=== PATIENT | female | born 1970 | race Two or more races ===

== ENCOUNTER → 2020-05-01 08:53 | Outpatient (BNVA) | payer OTHER, SELFPAY | PROVIDERS: PCP Internal Medicine; Visit Provider Physician Assistant Medical | DX: S43.51XA Sprain of right acromioclavicular joint, initial encounter (principal); S06.9X0A Unspecified intracranial injury without loss of consciousness, initial encounter; V43.61XA Car passenger injured in collision with sport utility vehicle in traffic accident, initial encounter | CPT/HCPCS: 72050; 73030; 99203 ==

== ENCOUNTER 2020-05-06 07:12 | Outpatient (REF) | payer OTHER, SELFPAY ==
[2020-05-06 09:01] LABS: Creatinine Urine 123.48 mg/dL; Microalbum/Creatinine Ratio Ur 6.4 ug/mg cr
== END 2020-05-06 07:13 | disposition home or self-care (01) ==
LOC: HO.LAB 07:12
PROVIDERS: Absent Provider Internal Medicine; PCP Internal Medicine; Visit Provider Internal Medicine Endocrinology, Diabetes & Metabolism
DX: E11.9 Type 2 diabetes mellitus without complications (principal)
CPT/HCPCS: 82043

== ENCOUNTER → 2020-05-08 13:05 | Outpatient (BNVA) | payer OTHER, SELFPAY | PROVIDERS: PCP Internal Medicine; Visit Provider Physician Assistant Medical | DX: S16.1XXA Strain of muscle, fascia and tendon at neck level, initial encounter (principal); S46.911A Strain of unspecified muscle, fascia and tendon at shoulder and upper arm level, right arm, initial encounter; S06.9X0A Unspecified intracranial injury without loss of consciousness, initial encounter; V89.2XXA Person injured in unspecified motor-vehicle accident, traffic, initial encounter | CPT/HCPCS: 99213 ==

== ENCOUNTER 2020-05-15 18:33 | Outpatient (REF) | payer OTHER, SELFPAY ==
--- NOTE | 2020-05-15 19:00 | MR_ITS ---
EXAMINATION: MR BRAIN WITHOUT CONTRAST CLINICAL INFORMATION: Concussion. Persistent headaches. COMPARISON: None. TECHNIQUE: Multiplanar, multisequence imaging of the brain was performed without contrast. FINDINGS: No diffusion abnormalities are identified to suggest an acute infarct. The ventricles are normal in size. No mass effect or midline shift is seen. No brain parenchymal signal abnormality is noted. No extra-axial fluid collections are seen. The brainstem and cerebellum are normal. The gradient refocused acquisition is normal. The craniovertebral junction, marrow signal, and midline structures are normal. The major intracranial flow voids at the level of the [place] are preserved. The dural venous sinus flow voids are maintained. The mastoid air cells are well aerated. There is mild to moderate ethmoid sinus mucosal thickening and milder left frontal sinus mucosal thickening. MR/MR head/brain wo con IMPRESSION: Normal MRI of the brain. No acute process. Mild to moderate ethmoid sinus mucosal thickening.
== END 2020-05-15 18:34 | disposition home or self-care (01) ==
LOC: HO.MRI 18:33
PROVIDERS: Visit Provider Internal Medicine
DX: S06.0X9A Concussion with loss of consciousness of unspecified duration, initial encounter (principal); R51.9 Headache, unspecified
CPT/HCPCS: 70551

== ENCOUNTER → 2020-05-22 08:49 | Outpatient (BNVA) | payer OTHER, SELFPAY | PROVIDERS: PCP Internal Medicine; Visit Provider Physician Assistant Medical | DX: S06.9X0D Unspecified intracranial injury without loss of consciousness, subsequent encounter (principal); S16.1XXD Strain of muscle, fascia and tendon at neck level, subsequent encounter; S43.51XD Sprain of right acromioclavicular joint, subsequent encounter; V89.2XXD Person injured in unspecified motor-vehicle accident, traffic, subsequent encounter | CPT/HCPCS: 99213 ==

== ENCOUNTER → 2020-05-30 09:43 | Outpatient (BNVA) | payer OTHER, SELFPAY | PROVIDERS: PCP Internal Medicine; Visit Provider Physician Assistant Medical | DX: S06.9X0D Unspecified intracranial injury without loss of consciousness, subsequent encounter (principal); S16.1XXD Strain of muscle, fascia and tendon at neck level, subsequent encounter; S43.51XD Sprain of right acromioclavicular joint, subsequent encounter; V89.2XXD Person injured in unspecified motor-vehicle accident, traffic, subsequent encounter | CPT/HCPCS: 99213 ==

== ENCOUNTER → 2020-06-16 10:50 | Outpatient (BNVA) | payer OTHER, SELFPAY | PROVIDERS: PCP Internal Medicine; Visit Provider Physician Assistant | DX: M54.40 Lumbago with sciatica, unspecified side (principal) | CPT/HCPCS: 99214 ==

== ENCOUNTER → 2020-06-20 08:53 | Outpatient (BNVA) | payer OTHER, SELFPAY | PROVIDERS: PCP Internal Medicine; Visit Provider Physician Assistant Medical | DX: S06.9X0D Unspecified intracranial injury without loss of consciousness, subsequent encounter (principal); S16.1XXD Strain of muscle, fascia and tendon at neck level, subsequent encounter; S43.50XD Sprain of unspecified acromioclavicular joint, subsequent encounter; V89.2XXD Person injured in unspecified motor-vehicle accident, traffic, subsequent encounter; M54.5 Low back pain | CPT/HCPCS: 99213 ==

== ENCOUNTER 2020-06-26 03:33 | Emergency (ER) | payer OTHER, SELFPAY ==
--- NOTE | ~2020-06-26 | US_ITS ---
EXAMINATION: US ABDOMEN LIMITED CLINICAL INFORMATION: Right upper quadrant pain.. COMPARISON: CT abdomen pelvis report 02/01/2011. TECHNIQUE: Targeted right upper quadrant grayscale and color Doppler ultrasonography of the gallbladder. FINDINGS: The gallbladder appears physiologically distended. No cholelithiasis is noted. The gallbladder wall thickness measures 2 mm, within normal limits of size. No pericholecystic fluid collections are identified. Incidentally visualized liver is normal in appearance without evidence of gross biliary duct dilatation. The visualized common bile duct measures 5.5 mm in width, within normal limits of size. The department coordinator report indicates real-time tenderness in the region of the gallbladder during sonographic evaluation. US/US abdomen limited IMPRESSION: 1. Normal sonographic appearance of the gallbladder. No cholelithiasis identified. The visualized common bile duct is normal in caliber. 2. Possible sonographic Cabral sign. The computer technologist reported tenderness in the region of the gallbladder during real-time sonographic evaluation.
--- NOTE | ~2020-06-26 | CT_ITS ---
EXAMINATION: CT ABDOMEN AND PELVIS WITHOUT CONTRAST CLINICAL INFORMATION: Right lower quadrant pain. COMPARISON: Abdominal ultrasound performed today, CT scan of the abdomen dated 02/01/2011. TECHNIQUE: Multidetector volumetric imaging was performed from the superior aspect of the liver through the pubic symphysis. Sagittal and coronal reformatted images were obtained on the technologist's workstation. Lack of intravenous and oral contrast limits visceral evaluation. This CT examination was performed using dose optimization techniques as appropriate, variously including the following: *Automated exposure control *Adjustment of mA and/or kV according to patient size (this includes techniques or standardized protocols for targeted exams where dose is matched to indication/reason for exam; i.e. extremities or head) *Use of iterative reconstruction technique DLP: 574 mGy-cm FINDINGS: LUNG BASES: The visualized lung bases are unremarkable. LIVER, GALLBLADDER, AND BILIARY TREE: Hepatic steatosis with areas of fatty sparing in the left lobe and in the right lobe towards the dome without definitive focal abnormality. PANCREAS: Unremarkable. SPLEEN: Unremarkable. ADRENAL GLANDS: Unremarkable. KIDNEYS AND URETERS: Moderate right hydroureteronephrosis and perinephric stranding are seen caused by a 0.4 cm calculus at the level the right ureterovesical junction (image 81, series 3). Several right intrarenal calculi are seen as well, the largest of which is seen in the lower pole measuring 0.3 cm (image 29, series 5). The left kidney and ureter are unremarkable. BLADDER: Unremarkable. GASTROINTESTINAL TRACT: The stomach, small bowel, appendix and large bowel are unremarkable. ABDOMINAL WALL: No significant hernia is appreciated. LYMPH NODES: No lymphadenopathy. VASCULAR: Unremarkable. PELVIC VISCERA: Unremarkable. OSSEOUS STRUCTURES: L5-S1 mild disc space narrowing. CT/CT abdomen pelvis wo con IMPRESSION: 1. Moderate right hydroureteronephrosis and perinephric stranding caused by a 0.4; a calculus at the level the right ureterovesical junction. Several punctate right intrarenal calculi as well. 2. Normal appendix. No evidence for acute appendicitis. 3. Hepatic steatosis with areas of fatty sparing.
[2020-06-26 03:58] VITALS: BP 130/74; PULSE 76; RESP 30; TEMP 36.6; O2SAT 100; BMI 21.6
[2020-06-26] MEDS: 0.9 % Sodium Chloride 1,000 ML 999 ML IV (04:06)
[2020-06-26 04:07] LABS: MANUAL DIFF FLAG NO
[2020-06-26 04:10] LABS: Glucose, Whole Blood 200 mg/dL (60-115)
[2020-06-26 04:10] LABS: Basophils Absolute Auto 0.1 X10*3/uL (0.0-0.2); Basophils Percent Auto 0.5 % (0-2); Eosinophils Absolute Auto 0.2 X10*3/uL (0.0-0.4); Eosinophils Percent Auto 1.6 % (0-4); Hematocrit 40.8 % (37-47); Hemoglobin 13.8 g/dl (12.0-16.0); Imm Gran Abs Auto 0.04 X10*3/uL (0.00-0.03); Imm Gran Pct Auto 0.3 % (0.0-0.4); Lymphocytes Absolute Auto 1.8 X10*3/uL (1.2-4.9); Lymphocytes Percent Auto 15.9 % (20-40); Mean Corpuscular HGB Conc 33.8 g/dl (31.0-35.0); Mean Corpuscular Hemoglobin 29.9 pg (27.0-33.0); Mean Corpuscular Volume 88.5 fL (80-98); Mean Platelet Volume 10.6 fL (9.4-12.3); Monocytes Absolute Auto 0.6 X10*3/uL (0.1-1.2); Monocytes Percent Auto 5.2 % (2-11); Neutrophils Absolute Auto 8.9 X10*3/uL (2.0-8.3); Neutrophils Percent Auto 76.5 % (45-73); Platelet Count 316 X10*3/uL (160-400); Red Blood Count 4.61 X10*6/uL (4.20-5.50); Red Cell Distribution Width 11.4 % (11.0-16.0); White Blood Count 11.6 X10*3/uL (4.8-10.8)
[2020-06-26 05:56] LABS: Appearance Urine CLEAR; Color Urine YELLOW; Glucose Urine UA 500 MG/DL (NEG); Leukocyte Esterase Urine NEG (NEG); Nitrite Urine NEG (NEG); Urine Blood 1+ (NEG); Urine Ketones >=80 MG/DL (NEG); Urine Protein NEG (NEG-TRACE)
[2020-06-26 06:02] LABS: Bacteria Urine TRACE /LPF; Squamous Epithelial Cell Urine TRACE /LPF; WBC Urine 0-2 /HPF (0-4)
[2020-06-26 06:35] LABS: Alanine Aminotransferase 29 U/L (0-31); Alkaline Phosphatase 66 U/L (39-117); Anion Gap 12 (12-20); Aspartate Amino Transferase 22 U/L (5-31); Bilirubin Total 0.8 mg/dL (0.0-1.0); Blood Urea Nitrogen 15 mg/dL (9-16); Calcium 7.8 mg/dL (8.4-10.2); Carbon Dioxide 22 mmol/L (22-29); Chloride 106 mmol/L (96-108); Creatinine Clr Calc Pharmacy 83.1; Estimated Glomerular Filt Rate > 60; Glucose Random 198 mg/dL (60-115); Potassium 3.4 mmol/L (3.3-5.1); Sodium 137 mmol/L (135-145); Total Protein 6.4 g/dL (6.5-8.0)
[2020-06-26 06:38] VITALS: BP 123/76; PULSE 74; RESP 12; TEMP 36.6; O2SAT 99
--- NOTE | 2020-06-26 06:43 | ED.ABDPAIN ---
HPI - Abdominal Pain General Chief Complaint: Abdominal Pain Stated Complaint: right side pain Time Seen by Provider: 06/26/20 06:43 Source: patient Mode of arrival: ambulatory Limitations: no limitations History of Present Illness HPI narrative: 49 yo female no prior surgeries comes in with RUQ pain post eating martiniquais food + nv but no diarrhea MD elicited complaint: abdominal pain Onset (ago): day(s) (last night) Pain Consistency: constant Location: RUQ and R flank Severity: severe Quality: stabbing and aching Radiation: none Migration to: no migration Exacerbating factors: vomiting and movement Relieving factors: nothing Context: possible food poisoning Associated symptoms: nausea Related Data Previous Rx's Medication Instructions Recorded hydrocodone-acetaminophen 1 tab PO Q6H PRN #15 tab 06/26/20 ondansetron 4 mg PO Q8H PRN #20 tab 06/26/20 prednisone 40 mg PO DAILY 4 Days #8 tab 06/26/20 tamsulosin 0.4 mg PO DAILY 5 Days #5 cap 06/26/20 Allergies Allergy/AdvReac Type Severity Reaction Status Date / Time aspirin [ASPIRIN] Allergy Severe REDNESS/SWELLING, Verified 06/26/20 03:58 facial swelling SEAFOOD Allergy Severe REDNESS/SWE Uncoded 01/24/20 16:22 LLING Review of Systems Review of Systems Constitutional : No Weight loss, No Fever, No Chills ENT/Mouth : No sore throat, No Rhinorrhea Eyes: No Swelling, No Redness Cardiovascular : No Chest Pain, No SOB, NoEdema Respiratory : No Cough, No Sputum, No Wheezing Gastrointestinal : Positive Nausea, Positive Vomiting, no Diarrhea, positive abdominal Pain, No Hematochezia, No Melena Genitourinary : No Dysuria, No Urinary Frequency, No Hematuria, No Urgency Musculoskeletal : No joint pain, No Myalgias, No Joint Swelling Skin : No Skin Lesions, No rash Neuro : No Weakness, No Numbness, No Dizziness, No Headache Psych : No Anxiety/Panic, No Depression Heme/Lymph: No Bruising, No Lymphadenopathy Endocrine : No Polyuria, No Polydipsia All other systems reviewed and are negative. Physical Exam Vital Signs: Vital Signs: Last Vital Signs Temp 97.9 F 06/26/20 06:38 Pulse 81 06/26/20 07:50 Resp 20 06/26/20 07:50 BP 128/76 06/26/20 07:50 Pulse Ox 100 06/26/20 07:50 Body Mass Index 21.6 Appearance: Alert. Oriented X3. No acute distress. Eyes: Pupils equal, round and reactive to light. ENT: Pharynx normal. Neck: Normal inspection. Neck supple. CVS: Normal heart rate and rhythm. Pulses normal. Respiratory: No respiratory distress. Breath sounds normal. Abdomen: Soft and moderate RUQ ttp no rebound or guarding but + [place] sign Skin: Skin warm and dry. Normal skin color. Normal skin turgor. Extremities: No lower extremity edema. No calf ttp Neuro: Oriented X 3. No motor deficit. No sensory deficit. Course Course Course Narrative: negative US given degree of pain CT scan for appendicitis / renal colic ordered repeat pain medications ordered, 4mm stone - IV steroids and flomax ordered, UA negative for infection patient tolerating PO - anticipate DC home with Urology follow up MDM - Abdominal Pain MDM Narrative Medical decision making narrative: 49 yo female with DM ate martiniquais food last night since then RUQ pain + Cabral's sign at this time will obtain labs, IV morphine for pain, US to evaluate GB, dispo per results and findings Lab Data Result diagrams: 06/26/20 04:01 06/26/20 05:50 Labs: Lab Results 06/26/20 06/26/20 06/26/20 Range/Units 04:01 04:01 04:02 WBC 11.6 H (4.8-10.8) X10*3/uL RBC 4.61 (4.20-5.50) X10*6/uL Hgb 13.8 (12.0-16.0) g/dl Hct 40.8 (37-47) % MCV 88.5 (80-98) fL MCH 29.9 (27.0-33.0) pg MCHC 33.8 (31.0-35.0) g/dl RDW 11.4 (11.0-16.0) % Plt Count 316 (160-400) X10*3/uL MPV 10.6 (9.4-12.3) fL Immature Gran % (Auto) 0.3 (0.0-0.4) % Neut % (Auto) 76.5 H (45-73) % Lymph % (Auto) 15.9 L (20-40) % [place] % (Auto) 5.2 (2-11) % Eos % (Auto) 1.6 (0-4) % Baso % (Auto) 0.5 (0-2) % Lymph # (Auto) 1.8 (1.2-4.9) X10*3/uL [place] # (Auto) 0.6 (0.1-1.2) X10*3/uL Eos # (Auto) 0.2 (0.0-0.4) X10*3/uL Baso # (Auto) 0.1 (0.0-0.2) X10*3/uL Abs Immat Gran (auto) 0.04 H (0.00-0.03) X10*3/uL Absolute Neuts (auto) 8.9 H (2.0-8.3) X10*3/uL Absolute Nucleated RBC 0.000 (0.0-0.012) X10*3/uL Nucleated RBC % (auto) 0.0 (0.0-0.2) /100WBC Hold Blue Top SEE NOTE Sodium (135-145) mmol/L Potassium (3.3-5.1) mmol/L Chloride (96-108) mmol/L Carbon Dioxide (22-29) mmol/L Anion Gap (12-20) BUN (9-16) mg/dL Creatinine (0.5-1.4) mg/dL Estim Creat Clear Calc Estimated GFR POC Glucose 200 H (60-115) mg/dL Random Glucose (60-115) mg/dL Calcium (8.4-10.2) mg/dL Total Bilirubin (0.0-1.0) mg/dL AST (5-31) U/L ALT (0-31) U/L Alkaline Phosphatase (39-117) U/L Total Protein (6.5-8.0) g/dL Albumin (3.5-5.0) g/dL Lipase (8-78) U/L Urine Color Urine Appearance Urine pH (5.0-8.0) Ur Specific [place] (1.005-1.025) Urine Protein (NEG-TRACE) MG/DL Urine Glucose (UA) (NEG) MG/DL Urine Ketones (NEG) MG/DL Urine Blood (NEG) Urine Nitrite (NEG) Ur Leukocyte Esterase (NEG) Urine RBC (0) /HPF Urine WBC (0-4) /HPF Ur Squamous Epith Cells /LPF Urine Bacteria /LPF COVID-19 (MARISOL) (Negative) COVID-19 Clin Com 06/26/20 06/26/20 06/26/20 Range/Units 05:50 05:50 07:49 WBC (4.8-10.8) X10*3/uL RBC (4.20-5.50) X10*6/uL Hgb (12.0-16.0) g/dl Hct (37-47) % MCV (80-98) fL MCH (27.0-33.0) pg MCHC (31.0-35.0) g/dl RDW (11.0-16.0) % Plt Count (160-400) X10*3/uL MPV (9.4-12.3) fL Immature Gran % (Auto) (0.0-0.4) % Neut % (Auto) (45-73) % Lymph % (Auto) (20-40) % [place] % (Auto) (2-11) % Eos % (Auto) (0-4) % Baso % (Auto) (0-2) % Lymph # (Auto) (1.2-4.9) X10*3/uL [place] # (Auto) (0.1-1.2) X10*3/uL Eos # (Auto) (0.0-0.4) X10*3/uL Baso # (Auto) (0.0-0.2) X10*3/uL Abs Immat Gran (auto) (0.00-0.03) X10*3/uL Absolute Neuts (auto) (2.0-8.3) X10*3/uL Absolute Nucleated RBC (0.0-0.012) X10*3/uL Nucleated RBC % (auto) (0.0-0.2) /100WBC Hold Blue Top Sodium 137 (135-145) mmol/L Potassium 3.4 (3.3-5.1) mmol/L Chloride 106 (96-108) mmol/L Carbon Dioxide 22 (22-29) mmol/L Anion Gap 12 (12-20) BUN 15 (9-16) mg/dL Creatinine 0.72 (0.5-1.4) mg/dL Estim Creat Clear Calc 83.1 Estimated GFR > 60 POC Glucose (60-115) mg/dL Random Glucose 198 H (60-115) mg/dL Calcium 7.8 L (8.4-10.2) mg/dL Total Bilirubin 0.8 (0.0-1.0) mg/dL AST 22 (5-31) U/L ALT 29 (0-31) U/L Alkaline Phosphatase 66 (39-117) U/L Total Protein 6.4 L (6.5-8.0) g/dL Albumin 4.0 (3.5-5.0) g/dL Lipase 14 (8-78) U/L Urine Color YELLOW Urine Appearance CLEAR Urine pH 7.0 (5.0-8.0) Ur Specific [place] 1.020 (1.005-1.025) Urine Protein NEG (NEG-TRACE) MG/DL Urine Glucose (UA) 500 H (NEG) MG/DL Urine Ketones >=80 (NEG) MG/DL Urine Blood 1+ H (NEG) Urine Nitrite NEG (NEG) Ur Leukocyte Esterase NEG (NEG) Urine RBC 1-4 (0) /HPF Urine WBC 0-2 (0-4) /HPF Ur Squamous Epith Cells TRACE /LPF Urine Bacteria TRACE /LPF COVID-19 (MARISOL) Negative (Negative) COVID-19 Clin Com See Note ECG Data Attestation: I personally reviewed and interpreted this ECG as follows: ECG interpretation date: 06/26/20 ECG interpretation time: 08:04 Interpretation: Rate: 76 Rhythm: NSR [place]: normal Normal P waves. Normal INEZ. Normal QRS complex. ST T wave : normal , no CHARISSA qTC: normal prior studies: no acute ischemia The study has been interpreted contemporaneously by me. . Discharge Plan Discharge Clinical Impression: Calculus of kidney Patient Disposition: Home, Self-Care Instructions: Renal Colic (ED) Additional Instructions: return to ED for any worsening symptoms or concerns IF YOU ARE STILL HAVING PAIN ON TUESDAY PLEASE CALL UROLOGIST, PREDNISONE WILL INCREASE YOUR BLOOD SUGARS MONITOR CAREFULLY Prescriptions: New hydrocodone-acetaminophen 5-325 mg tablet 1 tab PO Q6H PRN (Reason: pain) Qty: 15 RF: 0 prednisone 20 mg tablet 40 mg PO DAILY 4 Days Qty: 8 RF: 0 ondansetron 4 mg tablet,disintegrating 4 mg PO Q8H PRN (Reason: nausea and vomiting) Qty: 20 RF: 0 tamsulosin 0.4 mg capsule 0.4 mg PO DAILY 5 Days Qty: 5 RF: 0 Referrals: Remington Reeves MD [Physician] - 5 days Stand Alone Forms: Work/School Release [facility] Past Medical History Medical History Asthma Diabetes Social History Social History Alcohol intake: never Smoking Status: Never smoker Use of substances other than those prescribed or required for medical reasons: No Advance Directives: No
--- NOTE | 2020-06-26 06:49 | ECG_ITS ---
Test Reason : ABD PAIN Blood Pressure : / mmHG Vent. Rate : 076 BPM Atrial Rate : 076 BPM P-R Int : 142 ms QRS Dur : 078 ms QT Int : 406 ms P-R-T Axes : 071 051 039 degrees QTc Int : 456 ms Normal sinus rhythm Normal ECG No previous ECGs available Referred By: Tiny Aaron Electronically Signed By:Kartik Calzada
[2020-06-26] MEDS: 0.9 % Sodium Chloride 1,000 ML 999 ML IVCONT (07:00)
[2020-06-26] MEDS: Morphine Sulfate 4 MG/ML CARTRIDGE IVPUSH (07:01)
[2020-06-26] MEDS: ondansetron HCL 4 MG/2 ML VIAL IVPUSH (07:01)
[2020-06-26 07:06] LABS: Lipase 14 U/L (8-78)
[2020-06-26 07:50] VITALS: BP 128/76; PULSE 81; RESP 20; O2SAT 100
[2020-06-26 08:13] LABS: COVID-19 Test Negative (Negative)
[2020-06-26] MEDS: HYDROmorphone HCl 0.5 MG/0.5 ML SYRINGE IVPUSH (10:06)
[2020-06-26] MEDS: methylPREDNISolone Sod Succ/PF 125 MG/2 ML VIAL 60 MG IVPUSH (10:06)
[2020-06-26] MEDS: Tamsulosin HCL 0.4 MG CAPSULE PO (10:06)
--- NOTE | 2020-06-26 10:09 | PC.NURSE ---
SITTING UP IN BED. BREATHING EVEN, NON-LABORED. MEDICATED CHARTED FOR 10 PAIN. NO APPARENT DISTRESS AT THIS TIME.
== END 2020-06-26 13:11 | disposition home or self-care (01) ==
PROVIDERS: Emergency Provider Emergency Medicine; PCP Internal Medicine
DX: N13.2 Hydronephrosis with renal and ureteral calculous obstruction (principal); Z20.822 Contact with and (suspected) exposure to COVID-19; E11.9 Type 2 diabetes mellitus without complications
CPT/HCPCS: 36415; 74176; 76705; 80053; 81001; 82947; 83690; 85025; 87635; 93005; 96361; 96374; 96375; 99284; J1170; J2270; J2405; J2930

== ENCOUNTER → 2020-07-04 14:52 | Outpatient (BNVA) | payer OTHER, SELFPAY | PROVIDERS: PCP Internal Medicine; Visit Provider Physician Assistant Medical | DX: S49.91XD Unspecified injury of right shoulder and upper arm, subsequent encounter (principal); X58.XXXD Exposure to other specified factors, subsequent encounter; M54.5 Low back pain | CPT/HCPCS: 99213 ==

== ENCOUNTER 2020-07-08 07:52 | Outpatient (REF) | payer OTHER, SELFPAY ==
--- NOTE | ~2020-07-08 | MR_ITS ---
EXAMINATION: MR SHOULDER WITHOUT CONTRAST, RIGHT CLINICAL INFORMATION: Trauma. Tenderness to palpation. Patient reports injury, pain. COMPARISON: X-ray 05/01/2020. TECHNIQUE: MRI of the shoulder without contrast was performed on a high-field scanner. FINDINGS: ROTATOR CUFF: Mild supraspinatus tendinosis. Perhaps thin linear interstitial tearing in the middle fibers. No tendon defect or full-thickness tear is seen. Infraspinatus, teres minor is intact. Mild subscapularis tendinosis. No muscle atrophy or fatty infiltration. BICEPS: Intact. CORACOACROMIAL ARCH: The undersurface of the acromion is flat with no subacromial spur. Mild AC joint arthritis, with bony spurring, some edema within the joint. A component of sprain injury is difficult to exclude. The borderline malalignment on the prior x-ray is not evident on the MRI. Minimal subacromial subdeltoid bursitis. LABRUM/CAPSULE: Linear signal suspicious for tear in the superior labrum, which may be extending into the biceps labral anchor. The tear extends to involve the posterosuperior labrum. Inferior capsule is intact. GLENOHUMERAL JOINT/MARROW: No suspicious marrow signal changes. Small joint fluid. No fracture. No axillary lymphadenopathy. MR/MR shoulder RT wo con IMPRESSION: 1. Mild supraspinatus tendinosis. There may be thin linear interstitial tearing in the middle fibers. No measurable tear or retraction is otherwise seen. 2. Mild subscapularis tendinosis. 3. Tear of the superior and the posterosuperior labrum. Possible subtle extension of the tear into the biceps labral anchor. 4. Mild acromioclavicular osteoarthritis. Component of acromioclavicular sprain injury is difficult to exclude.
== END 2020-07-08 07:53 | disposition home or self-care (01) ==
LOC: HO.MRI 07:52
PROVIDERS: Visit Provider Internal Medicine
DX: M25.511 Pain in right shoulder (principal)
CPT/HCPCS: 73221

== ENCOUNTER → 2020-07-10 13:37 | Outpatient (BNVA) | payer OTHER, SELFPAY | PROVIDERS: Visit Provider Urology ==

== ENCOUNTER → 2020-07-18 08:50 | Outpatient (BNVA) | payer OTHER, SELFPAY | PROVIDERS: Visit Provider Physician Assistant Medical | DX: S43.401D Unspecified sprain of right shoulder joint, subsequent encounter (principal); V89.2XXD Person injured in unspecified motor-vehicle accident, traffic, subsequent encounter; M54.5 Low back pain; M53.3 Sacrococcygeal disorders, not elsewhere classified; F07.81 Postconcussional syndrome; R42 Dizziness and giddiness | CPT/HCPCS: 99213 ==

== ENCOUNTER 2020-07-25 10:00 | Outpatient (RCR) | payer OTHER, SELFPAY ==
--- NOTE | 2020-05-06 09:20 | MHC.PT.EP ---
[facility] [place] Office [place] Office [place] Office [address] 140 [facility] [phone] F: [phone] F: [phone] F: [phone] F: [phone] Physical Therapy Plan of Care Date of Evaluation: 05/06/20 Date of Surgery: Diagnosis: concussion, right shoulder pain Assessment: The patient had right shoulder pain, limited ROM and slightly limited strength with shoulder ER and abduction. Pt has painful functional reaching. She is a good candidate for skilled Physical therapy to help restore ROM, strength, and pain free functional reaching. Frequency and Duration: The patient will be seen 2x/week x 4 weeks Short Term Goals: 1. Pt to have restored PROM to help facilitate return to functional reaching. Client Professional Goals: 4 weeks - The patient to have greater than 160 degrees of flexion and abduction to show improved functional ROM. 4 weeks ? The patient to have 5/5 strength with flexion and abduction to demonstrate functional strength 4 weeks ? The patient to be able to return to all functional reaching, self care ADL's without any limitation from pain or loss of ROM. Treatment Plan: Modalities to reduce pain, spasms and effusion. Manual therapy to restore motion and function. Therapeutic exercise to improve strength and flexibility. Neuromuscular re-education for posture and balance. Therapeutic activities to return to functional activities of daily living. Electronically signed by: Paulina Lin PT DPT Please sign and return to therapist. Thank you for your referral.
== END 2020-11-04 08:00 | disposition home or self-care (01) ==
LOC: HO.PT 10:00
PROVIDERS: PCP Internal Medicine; Visit Provider Physician Assistant Medical
DX: M79.18 Myalgia, other site (principal)
CPT/HCPCS: 97014; 97110; 97112; 97140; 97162

== ENCOUNTER → 2020-08-12 09:56 | Outpatient (BNVA) | payer OTHER, SELFPAY | PROVIDERS: Visit Provider Physician Assistant | DX: S43.401D Unspecified sprain of right shoulder joint, subsequent encounter (principal); V89.2XXD Person injured in unspecified motor-vehicle accident, traffic, subsequent encounter; M54.5 Low back pain; F07.81 Postconcussional syndrome | CPT/HCPCS: 99213 ==

== ENCOUNTER → 2020-09-03 09:05 | Outpatient (BNVA) | payer OTHER, SELFPAY | PROVIDERS: Visit Provider Physician Assistant Medical | DX: S43.401D Unspecified sprain of right shoulder joint, subsequent encounter (principal); V89.2XXD Person injured in unspecified motor-vehicle accident, traffic, subsequent encounter; M54.5 Low back pain; F07.81 Postconcussional syndrome | CPT/HCPCS: 99213 ==

== ENCOUNTER → 2020-10-22 09:15 | Outpatient (BNVA) | payer OTHER, SELFPAY | PROVIDERS: Visit Provider Physician Assistant Medical | DX: S43.401D Unspecified sprain of right shoulder joint, subsequent encounter (principal); V89.2XXD Person injured in unspecified motor-vehicle accident, traffic, subsequent encounter; F07.81 Postconcussional syndrome | CPT/HCPCS: 99213 ==

== ENCOUNTER 2021-01-09 15:09 | Outpatient (REF) | payer OTHER, SELFPAY ==
--- NOTE | ~2021-01-09 | US_ITS ---
EXAMINATION: US RETROPERITONEAL LIMITED (RENAL ONLY) CLINICAL INFORMATION: Calculus of kidney. COMPARISON: CT abdomen and pelvis without contrast dated 06/26/2020. Ultrasound abdomen limited dated 06/26/2020. TECHNIQUE: Real-time imaging of the kidneys. FINDINGS: RIGHT KIDNEY: 13.4 x 4.6 x 5.3 cm (SAG x AP x TRV). The kidney is normal in size, contour, and echogenicity. Renal cortical thickness is normal. There is a 6 mm stone in the lower pole. No focal parenchymal lesions or hydronephrosis. LEFT KIDNEY: 12.7 x 5.8 x 5.9 cm (SAG x AP x TRV). The kidney is normal in size, contour, and echogenicity. Renal cortical thickness is normal. There is a 5 mm stone in the midpole. No focal parenchymal lesions or hydronephrosis. US/US renal BI IMPRESSION: Bilateral renal stones.
== END 2021-01-09 15:10 | disposition home or self-care (01) ==
LOC: HO.US 15:09
PROVIDERS: Visit Provider Urology
DX: N20.0 Calculus of kidney (principal)
CPT/HCPCS: 76775

== ENCOUNTER 2021-02-18 14:01 | Outpatient (REF) | payer OTHER, SELFPAY ==
--- NOTE | ~2021-02-18 | MM_ITS ---
EXAMINATION: MM SCREENING DIGITAL BREAST TOMOSYNTHESIS, BILATERAL CLINICAL INFORMATION: Screening. Asymptomatic. The lifetime risk of breast cancer based on the Tyrer-Cuzick Model is 4%. COMPARISON: Mammography: 02/04/2020, 01/19/2019, 12/20/2017 TECHNIQUE: Digital breast tomosynthesis is performed in both the craniocaudal and mediolateral oblique views along with computer-aided detection (CAD). Synthesized 2D images are generated from the tomosynthesis. FINDINGS: There are scattered areas of fibroglandular density (ACR BI-RADS breast composition Category b). There are no significant masses, abnormal calcifications, or other abnormalities. The axilla and skin contours are unremarkable. MM/MM tomosynthesis screening BI IMPRESSION: No mammographic evidence of malignancy. ASSESSMENT: BI-RADS 1: Negative RECOMMENDATION: Routine annual mammography screening. This patient's information was entered into a reminder system with a target due date for their next mammogram.
== END 2021-02-18 14:02 | disposition home or self-care (01) ==
LOC: HO.MAMMO 14:01
PROVIDERS: Visit Provider Internal Medicine
DX: Z12.31 Encounter for screening mammogram for malignant neoplasm of breast (principal)
CPT/HCPCS: 77063; 77067

== ENCOUNTER → 2021-06-11 09:54 | Outpatient (BNVA) | payer OTHER, SELFPAY | PROVIDERS: PCP Internal Medicine; Visit Provider Nurse Practitioner Family ==

== ENCOUNTER → 2021-07-02 08:14 | Outpatient (BNVA) | payer OTHER, SELFPAY | PROVIDERS: PCP Internal Medicine; Visit Provider Nurse Practitioner Family | DX: F07.81 Postconcussional syndrome (principal); G43.009 Migraine without aura, not intractable, without status migrainosus; M54.2 Cervicalgia; Z79.899 Other long term (current) drug therapy | CPT/HCPCS: 99212 ==

== ENCOUNTER 2021-08-21 06:31 | Outpatient (REF) | payer OTHER, SELFPAY ==
--- NOTE | ~2021-08-21 | US_ITS ---
EXAMINATION: US RETROPERITONEAL LIMITED (RENAL ONLY) CLINICAL INFORMATION: Calculus of kidney. COMPARISON: X-ray abdomen KUB same date. Renal ultrasound 01/09/2021. CT abdomen and pelvis 06/26/2020. TECHNIQUE: Real-time imaging of the kidneys. FINDINGS: RIGHT KIDNEY: 12.4 x 4.5 x 7.3 cm (SAG x AP x TRV). The kidney is normal in size, contour, and echogenicity. Renal cortical thickness is normal. No focal parenchymal lesions or hydronephrosis. Within the lower pole there is an echogenic structure representing a calculus measuring 7 x 6 x 8 mm in size. LEFT KIDNEY: 11.6 x 6.3 x 5.5 cm (SAG x AP x TRV). The kidney is normal in size, contour, and echogenicity. Renal cortical thickness is normal. No calculi or focal parenchymal lesions. No hydronephrosis. US/US renal BI IMPRESSION: Nonobstructing 8 mm right renal lower pole calculus.
--- NOTE | ~2021-08-21 | XR_ITS ---
EXAMINATION: XR ABDOMEN KUB CLINICAL INDICATION: Calculus of kidney COMPARISON: Renal ultrasound from the same day TECHNIQUE: AP view of the abdomen. FINDINGS: Large stool burden throughout the colon. There is a punctate calcification projecting over the lower pole of the right kidney. No clear left-sided renal calculi. No clear ureteral or bladder calculi. XR/XR KUB IMPRESSION: Large stool burden throughout the colon and rectum limiting evaluation. Suspect a punctate calcification in the lower pole of the right kidney.
[2021-08-21 07:31] LABS: Appearance Urine CLEAR; Color Urine YELLOW; Glucose Urine UA >=1000 MG/DL (NEG); Leukocyte Esterase Urine NEG (NEG); Nitrite Urine NEG (NEG); PH 5.5 (5.0-8.0); Specific Gravity - Urine >= 1.030 (1.005-1.025); Urine Blood NEG (NEG); Urine Ketones NEG (NEG); Urine Protein NEG (NEG-TRACE)
[2021-08-21 07:52] LABS: Alanine Aminotransferase 25 U/L (0-31); Albumin Level 4.1 g/dL (3.5-5.0); Alkaline Phosphatase 72 U/L (39-117); Anion Gap 11 (12-20); Aspartate Amino Transferase 14 U/L (5-31); Bilirubin Total 0.6 mg/dL (0.0-1.0); Blood Urea Nitrogen 11 mg/dL (9-16); Calcium 9.8 mg/dL (8.4-10.2); Carbon Dioxide 25 mmol/L (22-29); Chloride 104 mmol/L (96-108); Cholesterol 144 mg/dL; Estimated Glomerular Filt Rate > 60; Glucose Random 243 mg/dL (60-115); HDL Cholesterol 34 mg/dL; LDL Cholesterol Calculated 88 mg/dl; Potassium 4.5 mmol/L (3.3-5.1); Sodium 135 mmol/L (135-145); Total Protein 7.1 g/dL (6.5-8.0); Triglycerides 110 mg/dL
[2021-08-21 07:54] LABS: Estimated Average Glucose 177 mg/dL; Hemoglobin A1c % 7.8 %
[2021-08-21 08:04] LABS: Free T4 (Free Thyroxine) 0.91 ng/dL (0.71-1.85)
[2021-08-21 08:06] LABS: RBC Urine 0 /HPF (0); Squamous Epithelial Cell Urine 2+ /LPF; WBC Urine 0-2 /HPF (0-4)
== END 2021-08-21 06:32 | disposition home or self-care (01) ==
LOC: HO.US 06:31
PROVIDERS: Absent Provider Internal Medicine Endocrinology, Diabetes & Metabolism; PCP Internal Medicine
DX: N20.0 Calculus of kidney (principal); E05.90 Thyrotoxicosis, unspecified without thyrotoxic crisis or storm; E11.9 Type 2 diabetes mellitus without complications
CPT/HCPCS: 36415; 74018; 76775; 80053; 80061; 81001; 83036; 84439

== ENCOUNTER → 2021-09-14 14:50 | Outpatient (BNVA) | payer OTHER, SELFPAY | PROVIDERS: PCP Internal Medicine | DX: Z13.89 Encounter for screening for other disorder (principal) ==

== ENCOUNTER → 2021-09-28 07:44 | Outpatient (BNVA) | payer OTHER, SELFPAY | PROVIDERS: PCP Internal Medicine; Visit Provider Nurse Practitioner Family | DX: F07.81 Postconcussional syndrome (principal) ==

== ENCOUNTER → 2021-10-02 14:33 | Outpatient (BNVA) | payer OTHER, SELFPAY | PROVIDERS: PCP Internal Medicine; Visit Provider Urology | DX: N20.0 Calculus of kidney (principal) ==

== ENCOUNTER 2021-11-05 06:12 | Outpatient (REF) | payer OTHER, SELFPAY ==
[2021-11-05 09:12] LABS: Estimated Average Glucose 186 mg/dL; Hemoglobin A1c % 8.1 %
[2021-11-05 09:25] LABS: Alanine Aminotransferase 41 U/L (0-31); Albumin Level 4.1 g/dL (3.5-5.0); Alkaline Phosphatase 70 U/L (39-117); Anion Gap 12 (12-20); Aspartate Amino Transferase 21 U/L (5-31); Bilirubin Total 0.5 mg/dL (0.0-1.0); Blood Urea Nitrogen 12 mg/dL (9-16); Calcium 9.2 mg/dL (8.4-10.2); Carbon Dioxide 27 mmol/L (22-29); Chloride 103 mmol/L (96-108); Cholesterol 243 mg/dL; Estimated Glomerular Filt Rate > 60; Glucose Random 187 mg/dL (60-115); HDL Cholesterol 40 mg/dL; LDL Cholesterol Calculated 149 mg/dl; Potassium 4.7 mmol/L (3.3-5.1); Sodium 137 mmol/L (135-145); Triglycerides 272 mg/dL
[2021-11-05 09:50] LABS: Free T4 (Free Thyroxine) 0.81 ng/dL (0.71-1.85); Thyroid Stimulating Hormone 0.89 uIU/mL (0.32-4.0)
[2021-11-05 11:45] LABS: Creatinine Urine 179.89 mg/dL; Microalbum/Creatinine Ratio Ur 5.5 ug/mg cr
== END 2021-11-05 06:13 | disposition home or self-care (01) ==
LOC: HO.LAB 06:12
PROVIDERS: PCP Internal Medicine; Visit Provider Internal Medicine Endocrinology, Diabetes & Metabolism
DX: E11.9 Type 2 diabetes mellitus without complications (principal); E05.90 Thyrotoxicosis, unspecified without thyrotoxic crisis or storm
CPT/HCPCS: 36415; 80053; 80061; 82043; 83036; 84439; 84443

== ENCOUNTER 2022-02-02 06:09 | Outpatient (REF) | payer OTHER, SELFPAY ==
[2022-02-02 07:22] LABS: Estimated Average Glucose 146 mg/dL; Hemoglobin A1c % 6.7 %
[2022-02-02 07:43] LABS: Alanine Aminotransferase 39 U/L (0-31); Albumin Level 4.2 g/dL (3.5-5.0); Alkaline Phosphatase 85 U/L (39-117); Anion Gap 15 (12-20); Aspartate Amino Transferase 22 U/L (5-31); Bilirubin Total 0.4 mg/dL (0.0-1.0); Blood Urea Nitrogen 13 mg/dL (9-16); Calcium 9.6 mg/dL (8.4-10.2); Carbon Dioxide 25 mmol/L (22-29); Chloride 104 mmol/L (96-108); Cholesterol 139 mg/dL; Estimated Glomerular Filt Rate > 60; Glucose Random 191 mg/dL (60-115); HDL Cholesterol 37 mg/dL; LDL Cholesterol Calculated 72 mg/dl; Sodium 139 mmol/L (135-145); Triglycerides 154 mg/dL
[2022-02-02 07:50] LABS: Creatinine Urine 158.13 mg/dL; Microalbum/Creatinine Ratio Ur 6.3 ug/mg cr
[2022-02-02 08:06] LABS: Free T4 (Free Thyroxine) 0.89 ng/dL (0.71-1.85); Thyroid Stimulating Hormone 0.55 uIU/mL (0.32-4.0)
== END 2022-02-02 06:10 | disposition home or self-care (01) ==
LOC: HO.LABR 06:09
PROVIDERS: PCP Internal Medicine; Visit Provider Internal Medicine Endocrinology, Diabetes & Metabolism
DX: E11.9 Type 2 diabetes mellitus without complications (principal); E05.90 Thyrotoxicosis, unspecified without thyrotoxic crisis or storm
CPT/HCPCS: 36415; 80053; 80061; 82043; 83036; 84439; 84443

== ENCOUNTER 2022-02-19 14:58 | Outpatient (REF) | payer OTHER, SELFPAY ==
--- NOTE | ~2022-02-19 | MM_ITS ---
EXAMINATION: MM SCREENING DIGITAL BREAST TOMOSYNTHESIS, BILATERAL CLINICAL INFORMATION: Screening. Asymptomatic. The lifetime risk of breast cancer based on the Tyrer-Cuzick Model is 7%. COMPARISON: Mammography: 11/18/2020, 02/04/2020, 01/19/2019 TECHNIQUE: Digital breast tomosynthesis is performed in both the craniocaudal and mediolateral oblique views along with computer-aided detection (CAD). Synthesized 2D images are generated from the tomosynthesis. FINDINGS: There are scattered areas of fibroglandular density (ACR BI-RADS breast composition Category b). There are no significant masses, abnormal calcifications, or other abnormalities. No developing density or architectural abnormality. The axilla are unremarkable. MM/MM tomosynthesis screening BI IMPRESSION: No mammographic evidence of malignancy. ASSESSMENT: BI-RADS 1: Negative RECOMMENDATION: Routine annual mammography screening. This patient's information was entered into a reminder system with a target due date for their next mammogram.
== END 2022-02-19 14:59 | disposition home or self-care (01) ==
LOC: HO.MAMMO 14:58
PROVIDERS: PCP Internal Medicine; Visit Provider Internal Medicine
DX: Z12.31 Encounter for screening mammogram for malignant neoplasm of breast (principal)
CPT/HCPCS: 77063; 77067

== ENCOUNTER 2022-03-22 15:34 | Outpatient (REF) | payer OTHER, SELFPAY ==
--- NOTE | ~2022-03-22 | US_ITS ---
EXAMINATION: US RETROPERITONEAL LIMITED (RENAL ONLY) CLINICAL INFORMATION: Calculus of kidney. COMPARISON: Ultrasound retroperitoneal limited (renal only) 08/21/2021 and 01/09/2021. X-ray abdomen KUB 08/21/2021. CT abdomen and pelvis without contrast 06/26/2020. TECHNIQUE: Real-time imaging of the kidneys. FINDINGS: RIGHT KIDNEY: 12.0 x 4.4 x 4.9 cm (SAG x AP x TRV). The kidney is normal in size, contour, and echogenicity. Renal cortical thickness is normal. No focal parenchymal lesions or hydronephrosis. There is an echogenic stone lower pole measuring 0.8 cm. LEFT KIDNEY: 11.6 x 6.3 x 5.0 cm (SAG x AP x TRV). The kidney is normal in size, contour, and echogenicity. Renal cortical thickness is normal. No calculi or focal parenchymal lesions. No hydronephrosis. US/US renal BI IMPRESSION: 1. Nonobstructive echogenic stone lower pole right kidney. 2. The left kidney is unremarkable.
== END 2022-03-22 15:35 | disposition home or self-care (01) ==
LOC: HO.US 15:34
PROVIDERS: Visit Provider Urology
DX: N20.0 Calculus of kidney (principal)
CPT/HCPCS: 76775

== ENCOUNTER 2022-04-14 06:24 | Day surgery (SDC) | payer OTHER, SELFPAY ==
--- NOTE | 2022-04-13 09:01 | HO.ANESPROP2 ---
Documented by User: Faviola Altman NP 04/13/22 09:03 HPI - Anesthesia Eval Consult details Narrative: 51yo F for Right Lithotripsy ESW No previous ESWL on record PMFSH Active Problems Active Problems: All Active Problems (Updated 04/08/22 @ 13:45 by Daniela Alan RN) Nephrolithiasis (Acute) Postconcussional syndrome (Acute) Migraine without aura (Acute) Cervicalgia (Acute) Past Medical History Medical History (Updated 04/08/22 @ 13:45 by Daniela Alan RN) Acid reflux Asthma Diabetes Elevated cholesterol Kidney stones Migraine Thyroid disease Family History Family History Father Diabetes Mother Diabetes Surgical History Surgical History Hx of section Social History Social History Household Members: Spouse and Children Housing: Apartment Alcohol intake: former Patient Tobacco Use Status: Never used Tobacco Use of substances other than those prescribed or required for medical reasons: No Are you DNR?: No Advance Directives: No Advance Directives Information Provided: Yes Meds Allergies Allergy/AdvReac Type Severity Reaction Status Date / Time aspirin [ASPIRIN] Allergy Severe REDNESS/SWELLING, Verified 03/18/22 07:55 facial swelling SEAFOOD Allergy Severe REDNESS/SWE Uncoded 03/18/22 07:55 LLING Home Medications Medication Instructions Recorded Confirmed Last Taken Type dulaglutide 3 mg/0.5 mL 3 mg subcut QWEEK 06/11/21 03/18/22 Unknown History subcutaneous pen injector (Trulicity) glipizide 10 mg tablet, extended 10 mg PO DAILY 06/11/21 04/08/22 Unknown History release 24 hr metformin 1,000 mg tablet 1,000 mg PO BID 06/11/21 04/08/22 Unknown History magnesium oxide 400 mg (241.3 mg 400 mg PO BEDTIME PRN as directed 09/28/21 04/08/22 Unknown History magnesium) tablet atorvastatin 80 mg tablet 80 mg PO DAILY 03/18/22 04/08/22 Unknown History dulaglutide 4.5 mg/0.5 mL 4.5 mg subcut QWEEK 04/05/22 Unknown History subcutaneous pen injector (Trulicity) Exam Exam Date and Time: April 13, [id number] Pertinent Lab Results Pertinent Lab Results: Laboratory Tests 06/26/20 02/02/22 04:01 06:14 WBC 11.6 H Hgb 13.8 Hct 40.8 Plt Count 316 Sodium 139 Potassium 5.0 Chloride 104 Carbon Dioxide 25 BUN 13 Creatinine 0.68 Assessment and Plan Assessment Anesthesia Assessment: Chart Reviewed Documented by User: Stacia Rodríguez MD 04/14/22 08:43 [facility] Past Medical History Medical History (Updated 04/08/22 @ 13:45 by Daniela Alan RN) Acid reflux Asthma Diabetes Elevated cholesterol Kidney stones Migraine Thyroid disease Family History Family History Father Diabetes Mother Diabetes Family history of problems with anesthesia: No Surgical History Surgical History Hx of section History of Problems with Anesthesia: No Social History Social History Household Members: Spouse and Children Housing: Apartment Alcohol intake: former Patient Tobacco Use Status: Never used Tobacco Use of substances other than those prescribed or required for medical reasons: No Are you DNR?: No Advance Directives: No Advance Directives Information Provided: Yes Meds Allergies Allergy/AdvReac Type Severity Reaction Status Date / Time aspirin [ASPIRIN] Allergy Severe REDNESS/SWELLING, Verified 03/18/22 07:55 facial swelling SEAFOOD Allergy Severe REDNESS/SWE Uncoded 03/18/22 07:55 LLING Home Medications Medication Instructions Recorded Confirmed Last Taken Type dulaglutide 3 mg/0.5 mL 3 mg subcut QWEEK 06/11/21 03/18/22 Unknown History subcutaneous pen injector (Trulicity) glipizide 10 mg tablet, extended 10 mg PO DAILY 06/11/21 04/08/22 Unknown History release 24 hr metformin 1,000 mg tablet 1,000 mg PO BID 06/11/21 04/08/22 Unknown History magnesium oxide 400 mg (241.3 mg 400 mg PO BEDTIME PRN as directed 09/28/21 04/08/22 Unknown History magnesium) tablet atorvastatin 80 mg tablet 80 mg PO DAILY 03/18/22 04/08/22 Unknown History dulaglutide 4.5 mg/0.5 mL 4.5 mg subcut QWEEK 04/05/22 Unknown History subcutaneous pen injector (Trulicity) Exam Height,Weight and Vital Signs: Height 5 ft 5 in Weight 66.678 kg Vital Signs Temp Pulse Resp BP Pulse Ox O2 Del Method 04/14/22 07:27 96.6 F L 84 16 123/63 99 Room Air Airway Mallampati Class: II TM Dist: >3cm Neck ROM: Full Partial: Upper Loose/Missing/Broken Teeth: No (Denies broken or loose teeth ) Heart: RRR Lungs: CTAB Assessment and Plan Assessment Anesthesia Assessment: Anesthesia Plan Discussed Final Anesthetic Review Family History of Problems with Anesthesia: No History of Problems with Anesthesia: No NPO: Yes ASA Class: II Final Preanesthetic Review: No Changes in Pt Med Stat, Meds/Allgs Chart Reviewed, Consent Obtained/Reviewed and Anes Risks/Benef Reviewed Patient Risk: Low Procedure Risk: Low Assessment/Block/Sedation in SS: Assess/Block/Sedation-SS Anesthetic Plan Anesthetic Plan: GA and MAC: Disposition: Standard PACU
--- NOTE | ~2022-04-14 | XR_ITS ---
EXAMINATION: XR ABDOMEN KUB CLINICAL INDICATION: Preop COMPARISON: KUB 08/21/2021. Ultrasound 03/22/2022 TECHNIQUE: AP view of the abdomen. FINDINGS: Nonobstructed abdominal bowel gas pattern. Degenerative changes of the lower lumbar spine. Punctate 2 mm right lower pole renal calculus. XR/XR KUB IMPRESSION: Punctate 2 mm right lower pole renal calculus again seen.
[2022-04-14 07:13] VITALS: BMI 24.4
[2022-04-14 07:27] VITALS: BP 123/63; PULSE 84; RESP 16; TEMP 35.9; O2SAT 99
[2022-04-14] MEDS: Lactated Ringers 1,000 ML 100 ML IVCONT (07:37)
[2022-04-14] MEDS: Acetaminophen 325 MG TABLET 650 MG PO (07:40)
[2022-04-14 07:42] LABS: Glucose, Whole Blood 181 mg/dL (60-115)
--- NOTE | 2022-04-14 09:02 | MHC.SHP ---
Pre-Procedural Eval Section A Date of Service: 04/14/22 The patient is an INPATIENT: No Changes since office visit: No Cold of Flu in the past 2 weeks, No New Medical Problems, No Changes in Medication and No Patient answered all questions The History & Physical has been completed within 30 days and I have reviewed it.: Yes Section B Chief Complaint: Calculus of kidney Details of Present Illness: right renal stone Relevant Family History (Specify if Yes): No Relevant Social History: None Present Medications: see Short Stay Collaborative assessment Medical History: No relevant PMH History of Previous Operations: No relevant previous surgery Allergies: Allergies Allergy/AdvReac Type Severity Reaction Status Date / Time aspirin [ASPIRIN] Allergy Severe REDNESS/SWELLING, Verified 03/18/22 07:55 facial swelling SEAFOOD Allergy Severe REDNESS/SWE Uncoded 03/18/22 07:55 LLING Review of Systems Sugical H&P ROS: Negative: Constitution, Cardiovascular, Respiratory, Neurological, Psychiatric, Hem-Onc, Allergic/Immunologic, Gastrointestinal, Genitourinary, Musculoskeletal, Integumentary, Endocrine and Eyes/Ears/Nose/Throat Exam Surgical H&P Exam: Normal: HEENT, Normal: Heart, Normal: Lungs, Normal: Extremities, Normal: Abdomen, Normal: Skin and Normal: Neurological Plan Diagnosis/Plan: Unchanged (8mm right renal stone) I have reviewed the history and physical and performed a pertinent physical examination on my patient. No changes have occurred unless specified.
[2022-04-14 09:47] VITALS: BP 118/77; PULSE 70; RESP 14; TEMP 36.2; O2SAT 96
[2022-04-14 10:02] VITALS: BP 115/70; PULSE 61; RESP 16; O2SAT 99
[2022-04-14 10:15] VITALS: BP 118/69; PULSE 63; RESP 16; O2SAT 99
[2022-04-14 10:31] VITALS: BP 113/71; PULSE 68; RESP 16; TEMP 36.3; O2SAT 99
--- NOTE | 2022-09-15 08:54 | W.PM.OPN ---
Operative Note Operative Note Date of Service: 04/14/22 Narrative: PreOperative Diagnosis: right Renal stones Post Operative Diagnosis: right Renal stones Procedure: right ESWL Surgeon: Dr Remington Reeves Anesthesia: mac/sedation Indications for procedure: The patient understands ESWL may be a staged procedure and subsequent intervention may be required based on imaging after ESWL. Quoted stone clearance rates for a solitary procedure are in the 70-80% range based primarily on stone location. They also understand there is a risk of bleeding to the kidney, infection, damage to adjacent organs, and stone migration following the procedure. - Imaging right 8mm renal stone Procedure: After informed consent was verified the patient was brought to the operating room and placed in a supine position. Anesthesia was performed per protocol. Safety pause time-out was performed. Imaging was displayed in the room and laterality confirmed. ESWL was performed. The 1st 500 shocks were performed at 60 hertz. These were performed with increasing power. Once maximum power was reached the rate was increased to 180 hertz. A total of 2500 shocks were given. Targeted imaging with ultrasound/fluoroscopy showed stone smudging suggestive of disintegration. The patient tolerated the procedure well and was transferred to the recovery area upon completion. Post procedure imaging will be organized. There was no evidence for flank discoloration.
--- NOTE | 2022-09-16 15:01 | W.PM.OPN ---
Operative Note Operative Note Date of Service: 04/14/22 Narrative: PreOperative Diagnosis: Right Renal stones Post Operative Diagnosis: Right Renal stones Procedure: Right ESWL Surgeon: Dr Remington Reeves Anesthesia: mac/sedation Indications for procedure: The patient understands ESWL may be a staged procedure and subsequent intervention may be required based on imaging after ESWL. Quoted stone clearance rates for a solitary procedure are in the 70-80% range based primarily on stone location. They also understand there is a risk of bleeding to the kidney, infection, damage to adjacent organs, and stone migration following the procedure. - Imaging KUB right renal 8 mm stone Procedure: After informed consent was verified the patient was brought to the operating room and placed in a supine position. Anesthesia was performed per protocol. Safety pause time-out was performed. Imaging was displayed in the room and laterality confirmed. ESWL was performed. The 1st 500 shocks were performed at 60 hertz. These were performed with increasing power. Once maximum power was reached the rate was increased to 180 hertz. A total of 2500 shocks were given. Targeted imaging with ultrasound/fluoroscopy showed stone smudging suggestive of disintegration. The patient tolerated the procedure well and was transferred to the recovery area upon completion. Post procedure imaging will be organized. There was no evidence for flank discoloration.
== END 2022-04-14 11:23 | disposition home or self-care (01) ==
PROVIDERS: PCP Internal Medicine; Visit Provider Urology
PROC: (CPT 50590; principal; 2022-04-14 08:30)
DX: N20.0 Calculus of kidney (principal); E11.9 Type 2 diabetes mellitus without complications; J45.909 Unspecified asthma, uncomplicated; Z79.84 Long term (current) use of oral hypoglycemic drugs; Z79.899 Other long term (current) drug therapy; Z88.6 Allergy status to analgesic agent
CPT/HCPCS: 50590; 74018; 82947; J2250; J3010

== ENCOUNTER 2022-05-14 13:04 | Outpatient (REF) | payer OTHER, SELFPAY ==
--- NOTE | ~2022-05-14 | US_ITS ---
EXAMINATION: US RETROPERITONEAL LIMITED (RENAL ONLY) CLINICAL INFORMATION: Calculus of kidney. COMPARISON: Renal ultrasound 03/22/2022 TECHNIQUE: Real-time imaging of the kidneys. FINDINGS: RIGHT KIDNEY: 12.5 x 4.9 x 4.8 cm (SAG x AP x TRV). The kidney is normal in size, contour, and echogenicity. Renal cortical thickness is normal. No calculi or focal parenchymal lesions. No hydronephrosis. Few tiny punctate echogenic foci seen throughout the kidney without shadowing or twinkle likely vascular reflectors prominent renal sinus fat. A previously seen right renal stone is not identified. LEFT KIDNEY: 12.3 x 5.8 x 4.7 cm (SAG x AP x TRV). The kidney is normal in size, contour, and echogenicity. Renal cortical thickness is normal. No focal parenchymal lesions or hydronephrosis. 4 mm upper pole renal stone, 5 mm upper pole renal stone and a 5 mm midpole renal stone, new from prior. Few additional tiny punctate echogenic foci seen throughout the kidney without shadowing or twinkle likely vascular reflectors prominent renal sinus fat. Partially imaged liver appears echogenic. US/US renal BI IMPRESSION: Several nonobstructing left renal stones measuring up to 5 mm, new from prior. A previously seen right renal stone was not identified sonographically. Partially imaged liver appears echogenic suggestive of hepatic steatosis or underlying liver disease. This could be further characterized with a dedicated right upper quadrant ultrasound if clinically indicated..
== END 2022-05-14 13:05 | disposition home or self-care (01) ==
LOC: HO.US 13:04
PROVIDERS: PCP Internal Medicine; Visit Provider Urology
DX: N20.0 Calculus of kidney (principal)
CPT/HCPCS: 76775

== ENCOUNTER → 2022-05-27 13:04 | Outpatient (BNVA) | payer OTHER, SELFPAY | PROVIDERS: PCP Internal Medicine; Visit Provider Urology | DX: Z13.89 Encounter for screening for other disorder (principal) ==

== ENCOUNTER 2022-07-03 07:38 | Outpatient (REF) | payer OTHER, SELFPAY ==
[2022-07-03 09:26] LABS: Estimated Average Glucose 192 mg/dL; Hemoglobin A1c % 8.3 %
[2022-07-03 09:39] LABS: Alanine Aminotransferase 47 U/L (0-31); Albumin Level 4.5 g/dL (3.5-5.0); Alkaline Phosphatase 94 U/L (39-117); Anion Gap 15 (12-20); Aspartate Amino Transferase 22 U/L (5-31); Bilirubin Total 0.8 mg/dL (0.0-1.0); Blood Urea Nitrogen 13 mg/dL (9-16); Calcium 10.3 mg/dL (8.4-10.2); Carbon Dioxide 31 mmol/L (22-29); Chloride 101 mmol/L (96-108); Cholesterol 177 mg/dL; Estimated Glomerular Filt Rate > 60; Glucose Random 236 mg/dL (60-115); HDL Cholesterol 41 mg/dL; LDL Cholesterol Calculated 102 mg/dl; Potassium 5.7 mmol/L (3.3-5.1); Sodium 141 mmol/L (135-145); Total Protein 7.6 g/dL (6.5-8.0); Triglycerides 172 mg/dL
[2022-07-03 09:54] LABS: T4 Thyroxine 6.6 ug/dL (4.5-12.0); Thyroid Stimulating Hormone 0.39 uIU/mL (0.32-4.0)
[2022-07-03 10:13] LABS: Creatinine Urine 170.77 mg/dL; Microalbum/Creatinine Ratio Ur 11.1 ug/mg cr
== END 2022-07-03 07:39 | disposition home or self-care (01) ==
LOC: HO.LABR 07:38
PROVIDERS: PCP Internal Medicine; Visit Provider Internal Medicine Endocrinology, Diabetes & Metabolism
DX: E11.9 Type 2 diabetes mellitus without complications (principal); E05.90 Thyrotoxicosis, unspecified without thyrotoxic crisis or storm
CPT/HCPCS: 36415; 80053; 80061; 82043; 83036; 84436; 84443

== ENCOUNTER → 2022-07-16 07:48 | Outpatient (BNVA) | payer OTHER, SELFPAY | PROVIDERS: PCP Internal Medicine; Visit Provider Nurse Practitioner Family | DX: Z13.89 Encounter for screening for other disorder (principal) ==

== ENCOUNTER 2022-09-20 06:06 | Outpatient (REF) | payer OTHER, SELFPAY ==
[2022-09-20 07:42] LABS: Creatinine Urine 116.54 mg/dL; Microalbum/Creatinine Ratio Ur 6.8 ug/mg cr
[2022-09-20 07:48] LABS: Estimated Average Glucose 212 mg/dL
[2022-09-20 07:51] LABS: Alanine Aminotransferase 35 U/L (0-31); Albumin Level 4.1 g/dL (3.5-5.0); Alkaline Phosphatase 78 U/L (39-117); Anion Gap 11 (12-20); Aspartate Amino Transferase 17 U/L (5-31); Bilirubin Total 0.5 mg/dL (0.0-1.0); Blood Urea Nitrogen 11 mg/dL (9-16); Calcium 9.5 mg/dL (8.4-10.2); Carbon Dioxide 28 mmol/L (22-29); Chloride 104 mmol/L (96-108); Cholesterol 176 mg/dL; Estimated Glomerular Filt Rate > 60; Glucose Random 245 mg/dL (60-115); HDL Cholesterol 39 mg/dL; LDL Cholesterol Calculated 96 mg/dl; Potassium 4.6 mmol/L (3.3-5.1); Sodium 138 mmol/L (135-145); Total Protein 6.9 g/dL (6.5-8.0); Triglycerides 205 mg/dL
[2022-09-20 08:04] LABS: Thyroid Stimulating Hormone 0.45 uIU/mL (0.32-4.0)
== END 2022-09-20 06:07 | disposition home or self-care (01) ==
LOC: HO.LAB 06:06
PROVIDERS: PCP Internal Medicine; Visit Provider Internal Medicine Endocrinology, Diabetes & Metabolism
DX: E11.9 Type 2 diabetes mellitus without complications (principal); E05.90 Thyrotoxicosis, unspecified without thyrotoxic crisis or storm
CPT/HCPCS: 36415; 80053; 80061; 82043; 83036; 84439; 84443

== ENCOUNTER 2022-11-24 13:40 | Outpatient (REF) | payer OTHER, SELFPAY ==
--- NOTE | ~2022-11-24 | US_ITS ---
EXAMINATION: US RETROPERITONEAL LIMITED (RENAL ONLY) CLINICAL INFORMATION: Calculus of kidney. COMPARISON: Ultrasound retroperitoneal limited (renal only) 05/14/2022. X-ray abdomen KUB 04/14/2022. Ultrasound retroperitoneal limited (renal only) 03/22/2022. X-ray abdomen KUB 08/21/2021. CT abdomen and pelvis without contrast 06/26/2020. TECHNIQUE: Real-time imaging of the kidneys. FINDINGS: RIGHT KIDNEY: 14.8 x 7.1 x 5.8 cm (SAG x AP x TRV). The kidney is normal in size, contour, and echogenicity. Renal cortical thickness is normal. No calculi or focal parenchymal lesions. No hydronephrosis. LEFT KIDNEY: 13.2 x 6.6 x 5.2 cm (SAG x AP x TRV). The kidney is normal in size, contour, and echogenicity. Renal cortical thickness is normal. No calculi or focal parenchymal lesions. No hydronephrosis. A dromedary hump is noted, a normal variant. US/US renal BI IMPRESSION: Normal renal ultrasound.
== END 2022-11-24 13:41 | disposition home or self-care (01) ==
LOC: HO.US 13:40
PROVIDERS: PCP Internal Medicine; Visit Provider Urology
DX: N20.0 Calculus of kidney (principal)
CPT/HCPCS: 76775

== ENCOUNTER 2022-12-01 12:57 | Outpatient (AMB) | payer OTHER, SELFPAY ==
--- NOTE | 2022-12-01 13:39 | MHC.OFFVIS ---
Intake Intake Visit Reasons: 6M US(set) Intake Note: Patient is present for Follow Up Urology Med: Vitamin B6 Antibiotic Allergy: None Blood Thinner: None Allergies aspirin [ASPIRIN] Allergy (Severe, Verified 12/01/22 13:42) REDNESS/SWELLING, facial swelling SEAFOOD Allergy (Severe, Uncoded 12/01/22 13:42) REDNESS/SWELLING Medication List - Last Reconciled 12/01/22 by Remington Reeves MD amitriptyline 10 mg PO DAILY 30 days atorvastatin 80 mg PO DAILY [id number] 50-300-40 mg 1 cap PO Q4H PRN 30 days cyclobenzaprine 5 - 10 mg (1 - 2 x 5 mg) PO BEDTIME PRN 30 days dulaglutide (Trulicity) 4.5 mg subcut QWEEK glipizide ER 10 mg PO DAILY lisinopril 2.5 mg PO DAILY magnesium oxide 400 mg PO BEDTIME PRN metformin 1,000 mg PO BID potassium citrate ER 10 mEq PO BID 90 days pyridoxine (vitamin B6) 50 mg PO DAILY 90 days sumatriptan succinate 50 - 100 mg (0.5 - 1 x 100 mg) PO Q2H PRN 2 doses HPI HPI Comments History of Present Illness Details Katerina is a very pleasant female. She is a patient of Dr. Lazo. She is seen for the following urologic conditions - nephrolithiasis No stone seen on ultrasound Continue good response potassium citrate 50 mg vitamin B6 12 month follow-up Nephrolithiasis They are here for - for the evaluation for nephrolithiasis - background diabetes HbA1c 6.7 Urolithiasis was diagnosed - June 2019 The patient previously had kidney stones whose composition w - unknown Laboratory investigations include - no recent labs 24 Hour urine evaluation - none on file Prior treatment(s) include - 04/29 right ESWL Prior imaging includes - June 2019 CT stone protocol. Distal right ureteric stone 5 mm the ureterovesical junction. Mild hydronephrosis. Creatinine normal - 06/29 CT scan right distal ureteric stone - 08/28 renal ultrasound and KUB with right lower pole 6 mm stone - 03/30 renal ultrasound right renal stone 6 mm - 05/31 renal ultrasound no stone on right, left small fragments - 11/28 renal ultrasound no evidence of stones UA today shows - none Associated conditions include diabetes Current therapeutic plan will be - fluids, vitamin B6, potassium citrate PFSH Medical History Acid reflux Asthma Diabetes Elevated cholesterol Kidney stones Migraine Thyroid disease Surgical History Hx of section Family History Father Diabetes Mother Diabetes Family/Other Throat cancer Family/Other Blood clots in brain Social History Household Members: Spouse and Children Housing: Apartment Alcohol intake: former Patient Tobacco Use Status: Never used Tobacco Review of Systems Const Denies chills and Denies fever(s) Card Reports no additional complaints and Denies syncope Resp Denies cough GI Denies abdominal pain and Denies heartburn Reports as per HPI and Denies change in libido Neuro Denies syncope Psych Denies change in libido Endo Denies change in libido Physical Exam Const General: cooperative, healthy appearing, comfortable and no acute distress Orientation/consciousness: patient oriented x3 HEENT Face and sinus: Yes normal facial exam Mouth: moist mucous membranes Neck Neck: Yes normal visual inspection, Yes full ROM and Yes trachea midline Chest Chest palpation & inspection: normal inspection of the chest Resp Effort & Inspection: normal respiratory effort, able to speak in complete sentences and no respiratory distress GI Inspection: Yes normal to inspection Back/Spine/Pelvis Cervical Spine: normal cervical lordosis Thoracic/Lumbar Spine: thoracic and lumbar spine normal to inspection Skin General skin exam: no rashes or lesions noted Neuro General: patient oriented x3, gait normal, tone normal and moves all extremities Extrem General: Yes normal to inspection and Yes capillary refill normal Assessment & Plan Assessment & Plan (1) Nephrolithiasis: Code(s): N20.0 - Calculus of kidney Plan Twelve month follow-up imaging Orders: Orders US renal BI 364 Days N20.0 - Calculus of kidney Patient Instructions: Imaging studies, laboratory and physical exam results were discussed and reviewed in detail. No major barriers to patient understanding were identified. An opportunity to ask questions regarding the treatment plan was provided. All questions were answered. The patient expressed understanding and agreement with the above treatment plan. The patient is aware they should contact our office by phone for worsening of their current condition or the appearance of new urologic symptoms. Compliance is encouraged with any medications and followup testing that is ordered. It is a privilege to participate in the urologic care of your patient. If you have any questions or concerns regarding treatment for the above conditions, or other urologic issues, please do not hesitate to contact me. The office telephone contact is [phone]. This note is constructed using voice recognition software. While every effort has been made to ensure accuracy cushion worker errors may have been included. Yours sincerely, Dr Remington Reeves MD, [facility] - Urology Providers of Expert, Compassionate Care for the Genitourinary System Coding Level of Care Code Est Pt Level 3 (85368) Diagnoses Nephrolithiasis N20.0
== END 2022-12-01 14:28 | disposition home or self-care (01) ==
PROVIDERS: Visit Provider Urology
DX: N20.0 Calculus of kidney (principal)
CPT/HCPCS: 99213

== ENCOUNTER → 2022-12-01 12:57 | Outpatient (BNVA) | payer OTHER, SELFPAY | PROVIDERS: Visit Provider Urology ==

== ENCOUNTER 2023-01-17 07:43 | Outpatient (AMB) | payer OTHER, SELFPAY ==
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
[2023-01-17 07:57] VITALS: BP 112/78; PULSE 79; O2SAT 98
== END 2023-01-17 08:23 | disposition home or self-care (01) ==
PROVIDERS: Visit Provider Nurse Practitioner Family
DX: Z04.2 Encounter for examination and observation following work accident (principal); F07.81 Postconcussional syndrome; G44.309 Post-traumatic headache, unspecified, not intractable
CPT/HCPCS: 99213

== ENCOUNTER → 2023-01-17 07:43 | Outpatient (BNVA) | payer OTHER, SELFPAY | PROVIDERS: Visit Provider Nurse Practitioner Family ==

== ENCOUNTER 2023-02-19 08:06 | Outpatient (REF) | payer OTHER, SELFPAY ==
[2023-02-19 09:44] LABS: Alanine Aminotransferase 39 U/L (0-31); Albumin Level 4.4 g/dL (3.5-5.0); Alkaline Phosphatase 78 U/L (39-117); Anion Gap 15 (12-20); Aspartate Amino Transferase 20 U/L (5-31); Bilirubin Total 0.5 mg/dL (0.0-1.0); Blood Urea Nitrogen 12 mg/dL (9-16); Calcium 9.7 mg/dL (8.4-10.2); Carbon Dioxide 27 mmol/L (22-29); Chloride 105 mmol/L (96-108); Cholesterol 150 mg/dL (<200); Estimated Glomerular Filt Rate > 60; Glucose Random 185 mg/dL (60-115); HDL Cholesterol 44 mg/dL (>40); LDL Cholesterol Calculated 83 mg/dL (<100); Potassium 4.6 mmol/L (3.3-5.1); Sodium 142 mmol/L (135-145); Total Protein 7.5 g/dL (6.5-8.0); Triglycerides 117 mg/dL (<150)
[2023-02-19 09:51] LABS: Thyroid Stimulating Hormone 0.33 uIU/mL (0.32-4.0)
[2023-02-19 10:08] LABS: Estimated Average Glucose 160 mg/dL; Hemoglobin A1c % 7.2 % (<6.0)
[2023-02-19 10:20] LABS: Creatinine Urine 65.37 mg/dL; Microalbumin Urine < 5.0 mg/L
== END 2023-02-19 08:07 | disposition home or self-care (01) ==
LOC: HO.LABR 08:06
PROVIDERS: Absent Provider Internal Medicine; PCP Internal Medicine; Visit Provider Internal Medicine Endocrinology, Diabetes & Metabolism
DX: E05.90 Thyrotoxicosis, unspecified without thyrotoxic crisis or storm (principal); E11.9 Type 2 diabetes mellitus without complications
CPT/HCPCS: 36415; 80053; 80061; 82043; 82570; 83036; 84439; 84443

== ENCOUNTER 2023-02-25 14:43 | Outpatient (REF) | payer OTHER, SELFPAY | END 2023-02-25 14:44 | disposition home or self-care (01) | LOC: HO.MAMMO 14:43 | PROVIDERS: PCP Internal Medicine; Visit Provider Internal Medicine | DX: Z12.31 Encounter for screening mammogram for malignant neoplasm of breast (principal) | CPT/HCPCS: 77063; 77067 ==

== ENCOUNTER → 2023-02-25 15:00 | Outpatient (BNV) | payer OTHER, SELFPAY | PROVIDERS: PCP Internal Medicine; Visit Provider Radiology Diagnostic Radiology | DX: Z12.31 Encounter for screening mammogram for malignant neoplasm of breast (principal) | CPT/HCPCS: 77063; 77067 ==

== ENCOUNTER 2023-03-26 06:54 | Outpatient (REF) | payer OTHER, SELFPAY ==
--- NOTE | ~2023-03-26 | XR_ITS ---
EXAMINATION: XR LUMBOSACRAL SPINE WITH OBLIQUES CLINICAL INFORMATION: Low back pain radiating to right leg. COMPARISON: Radiograph abdomen 04/14/2022. Prior lumbar radiographs cannot be retrieved at this time for comparison. TECHNIQUE: 5 views of the lumbar spine. FINDINGS: Endplate concavities at L1-L3, characteristic of Schmorl's nodes. Similar findings were described in the written report for lumbar spine radiographs of 02/25/2014, however, prior images cannot be retrieved at this time for direct comparison. There are 5 nonrib-bearing lumbar-type vertebral bodies. Moderate degenerative changes in the bilateral sacroiliac joints. Straightening of the normal lumbar lordosis. Facet arthritis in the lower lumbar spine. Multilevel lumbar spondylosis with advanced degenerative changes and loss of disc space height at L5-S1. Moderate anterior loss of height of the L1 vertebral body of indeterminate age. XR/XR lumbar spine 4V min IMPRESSION: Multilevel lumbar spondylosis with advanced degenerative changes at L5-S1.
--- NOTE | ~2023-03-26 | XR_ITS ---
EXAMINATION: XR ELBOW, RIGHT CLINICAL INFORMATION: Right lateral epicondylitis. COMPARISON: None available. TECHNIQUE: AP, lateral, and oblique views of the right elbow. FINDINGS: Mild hypertrophic change along the coronoid process. Alignment preserved. No displaced fracture. Bone mineralization is normal. XR/XR elbow RT 2V IMPRESSION: Mild degenerative changes. No displaced fracture. Recommend follow-up imaging in 10-14 days if fracture is suspected.
== END 2023-03-26 06:55 | disposition home or self-care (01) ==
LOC: HO.XRAY 06:54
PROVIDERS: PCP Internal Medicine; Visit Provider Internal Medicine
DX: M77.11 Lateral epicondylitis, right elbow (principal); M54.50 Low back pain, unspecified; M79.604 Pain in right leg
CPT/HCPCS: 72110; 73070

== ENCOUNTER 2023-04-05 08:59 | Outpatient (AMB) | payer OTHER, SELFPAY ==
[2023-04-05 09:34] VITALS: BMI 24.6
--- NOTE | 2023-04-05 09:34 | A.OFFVIS_ITS ---
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 Intake Note: Katerina 52 yr old female who is right hand dominant presents today as a new patient for her left middle finger. States her finger locks and is painful. States this started about 3-4 months ago and has worsen. Hx of right middle trigger release [address] Spears. States she would like to try an injection first. Also she is having right elbow pain, no injury she can recall. Patient is diabetic and states her last A1C was a 7.1. 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 HPI Details Katerina is a 52 year old right hand dominant woman who presents with complaints of left middle finger locking. She works at a [employer]. She complains of ~4 months painful locking & catching of her left middle finger. She has a hx of right middle finger trigger release in ~2016 with an outside provider. She also complains of several months right lateral elbow pain, which is worse with gripping & lifting activities. No fall or injury that she can recall. She is a Diabetic, her most recent HgA1c was 7.1%. 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 Review of Systems Const All systems reviewed & are unremarkable except as noted in HPI and below Physical Exam Vital Signs: BMI result Body Mass Index 24.6 Const General: cooperative, healthy appearing and no acute distress Orientation/consciousness: patient oriented x3 HEENT Head: Yes normocephalic and Yes atraumatic Eyes EOM: EOMs intact bilaterally Resp Effort & Inspection: normal respiratory effort and able to speak in complete sentences Cardio Jugular venous distension: no JVD Skin General skin exam: turgor normal Rashes: no rashes Neuro General: patient oriented x3 Extrem Other: Evaluation of Left Upper Extremity: The patient is alert, oriented, and in no acute distress Neuro: Median, Ulnar, Radial nerves motor and sensory intact and sensation is normal to the tips of all digits Vascular: Cap refill brisk ROM: She can make a fist and extend all her digits Visible and palpable locking and catching of the middle finger Tender over the a1 obdulia of the middle finger Skin: No lacerations or abrasions. General: No Ecchymosis. No Erythema or evidence of infection. She is tender over the right extensor origin just distal to lateral epicondyle This is worse with resisted wrist extension Full and smooth elbow flexion extension and prono-supination. No tenderness over the olecranon or elbow joint. Radiographs three views of the right elbow had been ordered by an outside provider and were reviewed reviewed by me today in clinic. They show no fractures or dislocations. No appreciable arthritic changes other than perhaps some mild peaking at coronoid process. Psych Appearance: grossly normal Affect: normal affect Attitude: cooperative Office Procedures Fracture Care Details: No fracture, injection Fracture Billing Code: Fracture Billing Code Assessment & Plan Assessment & Plan (1) Trigger finger, left middle finger: Code(s): M65.332 - Trigger finger, left middle finger (2) Right lateral epicondylitis: Code(s): M77.11 - Lateral epicondylitis, right elbow Plan Assessment & Plan: 1. Left middle finger trigger finger I educated her about this condition I discussed operative and non-operative treatment options The patient would like to proceed with an injection Injection #1: The risks and benefits of a steroid injection including but not limited to risk of damage to blood vessels, nerves, tendons, infection, skin bleaching, failure to improve symptoms, increased pain, and possible need for further injections or other intervention were discussed with the patient and the patient wishes to proceed with the steroid injection. Once consent was obtained, I sterilely prepped the area over the A1 obdulia of the flexor tendon sheath of the left middle finger. I then injected the flexor tendon sheath with a combination of 1 mL of dexamethasone (4mg/ml), and 1% lidocaine. The patient tolerated the procedure well with no complications. If the patient continues to have locking and catching 4-6 weeks following this injection, they may call to schedule appointment to discuss alternative treatment options Follow-up prn 2. Right lateral epicondylitis I educated her about this condition I discussed activity modification, she should be mindful to not overuse her arm with activities that are bothersome. I ordered OT hand therapy to work on ROM exercises & stretching She can follow up prn Scribed for Karina Sanchez MD by Paresh Alanis, esthetician and manager medical spa, on 04/05/23 at 9:50 AM, EST. Orders: Orders OT Evaluation and Treatment Today M65.332 - Trigger finger, left middle finger, M77.11 - Lateral epicondylitis, right elbow Coding Level of Care Code New Pt Level 3 (75610) Diagnoses Trigger finger, left middle finger M65.332 Right lateral epicondylitis M77.11 CPT Codes Fracture Care - Fracture Billing Code: Fracture Billing Code ([id number])
== END 2023-04-05 10:16 | disposition home or self-care (01) ==
PROVIDERS: PCP Internal Medicine; Visit Provider Orthopaedic Surgery
DX: M65.332 Trigger finger, left middle finger (principal); M77.11 Lateral epicondylitis, right elbow
CPT/HCPCS: 20550; 99204

== ENCOUNTER → 2023-04-05 08:59 | Outpatient (BNVA) | payer OTHER, SELFPAY | PROVIDERS: PCP Internal Medicine; Visit Provider Orthopaedic Surgery | DX: M65.332 Trigger finger, left middle finger (principal); M77.11 Lateral epicondylitis, right elbow | CPT/HCPCS: 20550; J1100 ==

== ENCOUNTER 2023-04-27 | Outpatient (REF) | payer OTHER, SELFPAY ==
[2023-04-30 08:58] LABS: HPV mRNA E6/E7 rflx Not Detected (Not Detected)
== END 2023-04-27 00:01 ==
LOC: HO.HHCLNP
PROVIDERS: Visit Provider Advanced Practice Midwife
DX: Z12.4 Encounter for screening for malignant neoplasm of cervix (principal); Z11.51 Encounter for screening for human papillomavirus (HPV)
CPT/HCPCS: 87624; 88142

== ENCOUNTER 2023-07-18 14:23 | Outpatient (AMB) | payer OTHER, SELFPAY ==
[2023-07-18 14:27] VITALS: BP 104/78; PULSE 88; O2SAT 97; BMI 25.1
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
== END 2023-07-18 15:12 | disposition left against medical advice (07) ==
PROVIDERS: PCP Internal Medicine; Visit Provider Nurse Practitioner Family
DX: M54.2 Cervicalgia (principal); F07.81 Postconcussional syndrome; G44.309 Post-traumatic headache, unspecified, not intractable; Z04.2 Encounter for examination and observation following work accident
CPT/HCPCS: 99213

== ENCOUNTER → 2023-07-18 14:23 | Outpatient (BNVA) | payer OTHER, SELFPAY | PROVIDERS: PCP Internal Medicine; Visit Provider Nurse Practitioner Family | DX: F07.81 Postconcussional syndrome (principal); G43.009 Migraine without aura, not intractable, without status migrainosus; M54.2 Cervicalgia | CPT/HCPCS: 99212 ==

== ENCOUNTER 2023-08-06 07:11 | Outpatient (REF) | payer OTHER, SELFPAY ==
--- NOTE | ~2023-08-06 | XR_ITS ---
EXAMINATION: XR KNEE, RIGHT CLINICAL INFORMATION: Pain. COMPARISON: Radiographs dated 12/27/2017. TECHNIQUE: AP, lateral, tunnel, and sunrise views of the right knee. FINDINGS: Bony alignment and mineralization are normal. The lateral, medial and patellofemoral joint space compartments are well-maintained. There is mild peripheral osteophyte formation of the lateral and patellofemoral compartments. No fracture or dislocation is seen. There is a small to moderate joint effusion. No foreign body is seen. XR/XR knee RT 3V IMPRESSION: 1. There is mild osteoarthritic change of the lateral and patellofemoral joint space compartments. 2. There is a small right joint effusion. 3. No fracture or dislocation is seen.
--- NOTE | ~2023-08-06 | XR_ITS ---
EXAMINATION: XR SHOULDER, RIGHT CLINICAL INFORMATION: Pain. COMPARISON: Radiographs dated 05/01/2020 TECHNIQUE: AP external rotation, Grashey, scapular Y, and axillary views of the right shoulder. FINDINGS: Bony alignment and mineralization are normal. The glenohumeral joint is intact. The acromioclavicular and coracoclavicular intervals are normal. There is mild osteoarthritic change of the acromioclavicular joint. No fracture or dislocation is seen. There is mild calcific tendinitis of the rotator cuff insertion. No foreign body is seen. There is no right pneumothorax. XR/XR shoulder RT min 2V IMPRESSION: 1. There is mild osteoarthritic change of the right acromioclavicular joint. 2. There is mild calcific tendinitis of the right rotator cuff.
== END 2023-08-06 07:12 | disposition home or self-care (01) ==
LOC: HO.XRAY 07:11
PROVIDERS: PCP Internal Medicine; Visit Provider Internal Medicine
DX: M25.561 Pain in right knee (principal); M25.511 Pain in right shoulder
CPT/HCPCS: 73030; 73562

== ENCOUNTER 2024-03-20 14:32 | Outpatient (REF) | payer OTHER, SELFPAY ==
--- NOTE | ~2024-03-20 | MM_ITS ---
EXAMINATION: MM SCREENING DIGITAL BREAST TOMOSYNTHESIS, BILATERAL CLINICAL INFORMATION: Screening. Asymptomatic. COMPARISON: Mammography: Comparison is made with available priors TECHNIQUE: Digital breast mammography with tomosynthesis is performed in both the craniocaudal and mediolateral oblique views along with computer-aided detection (CAD). FINDINGS: The breasts are heterogeneously dense, which may obscure small masses (ACR BI-RADS breast composition Category c). There are no significant masses, abnormal calcifications, or other abnormalities. MM/MM tomosynthesis screening BI IMPRESSION: No mammographic evidence of malignancy. ASSESSMENT: BI-RADS BI-RADS 1 - Negative RECOMMENDATION: Routine annual mammography screening. 1 year F/U This examination should not preclude the clinical evaluation of a suspicious palpable abnormality. This patient's information was entered into a reminder system with a target due date for their next mammogram. Electronically signed by: Lynette Lopez DO 03/28/2024 03:58 PM [place]
== END 2024-03-20 14:33 | disposition home or self-care (01) ==
LOC: HO.MAMMO 14:32
PROVIDERS: Visit Provider Internal Medicine
DX: Z12.31 Encounter for screening mammogram for malignant neoplasm of breast (principal)
CPT/HCPCS: 77063; 77067

== ENCOUNTER → 2024-03-20 15:00 | Outpatient (BNV) | payer OTHER, SELFPAY | PROVIDERS: Visit Provider Internal Medicine | DX: Z12.31 Encounter for screening mammogram for malignant neoplasm of breast (principal) | CPT/HCPCS: 77063; 77067 ==

== ENCOUNTER 2024-11-15 14:07 | Outpatient (REF) | payer OTHER, SELFPAY ==
--- NOTE | ~2024-11-15 | US_ITS ---
EXAMINATION: US EXTREMITY, NONVASCULAR CLINICAL INFORMATION: Palpable mass popliteal fossa,? Baptiste's cyst. COMPARISON: None available. TECHNIQUE: Grayscale and color Doppler ultrasound imaging of the right popliteal fossa was performed in the region of palpable lump. FINDINGS: There is a Baptiste's cyst the medial right popliteal fossa, measuring 5.4 x 1.8 x 4.2 cm. Incidental note made of a joint effusion within the right knee joint. US/US Extremity Nonvas Limited RT IMPRESSION: 1. Baptiste's cyst medial right popliteal fossa. 2. Right knee joint effusion. Electronically signed by: El Olmstead MD 11/15/2024 03:29 PM EDT
--- OUTSIDE RECORDS SUMMARY | 2024-11-15 10:30 | XMS_ITS | Encounter Summary ---
Author Organization [employer] Address [address] [place] [address] [address] [address] Care Team Providers Care Utility Tech Name Role Phone Olman Holguin MD Primary Care Provide r Reason for Referral * Consultation (Urgent) - Pending Review Specialty Diagnoses / Procedures Referred By Contac t Referred To Contact Orthopaedic Surgery Diagnoses Chronic pain of right knee Posterior right knee pain Olman Holguin MD [address] [place] [address] Phone: tel: fax: Referral ID Status Reason Start Date Expiration Date Visits Requested Visits Authorized [id number] Pending Review Specialty Services Required 11/15/2024 11/15/2025 1 1 * Imaging (Routine) - Authorized Specialty Diagnoses / Procedures Referred By Contac t Referred To Contact Radiology Diagnoses Posterior right knee pain Procedures US EXTREMITY LIMITED SOFT TISSUE Olman Holguin MD [address] [place] [address] Phone: tel: fax: [address] Phone: tel: fax: Referral ID Status Reason Start Date Expiration Date V isits Requested Visits Authorized [id number] Authorized 11/15/2024 11/15/2025 1 1 * Consultation (Routine) - Pending Review Specialty Diagnoses / Procedures Referred By Tila biswas Referred To Contact General Surgery Diagnoses Preventative health care Olman Holguin MD [address] [place] [address] Phone: tel: fax: Chapo Garcia MD [address] [place] [address] [place] [address] Phone: tel: fax: Referral ID Status Reason Start Date Expiration Date Visits Requested Visits Authorized Pending Review Specialty Services Required 11/15/2024 11/15/2025 1 1 Reason for Visit * Reason Comments Diabetes Knee Pain Pt is interested in cortisol injections for pain Encounter Details Date Type Department Care Team (Latest Contact Info) Description 11/15/2024 10:30 AM EDT Office Visit [facility] [address] [place], [place] [phone] Olman Holguin MD [address] [place], [place] [phone] Mixed hyperlipidemia (Primary Dx); Type 2 diabetes mellitus without complication, without long-term current use of insulin ([facility]); Rash; Preventative health care; Mild intermittent asthma without complication; Chronic pain of right knee; Posterior right knee pain Social History Tobacco Use Types Packs/Day Years Used Date Smoking Tobacco: Never Passive Smoke Exposure: Never Smokeless Tobacco: Never Alcohol Use Standard Drinks/Week Comments Not Currently 0 (1 standard drink = 0.6 oz pur e alcohol) Depression Answer Date Recorded Patient Health Questionnaire-9 Score 0 11/15/2024 Patient Health Questionnaire-9 Score 0 11/15/2024 Last PHQ-9: Questionnaire Data Not on file 0 11/15/2024 Housing Stability Answer Date Recorded What is your housing situation today? I have yong sing 08/02/[address] you li ve. Do you have problems with any of the following? None of the above 08/02/2023 Food Insecurity Answer Date Recorded Within the past 12 months, y ou worried that your food would run out before you got money to buy more: Never True 08/02/2023 Within the past 12 months,th e food you bought just didn't last and you didn't have enough money to get more: Never True Transportation Answer Date Recorded In the past 12 months, has l ack of transportation kept you from medical appts, meetings, work or from getting things needed for daily living? No 08/02/2023 Utilities Answer Date Recorded In the past 12 months, has t he electric, gas, oil or water company threatened to shut off services in your home? No 08/02/2023 Depression Answer Date Recorded Patient Health Questionnaire-2 Score 0 11/15/2024 Comments No Sex and Gender Information Value Date Recorded Sex Assigned at Female 03/08/2022 10:15 AM EDT Legal Sex Female 10:15 AM EDT Gender Identity Female 03/08/2022 10:15 AM EDT Sexual Orientation Straight 03/08/2022 10 :15 AM EDT documented as of this encounter Last Filed Vital Signs Vital Sign Reading Time Taken Comments Blood Pressure 104/72 11/15/2024 10:43 AM EDT Pulse 72 11/15/2024 10:43 AM EDT Temperature 36.3 C (97.3 F) 11/15/2024 10:43 AM EDT Respiratory Rate 20 11/15/2024 10:43 AM EDT Oxygen Saturation 98% 11/15/2024 10:43 AM EDT Inhaled Oxygen Concentration - - Weight 65 kg (143 lb 6.4 oz) 11/15/2024 10:43 AM EDT Height 165.1 cm (5' 5 ) 11/15/2024 10:43 AM EDT Body Mass Index 23.86 11/15/2024 10:43 AM EDT documented in this encounter Functional Status * Over the past 2 weeks, how often have you been bothered by any of the following problems? Question Answer Date of Assessment Author Patient Health Questionnaire-2 Score 0 11/06 10:40 AM EDT Zoila Hanna MA * Little interest or pleasure in doing things Answer Date of Assessment Author Not at all 11/15/2024 10:40 AM EDT Zoila Hanna MA * Feeling down, depressed, or hopeless Answer Date of Assessment Author Not at all 11/15/2024 10:40 AM EDT Zoila Hanna MA * Trouble falling or staying asleep, or sleeping too much Answer Date of Assessment Author Not at all 11/15/2024 10:40 AM EDT Zoila Hanna MA * Feeling tired or having little energy Answer Date of Assessment Author Not at all 11/15/2024 10:40 AM EDT Zoila Hanna MA * Poor appetite or overeating Answer Date of Assessment Author Not at all 11/15/2024 10:40 AM EDT Zoila Hanna MA * Feeling bad about yourself - or that you are a failure or have let yourself or your family down Answer Date of Assessment Author Not at all 11/15/2024 10:40 AM EDT Zoila Hanna MA * Trouble concentrating on things, such as reading the newspaper or watching television Answer Date of Assessment Author Not at all 11/15/2024 10:40 AM EDT Zoila Hanna MA * Moving or speaking so slowly that other people could have noticed? Or the opposite - being so fidgety or restless that you have been moving around a lot more than usual. Answer Date of Assessment Author Not at all 11/15/2024 10:40 AM Zoila Dubon MA * Thoughts that you would be better off or hurting yourself in some way Answer Date of Assessment Author Not at all 11/15/2024 10:40 AM Zoila Dubon MA * Patient Health Questionnaire-9 Score Answer Date of Assessment Author 0 11/15/2024 10:40 AM Zoila Dubon MA * Over the last 2 weeks, how often have you been bothered by any of the following problems? Question Answer Date of Assessment Author Feeling nervous, anxious, or on edge 0 11/06 10:40 AM Zoila Dubon MA Not being able to stop or co ntrol worrying 0 11/15/2024 10:40 AM CHONGT Zoila Hanna MA Worrying too much about diff erent things 0 11/15/2024 10:40 AM EDT Zoila Hanna MA Trouble relaxing 0 11/15/2024 10:40 AM EDT CyndiZoila ERI Being so restless that it is hard to sit still 0 11/15/2024 10:40 AM EDT Zoila Hanna ERI Becoming easily annoyed or irritable 0 11/06 10:40 AM EDT Zoila Hanna ERI Feeling afraid as if somethi ng awful might happen 0 11/15/2024 10:40 AM EDT Zoila Hanna ERI ARTEM-7 Total Score 0 11/15/2024 10:40 AM EDT CyndiZoila ERI documented as of this encounter Progress Notes * Olman Lock MD - 11/15/2024 10:30 AM EDT SUBJECTIVE Katerina Clifton is a 54 y.o. female who presents for Diabetes and Knee Pain (Pt is interested in cortisol injections for pain ). Diabetes She presents for her follow-up diabetic visit. She has type 2 diabetes mellitus. Pertinent negatives for hypoglycemia include no headaches. Pertinent negatives for diabetes include no chest pain. Knee Pain Hyperlipidemia This is a chronic problem. Pertinent negatives include no chest pain or shortness of breath. Review of Systems Constitutional: Negative for fever. HENT: Negative for sore throat. Respiratory: Negative for cough and shortness of breath. Cardiovascular: Negative for chest pain. Gastrointestinal: Negative for abdominal pain. Neurological: Negative for headaches. Allergies[1] OBJECTIVE Vitals: 11/15/24 1043 BP: 104/72 BP Location: Left arm Patient Position: Sitting BP Cuff Size: Adult Pulse: 72 Resp: 20 Temp: 97.3 ??F (36.3 ??C) TempSrc: Temporal SpO2: 98% Weight: 143 lb 6.4 oz (65 kg) Height: 5' 5 (1.651 m) Physical Exam Vitals reviewed. Constitutional: Appearance: Normal appearance. HENT: Head: Normocephalic and atraumatic. Right Ear: External ear normal. Left Ear: External ear normal. Nose: Nose normal. Mouth/Throat: Mouth: Mucous membranes are moist. Eyes: Conjunctiva/sclera: Conjunctivae normal. Cardiovascular: Rate and Rhythm: Normal rate and regular rhythm. Pulmonary: Effort: Pulmonary effort is normal. Breath sounds: Normal breath sounds. Musculoskeletal: Comments: Right posterior knee palpable mass 3 x 4 cm approx no redness, no tenderness, no warmth Skin: General: Skin is warm. Neurological: Mental Status: She is alert. Mental status is at baseline. Assessment/Plan Problem List Items Addressed This Visit Type 2 diabetes mellitus (CMS/HCC) Patient is here for a follow up in terms of her DM DM : She is on a regimen of: Metformin 1000 mg po BID, Glipizide XR 5 mg po daily, and Trulicity 4.5 q week, (off Lantus (per Dr Bravo) Hgb A1c on 11/15/2024: 8.7 from 10.3 from 10.9 Pt continues under the care of Endocrinology Dr. Bravo, last seen 02/2024, has a f/u in 02/2025 also encouraged her to adhere to a diabetic diet and exercise Eye exam was last done on: 09/[address] 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 Foot check risk of zero Pt reports compliance with Asa 81 mg po daily Pt advised to: adhere to diabetic diet check your blood sugars regularly check your feet on a daily basis Plan: Continue current regimen f/u 4 months Relevant Medications Dulaglutide (Trulicity) 4.5 MG/0.5ML solution auto-injector lisinopril 2.5 MG tablet metFORMIN (Glucophage) 1000 MG tablet Other Relevant Orders POCT Glucose (Completed) POCT HGB A1C (Completed) Mixed hyperlipidemia - Primary Patient here for a follow up Pt with elevated lipids. Most recent lipid profile from: Lab Results Component Value Date TRIG 205 09/20/2022 TRIG 172 07/03/2022 CHOL 176 09/20/2022 CHOL 177 07/03/2022 LDLCHOLCAL 96 09/20/2022 LDLCHOLCAL 102 07/03/2022 HDL 39 09/20/2022 HDL 41 07/03/2022 Currently on a regimen of: Atorvastatin 80mg po qhs. Continue current regimen for now. Repeat Lipid profile Relevant Medications Dulaglutide (Trulicity) 4.5 MG/0.5ML solution auto-injector metFORMIN (Glucophage) 1000 MG tablet Other Relevant Orders Lipid Panel, Standard Rash Patient with c/o new onset of pruritic rash left lower abdominal region x 1 month Exam suggestive of atopic dermatitis Seen by Dr Combs [facility] care Mammogram: 03/20/2024 NL Pap Smear: 04/27/2023 Negative Colonoscopy: 05/01/2019 showed hemorrhoids, 5 yr f/u recommended due to poor prep Dr Nunez Will refer back Relevant Orders Referral to General Surgery Asthma Here for a follow up No recent exacerbation Relevant Medications loratadine (Claritin) 10 MG tablet Chronic pain of right knee Patient here with c/o right knee pain On today's exam,there is a new palpable mass posterior right knee fluctuant , no redness, no warmth Previous plain films showed: There is mild osteoarthritic change of the lateral and patellofemoral joint space compartments. There is a small right joint effusion. No fracture or dislocation is seen.Previous visit pt was sent for PT eval, pt tells me she completed it Etiology. Exam seems suggestive of large brown's cyst Plan: Right Lower extremity US/ Doppler Ortho evaluation, might need drainage given the size Relevant Orders Referral to Orthopaedic Surgery Other Visit Diagnoses Posterior right knee pain Relevant Orders US EXTREMITY LIMITED SOFT TISSUE Referral to Orthopaedic Surgery No future appointments. [1] Allergies Allergen Reactions Nsaids Swelling Other reaction(s): unspecified Seafood [Shellfish Allergy] Aspirin Rash documented in this encounter Miscellaneous Notes * Assessment & Plan Note - Olman Lock MD - 11/15/2024 10:56 AM EDT Associated Problem(s): Chronic pain of right knee Patient here with c/o right knee pain On today's exam,there is a new palpable mass posterior right knee fluctuant , no redness, no warmth Previous plain films showed: There is mild osteoarthritic change of the lateral and patellofemoral joint space compartments. There is a small right joint effusion. No fracture or dislocation is seen.Previous visit pt was sent for PT eval, pt tells me she completed it Etiology. Exam seems suggestive of large brown's cyst Plan: Right Lower extremity US/ Doppler Ortho evaluation, might need drainage given the size * Assessment & Plan Note - Olman Lock MD - 11/15/2024 10:50 AM EDT Associated Problem(s): Asthma Here for a follow up No recent exacerbation * Assessment & Plan Note - Olman Lock MD - 11/15/2024 10:48 AM EDT Associated Problem(s): Preventative health care Mammogram: 03/20/2024 NL Pap Smear: 04/27/2023 Negative Colonoscopy: 05/01/2019 showed hemorrhoids, 5 yr f/u recommended due to poor prep Dr Nunez Will refer back * Assessment & Plan Note - Olman Lock MD - 11/15/2024 10:47 AM EDT Associated Problem(s): Rash Patient with c/o new onset of pruritic rash left lower abdominal region x 1 month Exam suggestive of atopic dermatitis Seen by Dr Combs * Assessment & Plan Note - Olman Lock MD - 11/15/2024 10:47 AM EDT Associated Problem(s): Mixed hyperlipidemia Patient here for a follow up Pt with elevated lipids. Most recent lipid profile from: Lab Results Component Value Date TRIG 205 09/20/2022 TRIG 172 07/03/2022 CHOL 176 09/20/2022 CHOL 177 07/03/2022 LDLCHOLCAL 96 09/20/2022 LDLCHOLCAL 102 07/03/2022 HDL 39 09/20/2022 HDL 41 07/03/2022 Currently on a regimen of: Atorvastatin 80mg po qhs. Continue current regimen for now. Repeat Lipid profile * Assessment & Plan Note - Olman Lock MD - 11/15/2024 10:46 AM EDT Associated Problem(s): Type 2 diabetes mellitus (CMS/HCC) Patient is here for a follow up in terms of her DM DM : She is on a regimen of: Metformin 1000 mg po BID, Glipizide XR 5 mg po daily, and Trulicity 4.5 q week, (off Lantus (per Dr Bravo) Hgb A1c on 11/15/2024: 8.7 from 10.3 from 10.9 Pt continues under the care of Endocrinology Dr. Bravo, last seen 02/2024, has a f/u in 02/2025 also encouraged her to adhere to a diabetic diet and exercise Eye exam was last done on: 09/[address] 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 Foot check risk of zero Pt reports compliance with Asa 81 mg po daily Pt advised to: adhere to diabetic diet check your blood sugars regularly check your feet on a daily basis Plan: Continue current regimen f/u 4 months documented in this encounter Plan of Treatment Scheduled Orders Name Type Priority Associated Diagnoses Orde r Schedule Lipid Panel, Standard Lab Routine Mixed hyperlipidemia Ordered: 11/15/2024 US EXTREMITY LIMITED SOFT TISSUE Imaging Routine Posterior right knee pain Ordered: 11/15/2024 Scheduled Referrals Name Type Priority Associated Diagnoses Order Schedule Referral to General Surgery Outpatient Referral Routine Preventative health care Expected: 11/15/2024 (Approximate), Expires: 11/15/2025 Referral to Orthopaedic Surgery Outpatient Referral Urgent Chronic pain of right knee Posterior right knee pain Expected: 11/15/2024 (Approximate), Expires: 11/15/2025 documented as of this encounter Procedures Procedure Name Priority Date/Time Associated Diagnosis Comments POCT GLYCATED HEMOGLOBIN, TOTAL Routine 11/15/2024 11:00 AM EDT Type 2 diabetes mellitus without complication, without long-term current use of insulin ([facility]) POCT GLUCOSE Routine 11/15/2024 10:50 AM EDT Type 2 diabetes mellitus without complication, without long-term current use of insulin ([facility]) documented in this encounter Results * (ABNORMAL) POCT HGB A1C (11/15/2024 11:00 AM EDT) Hemoglobin A1C 8.7(A) 4.0 - 5.7 % QC Media Lot # [id number] Lot# Expiration Date 3,027 Blood 11/15/2024 11:0 0 AM EDT us Olman Lock MD POINT OF CARE TEST EN TER/EDIT ORDERABLES Final Result * POCT Glucose (11/15/2024 10:50 AM EDT) Glucose Blood, POC 155 60 - 200 mg/dL QC Media Lot # [id number] Lot# Expiration Date ,613 Blood Capillary blood specimen / Unknown 11/15/2024 10:50 AM EDT us Olman Lock MD POINT OF CARE TEST EN TER/EDIT ORDERABLES Final Result documented in this encounter Visit Diagnoses Diagnosis Mixed hyperlipidemia- Primary Type 2 diabetes mellitus without complication, without long-term current use of insulin ([facility]) Rash Rash and other nonspecific skin eruption Preventative health care Routine general medical examination at a health care facility Mild intermittent asthma without complication Chronic pain of right knee Posterior right knee pain documented in this encounter Additional Health Concerns Assessment Noted Time PHQ-9 Depression Total Score: 0 11/16/19 25 10:40 AM EDT documented as of this encounter Care Teams Utility Tech Relationship Specialty Start Date End Date Olman Holguin MD [address] [place] [id number] PCP - General Internal Medicine 8/5/14 documented as of this encounter
--- OUTSIDE RECORDS SUMMARY | 2024-11-15 14:18 | XMS_ITS | Data Portability ---
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 In past, TSH = 0.36 in 09/21 and was 0.55 (11/20)_ was down to 0.3 (07/2013) but has generally been 0.5-0.7. Recent labs, TSH is in low normal range now (07/25 and 04/25) Last few labs showing fT4 towards low end with low TSH. T2DM on metformin/glipiz miguel (decreased in 05/27 by PCP) and Lantus (10) at HS with addition of Trulicity 0.75. A1c better with addition of Trulicity- PCP decreased glip from 20 to 10. Off Lantus with better a1c. check on lab orders- lipids in 3 months. also alpha subunit) [email or web address] Not available 03/22/2019 09:24:19 09/27/2019 09/27/2019 Borderline subclinical hyperthyroidism- In past, had low TSH in setting of normal T4 meets criteria as subclinical hyperthyroidism. In past, TSH = 0.36 in 09/21 and was 0.55 (11/20)_ was down to 0.3 (07/2013) but has generally been 0.5-0.7. Recent labs, TSH is in low normal range now (07/25 and 04/25) Last few labs showing fT4 towards low end with low TSH. *Low TSH with low fT4 raises question of possible secondary problem* T2DM on metformin/glipiz miguel and (originally Lantus 10). With addition of Trulicity 0.75, glipizide decreased and Lantus 10 stopped. Phone visit over 20 minutes [email or web address] Not available 09/27/2019 10:05:48 04/21/2020 04/21/2020 Borderline subclinical hyperthyroidism- better in 2019. In past, had low TSH in setting of normal T4 meets criteria as subclinical hyperthyroidism. In past, TSH = 0.36 in 09/21 and was 0.55 (11/20)_ was down to 0.3 (07/2013) but has generally been 0.5-0.7. Recent labs, TSH is in low normal range now (07/25 and 04/25) Last few labs showing fT4 towards low end with low TSH. *Low TSH with low fT4 raises question of possible secondary problem* T2DM on metformin/glipiz miguel and (originally Lantus 10). 04/27: Now on Trulicity 1.5 (able to decrease glipizide and stop Lantus ). Phone visit over 20 minutes (partial video) [email or web address] Not available 04/27/2020 18:55:20 08/03/2021 08/03/2021 Borderline subclinical hyperthyroidism- better in 2019. In past, had low TSH in setting of normal T4 meets criteria as subclinical hyperthyroidism. In past, TSH = 0.36 in 09/21 and was 0.55 (11/20)_ was down to 0.3 (07/2013) but has generally been 0.5-0.7. Recent labs, TSH is in low normal range now (07/25 and 04/25) Last few labs showing fT4 towards low end with low TSH. *Low TSH with low fT4 raises question of possible secondary problem* T2DM on metformin/glipiz miguel and (originally Lantus 10). 04/27: Now on Trulicity 1.5 (able to decrease glipizide and stop Lantus ). 07/28: DM last a1c was 8% in 02/26. update labs- may need to increase trulicity to 4.5 THyroid: ongoing pattern low TSH and low FT4 but FSH c/w menopause- no obvious pituitary abnormality. LIPIDS: Update- may need increase atorva 40 -> 80 mg if LDL over 100. Enhanced Provider time spent performing enhanced activities which may include, but are not limited to: reviewing tests, obtaining and/or reviewing patient history; ordering medications, test or procedures; EMR documentation; communication with patient, family, caregiver(s), VNA; pre-visit prep time communication with specialists, ER staff. Time spent: 39 (minutes) [email or web address] Not available 08/03/2021 14:56:16 02/22/2023 02/22/2023 Borderline subclinical hyperthyroidism- better in 2020. In past, had low TSH in setting of normal T4 meets criteria as subclinical hyperthyroidism. In past, TSH = 0.36 in 09/21 and was 0.55 (11/20)_ was down to 0.3 (07/2013) but has generally been 0.5-0.7. Recent labs, TSH is in low normal range now (07/25 and 04/25) Last few labs showing fT4 towards low end with low TSH. *Low TSH with low fT4 raises question of possible secondary problem* 02/28: Find out results of CT (done 02/28 at [facility]) T2DM on metformin/glipiz miguel and (originally Lantus 10). 04/27: Now on Trulicity 1.5 (able to decrease glipizide and stop Lantus ). 02/28: Trulicity 4.5 but having trouble getting it. a1c better. 07/28: DM last a1c was 8% in 02/26. update labs- may need to increase trulicity to 4.5 THyroid: ongoing pattern low TSH and low FT4 but FSH c/w menopause- no obvious pituitary abnormality. LIPIDS: Update- may need increase atorva 40 -> 80 mg if LDL over 100. 02/28: ?CT yesterday for allergies ([facility]). Original MRI at [facility]. check to get cc results - did it include pituitary? Enhanced Provider time spent performing enhanced activities which may include, but are not limited to: reviewing tests, obtaining and/or reviewing patient history; ordering medications, test or procedures; EMR documentation; communication with patient, family, caregiver(s), VNA; pre-visit prep time communication with specialists, ER staff. Time spent: 38 (minutes) [email or web address] Not available 02/22/2023 14:14:18 Plan of Treatment Reminders Order Date Submit Date Provider Last Modified By Organization Details Last Modified Time Details Appointments None recorded. Lab TSH, serum or plasma 2021 022 [facility], [address] [place] [address], [id number], 2 11:46:42 T4, free, serum 2021 022 [facility], [address] [place] [address], [id number], 2 19:13:06 T4, free, serum 2021 022 [facility], [address] [place] [address], [id number], 2 15:00:35 TSH, serum or plasma 2021 022 [facility], [address] [place] [address], [id number], 2 15:43:09 TSH, serum or plasma 2021 022 [facility], [address] [place] [address], [id number], 3 11:17:19 TSH, serum or plasma 2019 020 [facility], [address] [place] [address], [id number], 15:58:29 T4, free, serum 2019 020 [facility], [address] [place] [address], [id number], 15:36:27 FSH (follicle -stimulat ing hormone), serum 2019 [facility], [address] [place] [address], [id number], 14:11:38 acth, plasma 2019 [facility], [address] [place] [address], [id number], 17:02:28 cortisol, am, serum 2019 [facility], [address] [place] [address], [id number], 17:02:30 HbA1c (hemoglob in A1c), blood 2019 [facility], [address] [place] [address], [id number], 12:49:31 lipid panel, serum 2019 [facility], [address] [place] [address], [id number], 16:50:17 microalbu min, urine 2019 [facility] (Lab), [address] [place] [address], [id number], 0 11:22:49 CMP, serum or plasma 2019 [facility], [address] [place] [address], [id number], 16:50:15 microalbu min, urine 2019 [facility], [address] [place] [address], 53834, 2 13:54:18 TSH, serum or plasma 2019 [facility], [address] [place] [address], [id number], 19:46:08 T4, free, serum 2019 020 [facility], [address] [place] [address], [id number], 1 19:45:49 acth, plasma 2019 020 [facility], [address] [place] [address], 12414, 0 23:16:35 cortisol, am, serum 2019 020 [facility], [address] [place] [address], 50109, 0 23:16:37 HbA1c (hemoglob in A1c), blood 2019 020 [facility], [address] [place] [address], [id number], 1 10:08:34 lipid panel, serum 2019 020 [facility], [address] [place] [address], 51284, 1 10:09:13 microalbu min, urine 2019 020 [facility], [address] [place] [address], [id number], 0 13:03:57 CMP, serum or plasma 2019 020 [facility], [address] [place] [address], 03097, 1 10:08:53 Referral None recorded. Procedures None recorded. Surgeries None recorded. Imaging None recorded. Medication Orders glipizide ER 5 mg tablet, extended release 24 hr 2022 023 [facility]/Pharmacy #[id number], [phone] [place], [address], 3 14:25:00 Trulicity 4.5 mg/0.5 mL subcutane ous pen injector 2022 023 [facility]/Pharmacy #[id number], [phone] [place], [address], 3 14:24:59 FreeStyle Lite Strips 2019 020 [facility]/Pharmacy #[id number], [address] [place], [address], 0 19:03:22 FreeStyle Lite Strips 2019 020 [facility]/Pharmacy #[id number], [address] [place], [address], 0 10:06:41 atorvasta tin 40 mg tablet 2018 019 [email or web address] [facility]/Pharmacy #[id number], [address] [place], [address], 3 13:25:31 FreeStyle Lite Strips 2018 019 [facility]/Pharmacy #[id number], [address] [place], [address], 9 11:59:02 glipizide ER 5 mg tablet, extended release 24 hr 2018 019 [email or web address]/Pharmacy #[id number], [address] [place], [address], 2 14:00:22 Patient TargetsNo targets recorded. Patient Instructions Encounter Date Encounter Id Patient Instructions Last Modified By Organization Details Last Modified Time 03/22/2019 [id number] - Stay on Trulicity once a week. - Decrease the glipizide to 5 mg a day. - Go back on atorvastatin 40 mg. - Call office if you start having a lot of low blood sugars. - Get labs done as ordered- every 3 months - Continue to monitor your blood sugars as directed- at least twice daily - Follow a healthy diet - Try and be as physically active as you can - Contact office if any symptoms of low thyroid (excess fatigue, unexplained weight gain, feeling much more cold than usual, constipation, very dry skin) or excess thyroid (heart racing, unexplained weight loss, feeling jittery/nervous/ anxious, change in frequency of moving bowels, tremors, or insomnia). - contact office if you have any headaches above eyes or if you notice any problems with your vision (dark areas that you can't see past). [email or web address] Not available 03/24/2019 11:58:24 6 months [facility] [email or web address] Not availabl e 03/22/2019 09:23:09 09/27/2019 [id number] - Stay on Trulicity once a week. - Stay on glipizide 5 mg a day. - Stay on atorvastatin 40 mg. - Call office if you start having a lot of low blood sugars. - Get labs done as ordered- every 3 months - Continue to monitor your blood sugars as directed- at least twice daily - Follow a healthy diet - Try and be as physically active as you can - Contact office if any symptoms of low thyroid (excess fatigue, unexplained weight gain, feeling much more cold than usual, constipation, very dry skin) or excess thyroid (heart racing, unexplained weight loss, feeling jittery/nervous/ anxious, change in frequency of moving bowels, tremors, or insomnia). - Contact office if you have any headaches above eyes or if you notice any problems with your vision (dark areas that you can't see past). [email or web address] Not available 09/27/2019 10:05:00 6 months [facility] [email or web address] Not availabl e 09/27/2019 09:19:42 04/21/2020 [id number] - Stay on Trulicity once a week. If A1c > 7%, will increase trulicity (1.5 to 3mg) - Stay on glipizide 5 mg a day. - Stay on metformin as before. - Stay on atorvastatin 40 mg. - Call office if you start having a lot of low blood sugars. - Get labs done as ordered- every 3 months - Continue to monitor your blood sugars as directed- at least twice daily - Follow a healthy diet - Try and be as physically active as you can - Contact office if any symptoms of low thyroid (excess fatigue, unexplained weight gain, feeling much more cold than usual, constipation, very dry skin) or excess thyroid (heart racing, unexplained weight loss, feeling jittery/nervous/ anxious, change in frequency of moving bowels, tremors, or insomnia). - Contact office if you have any headaches above eyes or if you notice any problems with your vision (dark areas that you can't see past). [email or web address] Not available 04/27/2020 19:02:18 6+ months [facility]. 40 minutes [email or web address] Not available 04/21/2020 13:49:22 08/03/2021 [id number] - Stay on Trulicity once a week at 3.0 mg. If A1c over 7%, will increase trulicity (4.5mg) - Stay on glipizide - Stay on metformin as before. - Stay on atorvastatin 40 mg. If bad cholesterol is high, may increase to 80 mg or change you to another medicine called rosuvastatin. - Call office if you start having a lot of low blood sugars. - Get labs done as ordered- every 3 months at [facility] - Continue to monitor your blood sugars as directed- at least twice daily - Follow a healthy diet - Try and be as physically active as you can - Contact office if any symptoms of low thyroid (excess fatigue, unexplained weight gain, feeling much more cold than usual, constipation, very dry skin) or excess thyroid (heart racing, unexplained weight loss, feeling jittery/nervous/ anxious, change in frequency of moving bowels, tremors, or insomnia). - Contact office if you have any headaches above eyes or if you notice any problems with your vision (dark areas that you can't see past). [email or web address] Not available 08/03/2021 14:55:44 6+ months [facility]. 40 minutes Not available 08/03/2021 11:36:39 02/22/2023 [id number] - Stay on Trulicity once a week at 4.5mg. - Stay on glipizide - Stay on metformin as before. - Stay on atorvastatin 40 mg. - Call office if you start having a lot of low blood sugars. - Get labs done as ordered- every 3 months at [facility] - Continue to monitor your blood sugars as directed- at least twice daily - Follow a healthy diet - Try and be as physically active as you can - Contact office if any symptoms of low thyroid (excess fatigue, unexplained weight gain, feeling much more cold than usual, constipation, very dry skin) or excess thyroid (heart racing, unexplained weight loss, feeling jittery/nervous/ anxious, change in frequency of moving bowels, tremors, or insomnia). - Contact office if you have any headaches above eyes or if you notice any problems with your vision (dark areas that you can't see past). [email or web address] Not available 02/22/2023 14:19:25 6+ months [facility]. 40 minutes Not available 02/21/2023 09:51:38 Reason for Referral None Reported. Results Created Date Observation Date Name Description Value Unit Range Abnormal Flag Note LastModifiedBy Organization Detail LastModifiedTime 03/01/2003/02/2019 micro album in, urine microalbumin 5.1 mg/L 1.3-20 .0 Not Available [address], [address], 03/02/2019 09:51:14 03/01/2003/02/2019 micro album in, urine creatinine urine 92.5 mg/dL 30.0-1 25.0 Not Available [address], [address], 03/02/2019 09:51:14 03/01/2003/02/2019 micro album in, urine microalb/cre at ratio 5.5 mg/g_ creat 0.0-29 .0 Not Available [address], [address], 03/02/2019 09:51:14 03/01/2003/02/2019 T4, free, serum free T4 0.80 NG/dL 0.75-1 .54 Not Available [address], [address], 03/02/2019 09:51:29 03/01/2003/02/2019 BMP, serum or plasm a glucose 233 mg/dL 70-100 high Not Available [address], [address], 03/02/2019 10:19:09 03/01/20 19 03/02/2019 BMP, serum or plasm a BUN 13 mg/dL 7-18 Not Available [address], [address], 03/02/2019 10:19:09 03/01/20 19 03/02/2019 BMP, serum or plasm a creatinine 0.7 mg/dL 0.8-1. 3 low Not Available [address], [address], 03/02/2019 10:19:09 03/01/2003/02/2019 BMP, serum or plasm a B/C 18.6 ratio Not Available [address], [address], 03/02/2019 10:19:09 03/01/2003/02/2019 BMP, serum or plasm a GFR -non 99.2 mL/mi n Recom fito d GFR by the Natio nal Kidne y Found ation >60 mL/mi n/1.7 3m2 - Rosalina l <60 mL/mi n/1.7 3m2 - Chron ic Kidne y Disea se <15 mL/mi n/1.7 3m2 - Kidne y Failu re Not Available [address], [address], 03/02/2019 10:19:09 03/01/2003/02/2019 BMP, serum or plasm a GFR - if 114.1 mL/mi n For Afric an Ameri can patie nts: Resul ts Multi plied by 1.21 Not Available [address], [address], 03/02/2019 10:19:09 03/01/2003/02/2019 BMP, serum or plasm a sodium 139 mmol/ L 136-14 5 Not Available [address], [address], 03/02/2019 10:19:09 03/01/20 19 03/02/2019 BMP, serum or plasm a potassium 4.5 mmol/ L 3.5-5. 1 HEMS= Speci men Sligh tly Hemol yzed. Chem Resul ts may be effec grace. Not Available [address], [address], 03/02/2019 10:19:09 03/01/20 19 03/02/2019 BMP, serum or plasm a chloride 103 mmol/ L 96-107 Not Available [address], [address]758, 03/02/2019 10:19:09 03/01/2003/02/2019 BMP, serum or plasm a anion gap 8.1 5.0-15 .0 Not Available [address], [address]10[address], 03/02/2019 10:19:09 03/01/20 19 03/02/2019 BMP, serum or plasm a CO2 28 mmol/ L 21-32 Not Available [address], 14051, 03/02/2019 10:19:09 03/01/2003/02/2019 BMP, serum or plasm a calcium 9.5 mg/dL 8.5-10 .3 Not Available [address], [address], 03/02/2019 10:19:09 03/01/2003/02/2019 lipid panel , serum cholesterol 201 mg/dL <200 mg/dl Messi able 200-2 39 mg/dl Borde rline High >240 mg/dl High Not Available [address], [address], 03/02/2019 10:19:10 03/01/2003/02/2019 lipid panel , serum triglyceride s 449 mg/dL high LIPM= Speci men Moder ately Lipem ic. Chem Resul ts may be effec grace. <150 mg/dL Rosalina l 150-1 99 mg/dL Borde rline High 200-4 99 mg/dL High >500 mg/dL Very High Not Available [address], [address], 03/02/2019 10:19:10 03/01/2003/02/2019 lipid panel , serum direct HDL 28 mg/dL <40 mg/dl - Major Risk for CHD >60 mg/dl - Negat elsie Risk for CHD Not Available [address], [address], 03/02/2019 10:19:10 03/01/2003/02/2019 LDL, direc t, serum direct LDL 108 mg/dL RISK CATEG ORY LDL GOAL _ CHD or CHD Risk Equiv alent s <100 mg/dl (10-y ear risk >20%) 2+ Risk Facto rs <130 mg/dl (10-y ear risk <= 20%) 0-1 Risk Facto r <160 mg/dl Almo st all peopl e with 0-1 risk facto r have a 10 year risk <10%, thus 10 year risk asses ment in peopl e with 0-1 risk facto r is not neces darion. Not Available [address], [address], 03/02/2019 10:19:10 03/01/2003/02/2019 HbA1c (hemo globi n A1c), blood hemoglobin A1C 6.1 % 4.8-6. 0 high Goal: <7% in Patie nts with Diabe kane Not Available [address], [address], 03/02/2019 10:28:24 03/01/2003/02/2019 HbA1c (hemo globi n A1c), blood estimated average glucose 128.4 mg/dL Not Available [address], [address], 03/02/2019 10:28:24 03/01/2003/02/2019 TSH, serum or plasm a TSH 0.40 uIU/m L 0.50-6 .00 low The Ameri can Colle ge of Endoc rinol ogy and Ameri can Thyro id Assoc iatio n recom mend goal TSH value s lexi en 0.4-4 .0 mIU/m L. Not Available [address], [address], 03/02/2019 11:06:01 09/20/19 20 09/20/2019 BMP, serum or plasm a glucose 138 mg/dL 70-100 high Not Available [address], [address], 09/20/2019 11:35:46 09/20/19 20 09/20/2019 BMP, serum or plasm a BUN 9 mg/dL 7-18 Not Available [address], [address], 09/20/2019 11:35:46 09/20/19 20 09/20/2019 BMP, serum or plasm a creatinine 0.6 mg/dL 0.8-1. 3 low Not Available [address], [address], 09/20/2019 11:35:46 09/20/19 20 09/20/2019 BMP, serum or plasm a B/C 15.0 ratio Not Available [address], [address], 09/20/2019 11:35:46 09/20/19 20 09/20/2019 BMP, serum or plasm a GFR -non 118.5 mL/mi n Recom fito d GFR by the Natio nal Kidne y Found ation >60 mL/mi n/1.7 3m2 - Rosalina l <60 mL/mi n/1.7 3m2 - Chron ic Kidne y Disea se <15 mL/mi n/1.7 3m2 - Kidne y Failu re Not Available [address], [address], 09/20/2019 11:35:46 09/20/19 20 09/20/2019 BMP, serum or plasm a GFR - if 136.3 mL/mi n For Afric an Ameri can patie nts: Resul ts Multi plied by 1.21 Not Available [address], [address], 09/20/2019 11:35:46 09/20/19 20 09/20/2019 BMP, serum or plasm a sodium 143 mmol/ L 136-14 5 Not Available [address], [address], 09/20/2019 11:35:46 09/20/19 20 09/20/2019 BMP, serum or plasm a potassium 5.1 mmol/ L 3.5-5. 1 Not Available [address], [address], 09/20/2019 11:35:46 09/20/19 20 09/20/2019 BMP, serum or plasm a chloride 105 mmol/ L 96-107 Not Available [address], 15[address], 09/20/2019 11:35:46 09/20/19 20 09/20/2019 BMP, serum or plasm a anion gap 8.8 5.0-15 .0 Not Available [address], [address], 09/20/2019 11:35:46 09/20/19 20 09/20/2019 BMP, serum or plasm a CO2 29 mmol/ L 21-32 Not Available [address], [address], 09/20/2019 11:35:46 09/20/19 20 09/20/2019 BMP, serum or plasm a calcium 9.3 mg/dL 8.5-10 .3 Not Available [address], [address], 09/20/2019 11:35:46 09/20/19 20 09/20/2019 lipid panel , serum cholesterol 128 mg/dL <200 mg/dl Messi able 200-2 39 mg/dl Borde rline High >240 mg/dl High Not Available [address], [address], 09/20/2019 11:35:47 09/20/1909/20/2019 lipid panel , serum triglyceride s 101 mg/dL <150 mg/dL Rosalina l 150-1 99 mg/dL Borde rline High 200-4 99 mg/dL High >500 mg/dL Very High Not Available [address], [address], 09/20/2019 11:35:47 09/20/19 20 09/20/2019 lipid panel , serum direct HDL 39 mg/dL <40 mg/dl - Major Risk for CHD >60 mg/dl - Negat elsie Risk for CHD Not Available [address], [address], 09/20/2019 11:35:47 09/20/1909/20/2019 LDL, direc t, serum direct LDL 69 mg/dL RISK CATEG ORY LDL GOAL _ CHD or CHD Risk Equiv alent s <100 mg/dl (10-y ear risk >20%) 2+ Risk Facto rs <130 mg/dl (10-y ear risk <= 20%) 0-1 Risk Facto r <160 mg/dl Almo st all peopl e with 0-1 risk facto r have a 10 year risk <10%, thus 10 year risk asses ment in peopl e with 0-1 risk facto r is not neces darion. Not Available [address], [address], 09/20/2019 11:35:48 09/20/1909/20/2019 HbA1c (hemo globi n A1c), blood hemoglobin A1C 7.3 % 4.8-6. 0 high Goal: <7% in Patie nts with Diabe kane Not Available [address], [address], 09/20/2019 12:02:15 09/20/19 20 09/20/2019 HbA1c (hemo globi n A1c), blood estimated average glucose 162.8 mg/dL Not Available [address], [address], 09/20/2019 12:02:15 09/20/19 20 09/20/2019 T4, free, serum free T4 0.91 NG/dL 0.75-1 .54 Not Available [address], [address], 09/20/2019 12:46:15 09/20/1909/20/2019 micro album in, urine microalbumin 10.5 mg/L 1.3-20 .0 Not Available [address], [address], 09/20/2019 12:54:35 09/20/1909/20/2019 micro album in, urine creatinine urine 114.5 mg/dL 30.0-1 25.0 Not Available [address], [address], 09/20/2019 12:54:35 09/20/1909/20/2019 micro album in, urine microalb/cre at ratio 9.2 mg/g_ creat 0.0-29 .0 Not Available [address], [address], 09/20/2019 12:54:35 09/20/1909/20/2019 TSH, serum or plasm a TSH 0.53 uIU/m L 0.50-6 .00 The Ameri can Colle ge of Endoc rinol ogy and Ameri can Thyro id Assoc iatio n recom mend goal TSH value s betwe en 0.4-4 .0 mIU/m L. Not Available [address], [address], 09/20/2019 13:29:39 11/01/19 20 11/01/2019 T4, free, serum free T4 0.76 NG/dL 0.75-1 .54 Not Available [address], [address], 11/01/2019 12:20:14 11/01/19 20 11/01/2019 TSH, serum or plasm a TSH 0.65 uIU/m L 0.50-6 .00 The Ameri can Colle ge of Endoc rinol ogy and Ameri can Thyro id Assoc iatio n recom mend goal TSH value s betwe en 0.4-4 .0 mIU/m L. Not Available [address], [address], 11/01/2019 12:20:15 11/01/19 20 11/01/2019 HbA1c (hemo globi n A1c), blood hemoglobin A1C 7.0 % 4.8-6. 0 high Goal: <7% in Patie nts with Diabe kane Not Available [address], [address], 11/01/2019 12:28:47 11/01/19 20 11/01/2019 HbA1c (hemo globi n A1c), blood estimated average glucose 154.2 mg/dL Not Available [address], [address], 11/01/2019 12:28:47 11/01/19 20 11/01/2019 CMP, serum or plasm a glucose 167 mg/dL 70-100 high Not Available [address], [address], 11/01/2019 12:46:47 11/01/19 20 11/01/2019 CMP, serum or plasm a BUN 10 mg/dL 7-18 Not Available [address], [address], 11/01/2019 12:46:47 11/01/19 20 11/01/2019 CMP, serum or plasm a creatinine 0.6 mg/dL 0.8-1. 3 low Not Available [address], [address], 11/01/2019 12:46:47 11/01/19 20 11/01/2019 CMP, serum or plasm a B/C 16.7 ratio Not Available [address], [address], 11/01/2019 12:46:47 11/01/19 20 11/01/2019 CMP, serum or plasm a GFR -non 118.1 mL/mi n Recom fito d GFR by the Natio nal Kidne y Found ation >60 mL/mi n/1.7 3m2 - Rosalina l <60 mL/mi n/1.7 3m2 - Chron ic Kidne y Disea se <15 mL/mi n/1.7 3m2 - Kidne y Failu re Not Available [address], [address], 11/01/2019 12:46:47 11/01/19 20 11/01/2019 CMP, serum or plasm a GFR - if 135.7 mL/mi n For Afric an Ameri can patie nts: Resul ts Multi plied by 1.21 Not Available [address], [address], 11/01/2019 12:46:47 11/01/19 20 11/01/2019 CMP, serum or plasm a sodium 141 mmol/ L 136-14 5 Not Available [address], [address], 11/01/2019 12:46:47 11/01/19 20 11/01/2019 CMP, serum or plasm a potassium 4.7 mmol/ L 3.5-5. 1 Not Available [address], [address], 11/01/2019 12:46:47 11/01/19 20 11/01/2019 CMP, serum or plasm a chloride 104 mmol/ L 96-107 Not Available [address], [address], 11/01/2019 12:46:47 11/01/19 20 11/01/2019 CMP, serum or plasm a anion gap 9.4 5.0-15 .0 Not Available [address], [address], 11/01/2019 12:46:47 11/01/19 20 11/01/2019 CMP, serum or plasm a CO2 28 mmol/ L 21-32 Not Available [address], [address], 11/01/2019 12:46:47 11/01/19 20 11/01/2019 CMP, serum or plasm a calcium 9.3 mg/dL 8.5-10 .3 Not Available [address], [address], 11/01/2019 12:46:47 11/01/19 20 11/01/2019 CMP, serum or plasm a total protein 6.8 g/dL 6.4-8. 2 Not Available [address], [address], 11/01/2019 12:46:47 11/01/19 20 11/01/2019 CMP, serum or plasm a albumin 3.7 g/dL 3.4-5. 0 Not Available [address], [address], 11/01/2019 12:46:47 11/01/19 20 11/01/2019 CMP, serum or plasm a globulin 3.1 g/dL Not Available [address], [address], 11/01/2019 12:46:47 11/01/19 20 11/01/2019 CMP, serum or plasm a A/G 1.2 ratio 0.8-2. 0 Not Available [address], [address], 11/01/2019 12:46:47 11/01/19 20 11/01/2019 CMP, serum or plasm a total bilirubin 0.60 mg/dL 0.00-1 .00 Not Available [address], [address], 11/01/2019 12:46:47 11/01/19 20 11/01/2019 CMP, serum or plasm a AST 7 U/L 0-37 Not Available [address], [address], 11/01/2019 12:46:47 11/01/19 20 11/01/2019 CMP, serum or plasm a ALT 24 U/L 6-63 Not Available [address], [address], 11/01/2019 12:46:47 11/01/19 20 11/01/2019 CMP, serum or plasm a alk. phos. 71 U/L 50-136 Not Available [address], [address], 11/01/2019 12:46:47 11/01/19 20 11/01/2019 lipid panel , serum cholesterol 134 mg/dL <200 mg/dl Messi able 200-2 39 mg/dl Borde rline High >240 mg/dl High Not Available [address], [address], 11/01/2019 12:46:48 11/01/19 20 11/01/2019 lipid panel , serum triglyceride s 150 mg/dL <150 mg/dL Rosalina l 150-1 99 mg/dL Borde rline High 200-4 99 mg/dL High >500 mg/dL Very High Not Available [address], [address], 11/01/2019 12:46:48 11/01/19 20 11/01/2019 lipid panel , serum direct HDL 42 mg/dL <40 mg/dl - Major Risk for CHD >60 mg/dl - Negat elsie Risk for CHD Not Available [address], [address], 11/01/2019 12:46:48 11/01/19 20 11/01/2019 LDL, calcu berniced , serum (OBS) LDL - calculated 62.0 RISK CATEG ORY LDL GOAL _ CHD or CHD Risk Equiv alent s <100 mg/dl (10-y ear risk >20%) 2+ Risk Facto rs <130 mg/dl (10-y ear risk <= 20%) 0-1 Risk Facto r <160 mg/dl Almo st all peopl e with 0-1 risk facto r have a 10 year risk <10%, thus 10 year risk asses ment in peopl e with 0-1 risk facto r is not [place]ana [place]. Not Available [address], [address], 11/01/2019 12:46:49 11/01/19 20 11/01/2019 micro album in, urine microalbumin 5.2 mg/L 1.3-20 .0 Not Available [address], [address], 11/01/2019 13:03:57 11/01/19 20 11/01/2019 micro album in, urine creatinine urine 115.1 mg/dL 30.0-1 25.0 Not Available [address], [address], 11/01/2019 13:03:57 11/01/19 20 11/01/2019 micro album in, urine microalb/cre at ratio 4.5 mg/g_ creat 0.0-29 .0 Not Available [address], [address], 11/01/2019 13:03:57 11/01/19 20 11/02/2019 acth, plasm a acth, plasma 14 pg/mL 6-50 normal Refer ence range appli es only to speci mens colle cted betwe en 7am-1 0am Not Available [facility] [place] [facility] [address] [place] [address] [address], [place], [address], 11/02/2019 23:16:35 11/01/19 20 11/02/2019 corti dandre, am, serum cortisol, A.M. 9.6 mcg/d L normal Refer ence Range 8 a.m. (7-9 a.m.) Speci men: 4.0-2 2.0 Not Available [facility] [address], [place], [address], 11/02/2019 23:16:37 02/28/20 21 02/27/2021 HGB A1C hemoglobin A1C 8.0 % 4.8-6. 0 high Goal: <7% in Patie nts with Diabe kane An A1c betwe en 5.7-6 .4% is ident ified as pre-d iabet es and sugge sts risk for progr essio n to diabe kane Two a1c value s of 6.5% or highe r is consi stent with a diagn osis of diabe kane but may need furth er confi rmati on Not Available [address], [address], 02/27/2021 12:49:30 02/28/20 21 02/27/2021 HGB A1C estimated average glucose 182.9 mg/dL Not Available [address], [address], 02/27/2021 12:49:30 02/28/20 21 02/27/2021 FREE T4 free T4 0.80 NG/dL 0.75-1 .54 Not Available [address], [address], 02/27/2021 15:36:27 02/28/20 21 02/27/2021 TSH TSH 0.32 uIU/m L 0.50-6 .00 low The Ameri can Colle ge of Endoc rinol ogy and Ameri can Thyro id Assoc iatio n recom mend goal TSH value s betwe en 0.4-4 .0 mIU/m L. Not Available [address], [address], 02/27/2021 15:58:29 02/28/20 21 02/27/2021 COMP. METAB OLIC PANEL glucose 192 mg/dL 70-100 high Not Available [address], [address], 02/27/2021 16:50:15 02/28/20 21 02/27/2021 COMP. METAB OLIC PANEL BUN 14 mg/dL 7-18 Not Available [address], [address], 02/27/2021 16:50:15 02/28/20 21 02/27/2021 COMP. METAB OLIC PANEL creatinine 0.6 mg/dL 0.8-1. 3 low Not Available [address], [address], 02/27/2021 16:50:15 02/28/20 21 02/27/2021 COMP. METAB OLIC PANEL B/C 23.3 ratio Not Available [address], [address], 02/27/2021 16:50:15 02/28/20 21 02/27/2021 COMP. METAB OLIC PANEL GFR 111.6 mL/mi n Recom fito d GFR by the Natio nal Kidne y Found ation >60 mL/mi n/1.7 3m2 - Rosalina l <60 mL/mi n/1.7 3m2 - Chron ic Kidne y Disea se <15 mL/mi n/1.7 3m2 - Kidne y Failu re Not Available [address], [address], 02/27/2021 16:50:15 02/28/20 21 02/27/2021 COMP. METAB OLIC PANEL sodium 141 mmol/ L 136-14 5 Not Available [address], [address], 02/27/2021 16:50:15 02/28/20 21 02/27/2021 COMP. METAB OLIC PANEL potassium 4.7 mmol/ L 3.5-5. 1 Not Available [address], [address], 02/27/2021 16:50:15 02/28/20 21 02/27/2021 COMP. METAB OLIC PANEL chloride 102 mmol/ L 96-107 Not Available [address], [address], 02/27/2021 16:50:15 02/28/20 21 02/27/2021 COMP. METAB OLIC PANEL anion gap 10.4 5.0-15 .0 Not Available [address], [address], 02/27/2021 16:50:15 02/28/20 21 02/27/2021 COMP. METAB OLIC PANEL CO2 29 mmol/ L 21-32 Not Available [address], [address], 02/27/2021 16:50:15 02/28/20 21 02/27/2021 COMP. METAB OLIC PANEL calcium 9.6 mg/dL 8.5-10 .3 Not Available [address], [address], 02/27/2021 16:50:15 02/28/20 21 02/27/2021 COMP. METAB OLIC PANEL total protein 7.5 g/dL 6.4-8. 2 Not Available [address], [address], 02/27/2021 16:50:15 02/28/20 21 02/27/2021 COMP. METAB OLIC PANEL albumin 4.0 g/dL 3.4-5. 0 Not Available [address], [address], 02/27/2021 16:50:15 02/28/20 21 02/27/2021 COMP. METAB OLIC PANEL globulin 3.5 g/dL Not Available [address], [address], 02/27/2021 16:50:15 02/28/20 21 02/27/2021 COMP. METAB OLIC PANEL A/G 1.1 ratio 0.8-2. 0 Not Available [address], [address], 02/27/2021 16:50:15 02/28/20 21 02/27/2021 COMP. METAB OLIC PANEL total bilirubin 0.50 mg/dL 0.00-1 .00 Not Available [address], [address], 02/27/2021 16:50:15 02/28/20 21 02/27/2021 COMP. METAB OLIC PANEL AST 18 U/L 0-37 Not Available [address], [address], 02/27/2021 16:50:15 02/28/20 21 02/27/2021 COMP. METAB OLIC PANEL ALT 53 U/L 6-63 Not Available [address], [address], 02/27/2021 16:50:15 02/28/20 21 02/27/2021 COMP. METAB OLIC PANEL alk. phos. 78 U/L 50-136 Not Available [address], [address], 02/27/2021 16:50:15 02/28/20 21 02/27/2021 LIPID PANEL cholesterol 180 mg/dL <200 mg/dl Messi able 200-2 39 mg/dl Borde rline High >240 mg/dl High Not Available [address], [address], 02/27/2021 16:50:17 02/28/20 21 02/27/2021 LIPID PANEL triglyceride s 119 mg/dL <150 mg/dL Rosalina l 150-1 99 mg/dL Borde rline High 200-4 99 mg/dL High >500 mg/dL Very High Not Available [address], [address], 02/27/2021 16:50:17 02/28/20 21 02/27/2021 LIPID PANEL direct HDL 45 mg/dL <40 mg/dl - Major Risk for CHD >60 mg/dl - Negat elsie Risk for CHD Not Available [address], [address], 02/27/2021 16:50:17 02/28/20 21 02/27/2021 LDL - CALCU LATED LDL - calculated 111.2 RISK CATEG ORY LDL GOAL _ CHD or CHD Risk Equiv alent s <100 mg/dl (10-y ear risk >20%) 2+ Risk Facto rs <130 mg/dl (10-y ear risk <= 20%) 0-1 Risk Facto r <160 mg/dl Almo st all peopl e with 0-1 risk facto r have a 10 year risk <10%, thus 10 year risk asses ment in peopl e with 0-1 risk facto r is not neces darion. Not Available [address], [address], 02/27/2021 16:50:18 02/28/20 21 02/27/2021 MICRO ALBUM IN/CR EATIN INE RATIO PANEL , URINE microalbumin 6.9 mg/L 1.3-20 .0 Not Available [address], [address], 02/27/2021 17:54:27 02/28/20 21 02/27/2021 MICRO ALBUM IN/CR EATIN INE RATIO PANEL , URINE creatinine urine 107.0 mg/dL 30.0-1 25.0 Not Available [address], [address], 02/27/2021 17:54:27 02/28/20 21 02/27/2021 MICRO ALBUM IN/CR EATIN INE RATIO PANEL , URINE microalb/cre at ratio 6.4 mg/g_ creat 0.0-29 .0 Not Available [address], [address], 02/27/2021 17:54:27 02/28/20 21 03/02/2021 FSH FSH 56.7 mIU/m L Male: 1.0 - 42.5 mIU/m L Femal e Ovula ting: Folli cular Phase : 2.7 - 15.4 mIU/m L Peak: 3.9 - 22.0 mIU/m L Lutea l Phase : 1.0 - 14.4 mIU/m L Postm enopa usal: 25.0 - 160.0 mIU/m L Not Available [address], [address], 03/02/2021 14:11:38 02/28/20 21 03/04/2021 ACTH, PLASM A acth, plasma 19 pg/mL 6-50 normal Refer ence range appli es only to speci mens colle cted betwe en 7am-1 0am Not Available [facility] [address], [address], 03/04/2021 17:02:28 02/28/20 21 03/04/2021 CORTI DANDRE, TOTAL cortisol, total 5.7 mcg/d L normal Refer ence Range : For 8 a.m.( 7-9 a.m.) Speci men: 4.0-2 2.0 Refer ence Range : For 4 p.m.( 3-5 p.m.) Speci men: 3.0-1 7.0 * Pleas e inter pret above resul ts accor dingl y * Not Available [facility] [address], [address], 03/04/2021 17:02:29 02/28/20 21 03/04/2021 CORTI DANDRE, A.M. cortisol, A.M. TNP mcg/d L TEST NOT PERFO RMED Dupli nelson test. Not Available [facility] [place] [facility] [address], [place], [address], 03/04/2021 17:02:30 03/01/20 23 03/01/2023 MRI, cervi chris spine No observ ation record ed. [facility] [address], [place], [address], 03/01/2023 19:01:12 Result Notes None recorded. Problems Name Problem SNOMED Code Status Onset Date Resolution Date Notes Provider Name and Address Organization Details Recorded Time Subclinical hyperthyroidis m 405408181 Active MD Michael [place], [address], [facility] 5 09:20:28 Diabetes mellitus 35726276 Active MD [place], [address], [facility] 4 16:13:41 Type 2 diabetes mellitus without complication 719857410 Active MD Michael [place], [address], [facility] 5 09:20:28 Mixed hyperlipidemia 569181236 Active Milton Bravo MD [address] [place] [address] [place], [address], [facility] 5 09:20:28 Problem Notes None recorded. Medical Equipment None Reported. Allergies Allergen ID Allergen Name Allergen Category Reaction Reaction Severity Criticality Documentation Date Start Date Code Code System Note Provider Name and Address Organization Details Recorded Time 049100 aspirin medicatio n rash Not available Not available 08/01/2013 1191 RxNorm di Hernandez [facility] 4 12:57:41 Medications Name Sig Start Date Stop Date Status Note LastModified by Organization Details LastModified Time acetaminop hen/codein e #3 300-30 mgtabs active Not Available Not Available Not Available atorvastat in calcium 40 mg tabs active Not Available Not Available N ot Available freestyle mis lite 09/26 completed Not Available Not Available Not Available freestyle kane litefreest yle lite test strips active Not Available Not Available Not Available cyclobenza prema hcl 10 mg tabs active Not Available Not Available N ot Available loratadine tab 10mg active Not Available Not Available Not Available glipizide er 10 mg tb24 active Not Available Not Available Not Available fluticason e spr 50mcg active Not Available Not Available Not Available freestyle mis lancets 09/26 completed Not Available Not Available Not Available metformin hcl 1000 mg tabs active Not Available Not Available Not Available glipizide er tab 10mg active Not Available Not Available Not Available nortriptyl ine hcl 10 mg caps active Not Available Not Available Not Available omeprazole cap 20mg active Not Available Not Available Not Available proair hfa aer active Not Available Not Available Not Available lisinopril 2.5 mg tabs active Not Available Not Available Not Available simvastati n tab 40mg active Not Available Not Available N ot Available freestyle lite test strips strp active Not Available Not Available Not Available freestyle lancets misc active Not Available Not Available Not Available freestyle kane lite 09/26 completed Not Available Not Available Not Available lisinopril tab 2.5mg active Not Available Not Available No t Available metformin tab 1000mg active Not Available Not Available N ot Available cyclobenza prema 10 mg tablet TAKE 1 TABLET IN THE EVENING NEEDED 05/10 completed Not Available Not Available Not Available amoxicilli n 500 mg capsule 05/10 completed Not Available Not Available Not Available atorvastat in 40 mg tablet TAKE 1 TABLET BY MOUTH EVERY DAY 02/22 completed Not Available Not Available Not Available Vitamin B-2 100 mg tablet 02/22 completed Not Available Not Available Not Available terconazol e 0.4 % vaginal cream 05/10 completed Not Available Not Available Not Available atorvastat in 80 mg tablet TAKE 1 TABLET BY MOUTH IN THE MORNING active Not Available Not Available No t Available fluconazol e 150 mg tablet 05/10 completed Not Available Not Available Not Available sumatripta n 100 mg tablet PLEASE SEE ATTACHED FOR DETAILED DIRECTIO NS 02/22 completed Not Available Not Available Not Available hydrocodon e 5 mg-acetami nophen 325 mg tablet active as needed Not Available Not Available Not Available glipizide ER 10 mg tablet, extended release 24 hr TAKE 1 TABLET BY MOUTH EVERY DAY 02/22 completed Not Available Not Available Not Available FreeStyle Lancets 28 gauge USE DIRECTED TWICE A DAY active Not Available Not Available No t Available prednisone 20 mg tablet 02/22 completed Not Available Not Available Not Available glipizide ER 5 mg tablet, extended release 24 hr Take 1 tablet twice a day by oral route for 30 days. active Not Available Not Available No t Available Lantus U-100 Insulin 100 unit/mL subcutaneo us solution 0-0-0-10 03/22 completed Not Available Not Available Not Available acetaminop hen 300 mg-codeine 30 mg tablet TAKE 1 TABLET BY MOUTH EVERY 6 TO 8 HOURS 08/03 completed Not Available Not Available Not Available terazosin 1 mg capsule 02/22 completed Not Available Not Available Not Available tramadol 50 mg tablet 02/22 completed Not Available Not Available Not Available butalbital -acetamino phen-caffe ine 50 mg-325 mg-40 mg tablet 02/22 completed Not Available Not Available Not Available simvastati n 40 mg tablet TAKE 1 TABLET AT BEDTIME active Not Available Not Available No t Available amitriptyl ine 25 mg tablet TAKE 1 TABLET AT BEDTIME 02/22 completed Not Available Not Available Not Available magnesium oxide 400 mg (241.3 mg magnesium) tablet 02/22 completed Not Available Not Available Not Available tamsulosin 0.4 mg capsule 08/03 completed Not Available Not Available Not Available amitriptyl ine 10 mg tablet TAKE 1 TABLET BY MOUTH EVERY DAY AT 7:30PM 02/22 completed Not Available Not Available Not Available meclizine 25 mg tablet 08/03 completed Not Available Not Available Not Available phenazopyr idine 100 mg tablet 02/22 completed Not Available Not Available Not Available potassium citrate ER 10 mEq (1,080 mg) tablet,ext ended release TAKE 1 TABLET BY MOUTH TWICE A DAY active Not Available Not Available No t Available nortriptyl ine 10 mg capsule TAKE ONE CAPSULE BY MOUTH DAILY AT BEDTIME FOR 5 DAYS THEN TAKE 1 TO 2 CAPSULES active Not Available Not Available No t Available metformin 1,000 mg tablet TAKE 1 TABLET BY MOUTH TWICE A DAY WITH BREAKFAS T AND DINNER active Not Available Not Available No t Available naproxen sodium 220 mg tablet Take 1 tablet every 12 hours by oral route as needed. 05/05 completed Not Available Not Available Not Available pyridoxine (vitamin B6) 50 mg tablet TAKE 1 TABLET BY MOUTH EVERY DAY active Not Available Not Available No t Available omeprazole 20 mg capsule,de layed release TAKE ONE CAPSULE EVERY DAY 05/05 completed Not Available Not Available Not Available amoxicilli n 250 mg capsule 09/26 completed Not Available Not Available Not Available bisacodyl 5 mg tablet,del ayed release 08/03 completed Not Available Not Available Not Available pyridoxine (vitamin B6) 100 mg tablet TAKE 1 TABLET ORALLY DAILY FOR 90 DAYS 02/22 completed Not Available Not Available Not Available gabapentin 100 mg capsule 08/03 completed Not Available Not Available Not Available azelastine 137 mcg (0.1 %) nasal spray ADMINIST ER 1 SPRAY INTO EACH NOSTRIL 2 TIMES DAILY. USE IN EACH NOSTRIL DIRECTED active Not Available Not Available No t Available epinephrin e 0.3 mg/0.3 mL injection, auto-injec tor INJECT 1 PEN FOR A SINGLE DOSE NEEDED active Not Available Not Available No t Available ondansetro n 4 mg disintegra ting tablet 02/22 completed Not Available Not Available Not Available fluticason e propionate 50 mcg/actuat ion nasal spray,susp ension USE 1 SPRAY IN EACH NOSTRIL EVERY DAY active prn Not Available Not Available No t Available lisinopril 2.5 mg tablet TAKE 1 TABLET BY MOUTH EVERY DAY IN THE MORNING active Not Available Not Available No t Available loratadine 10 mg tablet TAKE 1 TABLET (10 MG) BY MOUTH DAILY NEEDED FOR ALLERGIE S active Not Available Not Available No t Available naproxen 500 mg tablet 02/22 completed Not Available Not Available Not Available insulin syringe U-100 with needle 0.5 mL 29 gauge x 1/2 INJECT BY SUBCUTAN EOUS ROUTE EVERY DAY active Not Available Not Available No t Available diazepam 5 mg tablet Take 1 tablet twice a day by oral route as needed. active Not Available Not Available No t Available oxycodone 5 mg tablet 05/05 completed Not Available Not Available Not Available neomycin 3.5 mg/g-polym yxin B 10,000 unit/g-dex ameth 0.1 % eye oint 08/03 completed Not Available Not Available Not Available Saline Nasal 0.65 % spray aerosol ADMINIST ER 1 SPRAY INTO EACH NOSTRIL IF NEEDED FOR CONGESTI ON. active Not Available Not Available No t Available cyclobenza prema 5 mg tablet TAKE 1-2 TABS BY MOUTH AT BEDTIME NEEDED FOR MUSCLE SPASM 02/22 completed Not Available Not Available Not Available nitrofuran toin monohydrat e/macrocry stals 100 mg capsule 08/03 completed Not Available Not Available Not Available Pain Relief Extra Strength (acetamino phen) 500 mg tablet TAKE 1 TABLET BY MOUTH EVERY 8 HOURS NEEDED active Not Available Not Available No t Available BD Insulin Syringe Ultra-Fine 0.5 mL 30 gauge x 1/2 USE DIRECTED EVERY DAY active Not Available Not Available No t Available ProAir HFA 90 mcg/actuat ion aerosol inhaler INHALE 2 PUFFS EVERY 4 TO 6 HOURS NEEDED 05/10 completed Not Available Not Available Not Available FreeStyle Lite Meter kit TEST 1 TIMES BY INTRADER MAL ROUTE EVERY DAY active Not Available Not Available No t Available FreeStyle Lite Strips USE TO TEST BLOOD SUGARS TWICE DAILY 2022 active Not Available Not Available Not Avai lable omeprazole 20 mg tablet,del ayed release Take 1 tablet every day by oral route. 2013 active Not Available Not Available Not Avai lable GaviLyte-G 236 gram-22.74 gram-6.74 gram-5.86 gram oral solution 09/26 completed Not Available Not Available Not Available butalbital -acetamino phen-caffe ine 50 mg-300 mg-40 mg capsule TAKE 1 CAPSULE BY MOUTH EVERY 4 HOURS NEEDED FOR HEADACHE MAX 2 CAPS DAILY AND 6 CAPSULES WEEKLY 02/22 completed Not Available Not Available Not Available Trulicity 1.5 mg/0.5 mL subcutaneo us pen injector INJECT 1 PEN ONCE A WEEK 07/08 completed Not Available Not Available Not Available Trulicity 0.75 mg/0.5 mL subcutaneo us pen injector INJECT 0.5 ML EVERY WEEK BY SUBCUTAN EOUS ROUTE FOR 30 DAYS. 03/22 completed Not Available Not Available Not Available Trulicity 3 mg/0.5 mL subcutaneo us pen injector INJECT 1 PEN SUBCUTAN EOUSLY ONCE A WEEK 11/30 completed Not Available Not Available Not Available Trulicity 4.5 mg/0.5 mL subcutaneo us pen injector INJECT 4.5MG WEEKLY active Not Available Not Available No t Available Vitals Date Recorded Body weight Heart rate Systolic And Diastolic Provider Name and Address Organization Details Last Updated DateTime 08/03/2021 50617.35 g 80 /min 126/81 mm[Hg] New Emmanuel RN [facility] 08/03/2021 14:06:05 Date Recorded Body weight Body mass index (BMI) Body height Heart rate Systolic And Diastolic Provider Name and Address Organization Details Last Updated DateTime 02/22/2023 75752.98 g 25.2 kg/m2 163.83 cm 85 /min 110/71 mm[Hg] Cheri Archer LPN [facility] 02/22/2023 13:34:29 Date Recorded Body height Body mass index (BMI) Body weight Heart rate Systolic And Diastolic Provider Name and Address Organization Details Last Updated DateTime 03/22/2019 163.2 cm 24.9 kg/m2 50607.49 g 84 /min 98/64 mm[Hg] Reba Snow EMPLOYMENT COORDINATOR [facility] 03/22/2019 08:40:15 Social History Question Answer Notes LastModified by Organizat ion Details LastModified Time Tobacco Smoking Status [facility] 15:17:45 Do You Have An Advance Directive? Yes Information not available 08/01/2013 How Much Tobacco Do You Chew? None Information not available 08/01/2013 What Type Of Diet Are You Following? REGULAR Information not available 08/01/2013 Which Illicit Or Recreational Drugs Have You Used? None Information not available 08/01/2013 How Many Days In The Past Year Have You Had A Heavy Drinking Consumption (4+ Female, 5+ Male)? 0 Information no t available 08/01/2013 Live Alone Or With Others? With Others Information not available 08/01/2013 Patient Has Health Care Proxy Signed And In Chart No Charlie Tomlinson [email or web address] Information not available 05/08/2018 Marital Status Informatio n not available 08/01/2013 What Was The Date Of Your Most Recent Tobacco Screening? 08/10/2018 Information not available 11/29/2018 How Many Children Do You Have? 3 Information not available 08/01/2013 Seat Belts Used Routinely Yes Information not available 08/01/2013 Smoke Alarm In Home Yes Information not available 08/01/2013 General Stress Level Low Information not available 08/01/2013 Sex: Unknown Functional Status Question Answer Note LastModified by Organizat ion Details LastModified Time Do you use any illicit or recreational drugs? No Information not available 08/03/2021 What is your level of alcohol consumption? 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 Family History Relationship Description Onset Age of this Age Resolved Age Notes LastModified by Organization Details LastModified Time Mother Diabetes mellitus [email or web address] n Not available 03/05/2015 11:48:57 Father Diabetes mellitus also amputa tion [email or web address] n Not available 03/05/2015 11:48:57 Brother Malignant tumor of pharynx [email or web address] Not available 2018 14:31:49 Notes:Brother on hospice 2 sisters; blood clots both passed 4 years ago03/22/19 Mom at 63- UT and told of fluid excess and also asthma. DM Dad at 67- had DM. 2 brothers. older in MVA. 5 sisters- 2 with thyroid. one had surgery to remove. One on pills. all 5 had DM; 2 had UT. Pt is the baby 01/20- no changes to family. Pt has 3 kids- 1 girl (27) and 2 boys (23 and 22). 3 grandchildren (1 girl and 2 boys- all healthy) 02/20- Sister 01/21 from clot (last year sister 01/20 from clot also)- 50 and 63. Two other sisters being treated for clot- Brother had clot too. 05/27- Brother- throat CA (smoker). 3 kids- doing OK. 6 grands (including one expected 09/24) 08/25- Brother about the same. Kids good. Grands OK. 03/27- Brother on hospice (throat CA- no tx). Feeding tube. 09/25: Brother- throat CA. almost at end. 6 grandkids all healthy 04/27: All healthy. Brother still sick (throast CA). 07/28: Brother still sick. Kids and grands (6) all ok Medical History Condition Response Diabetes Type II Y Hyperlipidemia Y Hyperthyroid Y Gynecological HistoryNo gynecological history recorded. Obstetrics History GPAL:G 0 P 0 0 0 0 Immunizations Vaccine Type Date Status Note Provider Nam e and Address Organization Details Recorded Time Influenza, split virus, quadrivalent, PF 9 completed Not Available [facility] 05/26/2019 02:32:22 Influenza, split virus, quadrivalent, preservative 0 completed Siena Meyer LPN [facility], [facility] 04/21/2020 13:00:42 COVID-19, mRNA, LNP-S, PF, 100 mcg/0.5mL dose or 50 mcg/0.25mL dose 2 completed New Emmanuel RN [facility] 08/03/2021 14:03:27 Past Encounters Encounter ID Performer Location Encounter Start Date Encounter Closed Date Diagnosis/Indication Diagnosis SNOMED-CT Code Diagnosis ICD10 Code Diagnosis Note [id number] Ashwin law MD , [facility] [place], OFFICE [address] [place] [address] 08/01/2013 14:18:40 08/01/2013 15:43:50 Adult health examination [id number] PHA today wnl see Risk Assessment and Lifestyle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
--- OUTSIDE RECORDS SUMMARY | 2024-11-15 14:19 | XMS_ITS | Clinical Summary ---
Author Organization [address] [place] [address] [place] [phone] Phone Care Team Providers Care Seismic Observer Name Role Phone Olman Sanchez MD Primary Care Provi roxanne Allergies Active Allergy Reactions Criticality Noted Date Comments Aspirin Anaphylaxis High 10/15/2024 Shellfish Derived Anaphylaxis High 10/15/2024 Medications glipiZIDE (GLUCOTROL XL) 10 mg 24 hr tablet Take 1 tablet (10 mg total) by mouth 1 (one) time each day. Do not crush, chew, or split. Active metFORMIN (GLUCOPHAGE) 1,000 mg tablet Take 1 tablet (1,000 mg total) by mouth 2 (two) times a day with meals. Active pyridoxine (B-6) 50 mg tablet Take 1 tablet (50 mg total) by mouth 1 (one) time each day. Active dulaglutide (Trulicity) 4.5 mg/0.5 mL pen injector injection Inject 0.5 mL (4.5 mg total) under the skin every 7 (seven) days. TAKES ON THURSDAYS Active atorvastatin (LIPITOR) 80 mg tablet Take 1 tablet (80 mg total) by mouth at bedtime. Active tiZANidine (ZANAFLEX) 2 mg capsule Take 1 capsule (2 mg total) by mouth 3 (three) times a day. Active Encounters Date Type Department Care Team Description 10/15/2024 3:00 PM EDT Office Visit Orthopedic Surgery [address] [phone] Radha Barton PA Trigger middle finger of left hand (Primary Dx) 09/11/2024 2:30 PM EDT Consult Orthopedic Surgery [address] [place] [phone] Radha Barton PA Trigger ring finger of right hand (Primary Dx); Trigger middle finger of left hand from Last 3 Months Surgical History Surgery Date Site/Laterality Comments HAND SURGERY Right SECTION Medical History Medical History Date Comments DM (diabetes mellitus) (CMS/[facility] V24, [facility] V28 ) Asthma Social History Tobacco Use Types Packs/Day Years Used Date Smoking Tobacco: Never Assessed Comments Unknown Sex and Gender Information Value Date Recorded Sex Assigned at Not on file Legal Sex Female 11:06 AM EDT Gender Identity Not on file Sexual Orientation Not on file Obstetrics History Last Filed Vital Signs Vital Sign Reading Time Taken Comments Blood Pressure - - Pulse - - Temperature - - Respiratory Rate - - Oxygen Saturation - - Inhaled Oxygen Concentration - - Weight 65.8 kg (145 lb) 09/11/2024 2:25 PM EDT Height 165.1 cm (5' 5 ) 09/11/2024 2:25 PM EDT Body Mass Index 24.13 09/11/2024 2:25 PM EDT Plan of Treatment Health Maintenance Due Date Last Done Comments Breast Cancer Screening 1968 Diabetes: Annual GFR (Glomerular Filtration Rate) 1968 Diabetes: Annual Foot Exam 1978 Diabetes: Annual Retina Eye Exam 1978 Hepatitis B Vaccines (1 of 3 - 19+ 3-dose series) 10/06/1987 Pneumococcal Vaccine: 50+ Years (2 of 2 - PCV) 08/30/2002 08/30/2001 Colorectal Cancer Screening: Colonoscopy 01/04/2024 HIV Screening 01/04/2024 Hepatitis C Screening 01/04/2024 Social Influencers of Health Screening 01/04/2024 COVID-19 Vaccine ( season) 2024 04/28/2022, 05/28/2021, 05/14/2021, Additional history exists DTaP,Tdap,and Td Vaccines (4 - Td or Tdap) 05/16/2024 05/16/2014, 12/29/2001, 02/27/1996 Depression Screening 08/01/2024 08/02/2023 Diabetes: Annual Urine Albumin-Creatinine Ratio (uACR) 09/12/2024 Diabetes: Blood Sugar Control Test (HGBA1C) 09/12/2024 02/02/2024 Influenza Vaccine (#1) 2025 4, 02/22/2023, 05/06/2022, Additional history exists Cervical Cancer Screening: Pap Smear 04/27/2026 04/27/2023 Cholesterol Screening (Lipid Panel) 09/21/2027 09/20/2022 Zoster Vaccines Completed 02/22/2023, 12/21/2022 HIB Vaccines Aged Out No longer eligi ble based on patient's age to complete this topic HPV Vaccines Aged Out No longer eligi ble based on patient's age to complete this topic Hepatitis A Vaccines Aged Out No long er eligible based on patient's age to complete this topic IPV Vaccines Aged Out No longer eligi ble based on patient's age to complete this topic MMR Vaccines Aged Out No longer eligi ble based on patient's age to complete this topic Meningococcal ACWY Vaccine Aged Out N o longer eligible based on patient's age to complete this topic Meningococcal B Vaccine Aged Out No l onger eligible based on patient's age to complete this topic RSV Immunization Patients Under 20 months Aged Out No longer eligible based on patient's age to complete this topic Varicella Vaccines Aged Out No longer eligible based on patient's age to complete this topic Procedures Procedure Name Priority Date/Time Associated Diagnosis Comments HI INJECTION SINGLE TENDON SHEATH OR LIGAMENT APONEUROSIS Routine 10/15/2024 3:00 PM EDT Trigger middle finger of left hand HI INJECTION SINGLE TENDON SHEATH OR LIGAMENT APONEUROSIS Routine 09/11/2024 2:30 PM EDT Trigger ring finger of right hand from Last 3 Months Results * HI INJECTION SINGLE TENDON SHEATH OR LIGAMENT APONEUROSIS (10/15/2024 3:00 PM EDT) Narrative Radha Barton PA - 10/15/2024 3:00 PM EDT SHERLYN Garcia 10/15/2024 3:07 PM Hand / UE Inj/Asp: L gabriela A1 for trigger finger Indications: pain Details: 25 G needle, volar approach Medications: 40 mg triamcinolone acetonide 40 mg/mL; 0.5 mL lidocaine 1 % Informed Consent: Laterality: Left Relevant images/test results available and reviewed: yes Health status cleared: Yes Procedure/treatment, purpose, treatment alternatives, risks/potential complications and benefits explained: yes Risk/complications/benefits details: Risks of infection, thinning of the skin and temporary skin discoloration discussed. Discussed risks of temporary increased pain after injection and swelling and mild redness at injection site for couple days. Explained occasionally cortisone injection can cause facial flushing temporarily. Benefits pain management. For postop injection pain ice, Tylenol and/or NSAIDs if patient can take Patient questions answered: yes Patient agrees, verbalizes understanding, and wants to proceed: yes Consent given by: Patient Informed consent discussion completed by Physician/EMANI with patient: Verbal Pre-procedure timeout performed: yes Radha PLATA IN CLINIC/BEDSIDE ORDERABLES Final Result * HI INJECTION SINGLE TENDON SHEATH OR LIGAMENT APONEUROSIS (09/11/2024 2:30 PM EDT) Jojo Branch MD - 09/11/2024 2:30 PM EDT SHERLYN Garcia 09/11/2024 3:38 PM Hand / UE Inj/Asp: R ring A1 for trigger finger Indications: pain Details: 25 G needle, volar approach Medications: 40 mg triamcinolone acetonide 40 mg/mL; 0.5 mL lidocaine 1 % Informed Consent: Laterality: Right Relevant images/test results available and reviewed: yes Health status cleared: Yes Procedure/treatment, purpose, treatment alternatives, risks/potential complications and benefits explained: yes Risk/complications/benefits details: Risks of infection, thinning of the skin and temporary skin discoloration discussed. Discussed risks of temporary increased pain after injection and swelling and mild redness at injection site for couple days. Explained occasionally cortisone injection can cause facial flushing temporarily. Benefits pain management. For postop injection pain ice, Tylenol and/or NSAIDs if patient can take Patient questions answered: yes Patient agrees, verbalizes understanding, and wants to proceed: yes Consent given by: Patient Informed consent discussion completed by Physician/EMANI with patient: Verbal Pre-procedure timeout performed: yes us Radha PLATA IN CLINIC/BEDSIDE ORDERABLES Final Result from Last 3 Months Insurance [facility] [address] [place] [id number] Care Teams Seismic Observer Relationship Specialty Start Date End Date Olman Sanchez MD [address] [place] [phone] PCP - General 10/07/13
== END 2024-11-15 14:08 | disposition home or self-care (01) ==
LOC: HO.US 14:07
PROVIDERS: PCP Internal Medicine; Visit Provider Internal Medicine
DX: M25.561 Pain in right knee (principal); E78.2 Mixed hyperlipidemia
CPT/HCPCS: 76882

== ENCOUNTER → 2024-11-15 14:54 | Outpatient (BNV) | payer OTHER, SELFPAY | PROVIDERS: PCP Internal Medicine; Visit Provider Radiology Diagnostic Radiology | DX: M71.21 Synovial cyst of popliteal space [Baker], right knee (principal); M25.561 Pain in right knee | CPT/HCPCS: 76882 ==

== ENCOUNTER 2024-12-13 11:45 | Outpatient (REF) | payer OTHER, SELFPAY ==
--- NOTE | ~2024-12-13 | XR_ITS ---
CLINICAL HISTORY: M25.569 - Pain in unspecified knee 3 view left knee Comparison: 12/13/2024 11:50 AM EDT: DX: XR KNEE RT 3V Findings: No fractures or dislocations. No significant arthritic change or erosions. No joint effusion. No radiopaque foreign body. IMPRESSION: 1. No acute findings. This document has been electronically signed by: Thelma Phillip MD on 12/13/2024 17:06:16
--- NOTE | ~2024-12-13 | XR_ITS ---
CLINICAL HISTORY: M25.569 - Pain in unspecified knee 3 view right knee Comparison: DX - XR KNEE LT 3V - 12/13/24 11:50 EDT Findings: No fractures or dislocations. No significant arthritic change or erosions. No joint effusion. No radiopaque foreign body. IMPRESSION: 1. No acute findings. This document has been electronically signed by: Thelma Phillip MD on 12/13/2024 17:04:04
== END 2024-12-13 11:46 | disposition home or self-care (01) ==
LOC: HO.HOSX 11:45
PROVIDERS: PCP Internal Medicine; Visit Provider Physician Assistant
DX: M17.0 Bilateral primary osteoarthritis of knee (principal); M25.561 Pain in right knee; M25.562 Pain in left knee
CPT/HCPCS: 73562

== ENCOUNTER 2024-12-13 11:45 | Outpatient (AMB) | payer OTHER, SELFPAY ==
--- NOTE | 2024-12-13 11:47 | MHC.OFFVIS ---
Vital Signs 12/13/24 11:53 Height 5 ft 5 in Weight 145 lb BMI 24.1 Handedness Right Intake Visit Reasons: New prob-B/L knee pain Intake Note: Katerina is a 54 year old female who presents today for a evaluation of her bilateral knee pain. No hx of surgery or injury. Patient reports ongoing pain for about a year but these past 3 months her pain has gotten a little worse. She notices her pain is worse on the right knee than the left knee. Patient reports standing for more that 15 min, walking and using the stairs makes her pain worse and some times numb. Patient has tried physical therapy at [facility] in [place] for her right knee. She states that she has a knee brace at home that gives her mild relief. Patient has tried taking muscle relaxer that she uses for her back that was prescribed by her PCP with mild relief. Allergies aspirin (ASPIRIN) Allergy (Severe, Verified 12/13/24 11:52) REDNESS/SWELLING, facial swelling SEAFOOD Allergy (Severe, Uncoded 07/18/23 14:30) REDNESS/SWELLING HPI HPI New prob-B/L knee pain: Details: Ms. Clifton is a 54-year-old female who presents to the office today for bilateral knee pain. She reports ongoing pain that waxes and wanes for the past year. The last 3 months her pain has significantly gotten worse. Right knee pain is greater than left knee. She reports that ambulating, stair climbing or standing further longer than 15 minutes worsens her pain. She has attended physical therapy at [facility] and [place] for the right knee with little relief. She has also tried knee bracing at home which has only given her mild relief. 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 No ecchymosis, erythema, or joint effusion. No tenderness to palpation along the medial or lateral joint lines. Full knee extension and flexion. NVI. Psych Appearance: grossly normal Mental Status: mental status grossly normal Attitude: cooperative Assessment & Plan Assessment & Plan (1) Osteoarthritis of knees, bilateral: Code(s): M17.0 - Bilateral primary osteoarthritis of knee Category: Medical Plan Ms. Clifton is a 54-year-old female who presents to the office today for bilateral knee pain. She reports ongoing pain that waxes and wanes for the past year. The last 3 months her pain has significantly gotten worse. Right knee pain is greater than left knee. She reports that ambulating, stair climbing or standing further longer than 15 minutes worsens her pain. She has attended physical therapy at [facility] and [place] for the right knee with little relief. She has also tried knee bracing at home which has only given her mild relief. While in the office today, the patient is experiencing less symptoms than usual as she has been on vacation. She returns back to work on 12/24/2024. I advised the patient that she should give about 1 week of work and we can see her the following weeks for possible right knee cortisone injection. Patient is amenable to this plan. Should she have resolution of pain she will cancel her appointment. Follow up in 1 week, sooner if needed. X-rays of bilateral knees which were obtained while in the office today and were reviewed by me, Priscilla Negron PA-C, revealed osteoarthritis Orders: Orders XR knee LT 3V Today M25.569 - Pain in unspecified knee XR knee RT 3V Today M25.569 - Pain in unspecified knee Coding Level of Care Code New Pt Level 3 (86956) Diagnoses Osteoarthritis of knees, bilateral M17.0
[2024-12-13 11:53] VITALS: BMI 24.1
--- OUTSIDE RECORDS SUMMARY | 2024-12-13 12:18 | XMS_ITS | Clinical Summary ---
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 USE IN EACH NOSTRIL DIRECTED 30 mL 1 023 Active pyridoxine (Vitamin B-6) 100 MG tablet Take 50 mg by mouth. 100 tablet 2 023 Active glucose blood (FREESTYLE LITE) test stripIndicati ons:Type 2 diabetes mellitus without complication, without long-term current use of insulin ([facility]) 1 each by Other route every 12 (twelve) hours. 100 each 11 023 Active triamcinolone (Kenalog) 0.1 % creamIndicati ons:Rash Apply topically if needed in the morning and at bedtime (pain and swelling). 45 g 2 024 Active glipiZIDE XL (Glucotrol XL) 5 MG 24 hr tablet TAKE 1 TABLET BY MOUTH EVERY DAY 90 tablet 1 025 Active atorvastatin (Lipitor) 80 MG tablet Take 1 tablet (80 mg) by mouth in the morning. 90 tablet 1 05/01/2 025 Active tiZANidine (Zanaflex) 2 MG tabletIndicat ions:Low back pain radiating to right leg TAKE 1 TABLET BY MOUTH EVERY 8 HOURS IF NEEDED FOR MUSCLE SPASMS 30 tablet Active Dulaglutide (Trulicity) 4.5 MG/0.5ML solution auto-injector Indications:T ype 2 diabetes mellitus without complication, without long-term current use of insulin ([facility]) Inject 4.5 mg under the skin 1 (one) time per week. INJECT ONE PEN (= 4.5MG) SUBCUTANEOUSLY ONCE A WEEK DIRECTED 2 mL 1 Active lisinopril 2.5 MG tabletIndicat ions:Type 2 diabetes mellitus without complication, without long-term current use of insulin ([facility]) Take 1 tablet (2.5 mg) by mouth in the morning. 90 tablet Active loratadine (Claritin) 10 MG tablet TAKE 1 TABLET (10 MG) BY MOUTH DAILY NEEDED FOR ALLERGIES 90 tablet Active metFORMIN (Glucophage) 1000 MG tabletIndicat ions:Type 2 diabetes mellitus without complication, without long-term current use of insulin ([facility]) TAKE 1 TABLET BY MOUTH TWICE A DAY WITH BREAKFAST AND DINNER 180 tablet Active lisinopril 2.5 MG tabletIndicat ions:Type 2 diabetes mellitus without complication, without long-term current use of insulin ([facility]) TAKE 1 TABLET BY MOUTH EVERY DAY IN THE MORNING 90 tablet 024 2024 Discontinued(R eorder (will not trigger notification to Pharmacy)) loratadine (Claritin) 10 MG tablet TAKE 1 TABLET (10 MG) BY MOUTH DAILY NEEDED FOR ALLERGIES 90 tablet 024 2024 Discontinued(R eorder (will not trigger notification to Pharmacy)) metFORMIN (Glucophage) 1000 MG tablet TAKE 1 TABLET BY MOUTH TWICE A DAY WITH BREAKFAST AND DINNER 180 tablet 025 2024 Discontinued(R eorder (will not trigger notification to Pharmacy)) hydrOXYzine HCl (Atarax) 25 MG tabletIndicat ions:Pruritus Take 1 tablet (25 mg) by mouth if needed in the morning, at noon, and at bedtime for itching. 90 tablet 025 2024 Discontinued(T herapy completed) Dulaglutide (Trulicity) 4.5 MG/0.5ML solution auto-injector Indications:T ype 2 diabetes mellitus without complication, without long-term current use of insulin ([facility]) Inject 4.5 mg under the skin 1 (one) time per week. INJECT ONE PEN (= 4.5MG) SUBCUTANEOUSLY ONCE A WEEK DIRECTED 2 mL 1 025 2024 Discontinued(R eorder (will not trigger notification to Pharmacy)) Active Problems Problem Noted Date Diagnosed Date Rash 02/02/2024 Assessment & Plan (11/15/2024 10:47 AM EDT): Patient with c/o new onset of pruritic rash left lower abdominal region x 1 month Exam suggestive of atopic dermatitis Seen by Dr Combs Assessment & Plan (02/02/2024 3:11 PM EDT): Patient with c/o new onset of pruritic rash left lower abdominal region x 1 month Exam suggestive of atopic dermatitis Plan: triamcinolone cream BID Referral to [facility] Adult derm Chronic right shoulder pain 08/02/2023 Assessment & Plan (02/02/2024 3:04 PM EDT): Pt with c/o right shoulder pain x 8 months On exam painful ROM Plain films right shoulder showed: There is mild osteoarthritic change of the right acromioclavicular joint. 2. There is mild calcific tendinitis of the right rotator cuff. PT evaluation did not help Referred to ortho last visit Assessment & Plan (11/01/2023 11:13 AM EDT): Pt with c/o right shoulder pain x 8 months On exam painful ROM Plain films right shoulder showed: There is mild osteoarthritic change of the right acromioclavicular joint. 2. There is mild calcific tendinitis of the right rotator cuff. PT evaluation did not help Will refer to ortho Assessment & Plan (08/02/2023 10:10 AM EDT): Pt with c/o right shoulder pain x 8 months On exam painful ROM Plan: Plain films right shoulder PT evaluation Chronic pain of right knee 08/02/2023 Assessment & Plan (11/15/2024 10:56 AM EDT): Patient here with c/o right knee pain On today's exam,there is a new palpable mass posterior right knee fluctuant , no redness, no warmth Previous plain films showed: There is mild osteoarthritic change of the lateral and patellofemoral joint space compartments. There is a small right joint effusion. No fracture or dislocation is seen. Previous visit pt was sent for PT eval, pt tells me she completed it Etiology. Exam seems suggestive of large baptiste's cyst Plan: Right Lower extremity US/ Doppler Ortho evaluation, might need drainage given the size Assessment & Plan (11/01/2023 11:04 AM EDT): No trauma On exam, no palpable abnormalities Plain films showed: There is mild osteoarthritic change of the lateral and patellofemoral joint space compartments. 2. There is a small right joint effusion. 3. No fracture or dislocation is seen. Previous visit pt was sent for PT eval, Assessment & Plan (08/02/2023 10:17 AM EDT): New onset, no trauma On exam, no palpable abnormalities Plan: Plain films, PT eval, Epicondylitis, lateral, right 03/24/2023 Assessment & Plan (08/02/2023 9:43 AM EDT): Pt with previous c/o right elbow pain Associated with movement pt uses her right arm for work Exam suggestive of epicondylitis Allergic to NSAIDS Plain film right elbow Mild degenerative changes. No displaced fracture. Seen by Ortho received steroid injection 03/2023 Assessment & Plan (03/24/2023 3:20 PM EST): Pt with c/o right elbow pain x 3 months Associated with movement pt uses her right arm for work Exam suggestive of epicondylitis Allergic to NSAIDS Plan: Plain film right elbow Referral to Ortho for consideration of steroid injection Trigger middle finger of left hand 03/24/2023 Assessment & Plan (08/02/2023 9:43 AM EDT): Seen by Ortho In the past benefit from a steroid injection Assessment & Plan (03/24/2023 3:34 PM EST): Exam indicative of this Will refer to Dr. feliz In the past benefit from a steroid injection Low back pain radiating to right leg 03/24/2023 Assessment & Plan (08/02/2023 9:45 AM EDT): Exam suggestive of sciatica Pt allergic to NSAIDS Plain films of LE spine 03/2023 showed; Multilevel lumbar spondylosis with advanced degenerative changes at L5-S1. Referred to PT previous visit Assessment & Plan (03/24/2023 3:34 PM EST): Exam suggestive of sciatica Pt allergic to NSAIDS I have recommended a muscle relaxant, plain films of LE spine and PT evaluation Asthma 09/09/2022 Assessment & Plan (11/15/2024 10:50 AM EDT): Here for a follow up No recent exacerbation Assessment & Plan (02/02/2024 3:08 PM EDT): No recent exacerbation Nasal polyp 09/09/2022 Assessment & Plan (09/09/2022 4:34 PM EDT): Pt has more than 1 month of ongoing nasal congestion ,facial pain, DICK Has large bl nasal polyps on exam Hx of sinus surgery per pt > 20 y ago thinks x similar problem Hx of ASA and NSAIDS allergy associated with her polyps -given failed nasal steroids tried x 1 mo will start low dose PO steroids 10 mg daily x 7 days and then 5 mg daily x another 7 days ( advised to monitor her CBGs and if in fasting > 180s to take her regular glipizide and an extra half tab while taking steroids) -normal saline spray, loratadine and nasal antihistamine -ENT referral today Nephrolithiasis 05/06/2022 Assessment & Plan (05/06/2022 9:04 AM EST): Pt here for a f/u Pt was diagnosed at [facility] with Kidney stones on both kidneys. Last seen by Dr. Remington Reeves 04/06/2022 , Recommended to undergo Right ESWL, She had it done 04/14/2022 [facility] 05/06/2022 Assessment & Plan (11/15/2024 10:48 AM EDT): Mammogram: 03/20/2024 NL Pap Smear: 04/27/2023 Negative Colonoscopy: 05/01/2019 showed hemorrhoids, 5 yr f/u recommended due to poor prep Dr Nunez Will refer back Assessment & Plan (08/02/2023 9:44 AM EDT): Mammogram: 02/25/2023 NL Pap Smear: 04/27/2023 Negative Colonoscopy: 05/01/2019 showed hemorrhoids, 5 yr f/u recommended due to poor prep Dr Nunez Assessment & Plan (03/24/2023 3:35 PM EST): Mammogram: 02/25/2023 NL Pap Smear: 03/03/2018, pt missed appointment today will reschedule Colonoscopy: 05/01/2019 showed hemorrhoids, 5 yr f/u recommended due to poor prep Dr Nunez Assessment & Plan (05/06/2022 9:21 AM EST): Mammogram: 02/19/2022 NL Pap Smear: 03/03/2018 Colonoscopy: 05/01/2019 showed hemorrhoids, 5 yr f/u recommended due to poor prep Dr Nunez Type 2 diabetes mellitus 05/13/2015 Assessment & Plan (11/15/2024 11:03 AM EDT): Patient is here for a follow up [...] last done on: 09/[address] Bloom (facilities custodian) Microalbumin checked on: 09/20/2022 was: 8 Pt on DEB inhibitor Lisinopril 2.5 mg po daily. Foot check risk of zero Pt reports compliance with Asa 81 mg po daily Pt advised to: adhere to diabetic diet check your blood sugars regularly check your feet on a daily basis Plan: Continue current regimen f/u 4 months Assessment & Plan (02/02/2024 3:14 PM EDT): Patient is here for a follow up in terms of her DM DM uncontrolled. Due to the fact that she is not injecting the trulicity due to lack of availability. I contacted our pharmacy and they are going to give it to her today She is on a regimen of: Metformin 1000 mg po BID, Glipizide XR 5 mg po daily, and Trulicity 4.5 q week, (off Lantus (per Dr Bravo) Hgb A1c on 02/02/2024 10.3 from 10.9 Pt continues under the care of Endocrinology Dr. Bravo also encouraged her to adhere to a diabetic diet and exercise Eye exam was last done on: 09/[address] Bloom (facilities custodian) Microalbumin checked on: 06/28/2019 was: 7 Pt on DEB inhibitor Lisinopril 2.5 mg po daily. Foot check risk of zero Pt reports compliance with Asa 81 mg po daily Pt advised to: adhere to diabetic diet check your blood sugars regularly check your feet on a daily basis Plan: sent a script for trulicity 4.5 mg once a week f/u 4 months Assessment & Plan (11/01/2023 11:09 AM EDT): Patient is here for a follow up in terms of her DM DM uncontrolled. Pt ran out of trulicity > 1 month ago She is on a regimen of: Metformin 1000 mg po BID, Glipizide XR 5 mg po daily, and Trulicity 3 q week, ( used to be on 4.5 mg but now on back order )off Lantus (per Dr Bravo) Hgb A1c on 11/01/2023 10.9 Pt continues under the care of Endocrinology Dr. Bravo also encouraged her to adhere to a diabetic diet and exercise Eye exam was last done on: 09/[address] Bloom (facilities custodian) Microalbumin checked on: 06/28/2019 was: 7 Pt on DEB inhibitor Lisinopril 2.5 mg po daily. Foot check risk of zero Pt reports compliance with Asa 81 mg po daily Pt advised to: adhere to diabetic diet check your blood sugars regularly check your feet on a daily basis Plan: sent a script for trulicity 4.5 mg once a week f/u 4 months Assessment & Plan (08/02/2023 10:19 AM EDT): Patient is here for a follow up in terms of her DM DM uncontrolled. She has been without trulicity due to the fact that is on back order She is on a regimen of: Metformin 1000 mg po BID, Glipizide XR 5 mg po daily, and Trulicity 4.5 q week, off Lantus (per Dr Bravo) Hgb A1c on 08/02/2023 10.8 Pt continues under the care of Endocrinology Dr. Bravo also encouraged her to adhere to a diabetic diet and exercise Eye exam was last done on: 09/[address] Bloom (facilities custodian) Microalbumin checked on: 06/28/2019 was: 7 Pt on DEB inhibitor Lisinopril 2.5 mg po daily. Foot check risk of zero Pt reports compliance with Asa 81 mg po daily Pt advised to: adhere to diabetic diet check your blood sugars regularly check your feet on a daily basis Today: I have recommended to use Trulicity 3 mg once a week since it is the only formulation avail;able, sent to [facility], pt to notify Dr Bravo f/u 4 months Assessment & Plan (03/24/2023 3:35 PM EST): Patient is here for a follow up in terms of her DM DM stable She is on a regimen of: Metformin 1000 mg po BID, Glipizide XR 5 mg po daily, and Trulicity 4.5 q week, off Lantus (per Dr Bravo) Hgb A1c on 03/24/2023: 8.7 From 9.0 Pt continues under the care of Endocrinology Dr. Bravo also encouraged her to adhere to a diabetic diet and exercise Eye exam was last done on: 09/[address] Bloom (facilities custodian) Microalbumin checked on: 06/28/2019 was: 7 Pt on DEB inhibitor Lisinopril 2.5 mg po daily. Foot check risk of zero Pt reports compliance with Asa 81 mg po daily Pt advised to: adhere to diabetic diet check your blood sugars regularly check your feet on a daily basis Today: I have recommended to continue current regimen f/u 4 months Assessment & Plan (11/02/2022 2:41 PM EDT): Patient is here for a follow up in terms of her DM Patient'S Glucometer shows average of: 182 DM stable She is on a regimen of: Metformin 1000 mg po BID, Glipizide XR 5 mg po daily, and Trulicity 4.5 q week, off Lantus (per Dr Bravo) Hgb A1c on 09/20/2022: 9.0 Pt continues under the care of Endocrinology Dr. Bravo also encouraged her to adhere to a diabetic diet and exercise Eye exam was last done on: 09/[address] Bloom (facilities custodian) Microalbumin checked on: 06/28/2019 was: 7 Pt on DEB inhibitor Lisinopril 2.5 mg po daily. Foot check risk of zero Pt reports compliance with Asa 81 mg po daily Pt advised to: adhere to diabetic diet check your blood sugars regularly check your feet on a daily basis Today: I have recommended to continue current regimen f/u 4 months Assessment & Plan (05/06/2022 9:05 AM EST): Patient is here for a follow up in terms of her DM Patient'S Glucometer shows average of: DM stable She is on a regimen of: Metformin 1000 mg po BID, Glipizide XR 5 mg po daily, and Trulicity 4.5 q week, off Lantus (per Dr Bravo) Hgb A1c on 05/06/2022 was: 8.5 Pt continues under the care of Endocrinology Dr. Bravo also encouraged her to adhere to a diabetic diet and exercise Eye exam was last done on: 09/[address] Bloom (facilities custodian) Microalbumin checked on: 06/28/2019 was: 7 Pt on DEB inhibitor Lisinopril 2.5 mg po daily. Foot check risk of zero Pt reports compliance with Asa 81 mg po daily Pt advised to: adhere to diabetic diet check your blood sugars regularly check your feet on a daily basis Today: I have recommended to continue current regimen f/u 4 months Chronic neck pain 02/27/2015 Assessment & Plan (05/06/2022 8:13 AM EST): Used to be under the care of the [facility] Initially seen her on 08/08/2014 with c/o moderate to severe lateral neck pain x 3 months. Not improving with rest and medical treatment. Radiates to her occipital region and left side of her face. I ordered a CTA of head and neck to r/o carotid dissection, her Insurance denied it. they approved a Carotid US that was negative for dissection. Pt was referred to [facility] for evaluation She was started on Pamelor Last seen 02/25/2015 Allergic rhinitis 07/16/2011 Mixed hyperlipidemia 07/16/2011 Assessment & Plan (11/15/2024 10:47 AM EDT): Patient here for a follow up Pt with elevated lipids. Most recent lipid profile from: Lab Results Component Value Date TRIG 09/20/2022 TRIG 172 07/03/2022 CHOL 176 09/20/2022 CHOL 177 07/03/2022 LDLCHOLCAL 96 09/20/2022 LDLCHOLCAL 102 07/03/2022 HDL 39 09/20/2022 HDL 41 07/03/2022 Currently on a regimen of: Atorvastatin 80mg po qhs. Continue current regimen for now. Repeat Lipid profile Assessment & Plan (02/02/2024 3:05 PM EDT): Patient here for a follow up Pt with elevated lipids. Most recent lipid profile from: Lab Results Component Value Date TRIG 09/20/2022 TRIG 172 07/03/2022 CHOL 176 09/20/2022 CHOL 177 07/03/2022 LDLCHOLCAL 96 09/20/2022 LDLCHOLCAL 102 07/03/2022 HDL 39 09/20/2022 HDL 41 07/03/2022 Currently on a regimen of: Atorvastatin 80mg po qhs. Continue current regimen for now. Repeat Lipid profile Assessment & Plan (11/02/2022 2:42 PM EDT): Patient here for a follow up Pt with elevated lipids. Most recent lipid profile from: 09/20/2022 has a total cholesterol of: 176 triglycerides of: 205 HDL of: 39 and LDL of: 96 Currently on a regimen of: Atorvastatin 80mg po qhs. Continue current regimen for now Assessment & Plan (05/06/2022 8:13 AM EST): Patient here for a follow up Pt with elevated lipids. Most recent lipid profile from: 02/02/2022 has a total cholesterol of: 139 triglycerides of: 154 HDL of: 37 and LDL of: 72 Currently on a regimen of: Atorvastatin 80mg po qhs. Continue current regimen for now Encounters Date Type Department Care Team Description 11/23/2024 Results Follow-Up [facility] [address] [place] [address] [place] [address] Olman Holguin MD US EXTREMITY NON-VASCULAR RIGHT LIMITED 11/15/2024 10:30 AM EDT Office Visit [facility] [place] [facility] [place] [address] Olman Holguin MD Mixed hyperlipidemia (Primary Dx); Type 2 diabetes mellitus without complication, without long-term current use of insulin ([facility]); Rash; Preventative health care; Mild intermittent asthma without complication; Chronic pain of right knee; Posterior right knee pain 11/15/2024 Orders Only [facility] [place] [facility] [place] [address] Olman Holguin MD 11/15/2024 Travel 11/14/2024 Telephone [facility] [place] [facility] [place] [address] Olman Holguin MD chart prep from Last 3 Months Immunizations Immunization Administration Dates Next Due Influenza Injectable Quadriv alant Preservative Free IIV4 MDCK 02/22/2023 Influenza injectable quadriv alent IIV4 with preservative 03/07/2018,01/27/2016 Influenza injectable quadriv alent preservative free 05/06/2022,02/27/2021,02/07/2020,03/22,05/13/2015 Influenza, IIV3, injectable 02/05/2014, 1 Influenza, Split (incl. megan fied surface antigen) 02/09/2012 Influenza, seasonal, injecta ble, preservative free 02/02/2024 Moderna Covid-19 Vaccine 12+ 05/28/2021,05/14/19 22 Pneumococcal Polysaccharide PPSV23 08/30/2001 TD (adult), 2 Lf tetanus tox oid, preservative free, adsorbed 12/29/2001,02/27/1996 Tdap 05/16/2014 Zoster, Recombinant 02/22/2023,12/21/2022 Family History Medical History Relation Name Comments Breast cancer Niece recurrence in contralateral breast Relation Name Status Comments Niece Other Social History Tobacco Use Types Packs/Day Years Used Date Smoking Tobacco: Never Passive Smoke Exposure: Never Smokeless Tobacco: Never Tobacco Cessation:Counseling Given: Not Answered Alcohol Use Standard Drinks/Week Comments Not Currently 0 (1 standard drink = 0.6 oz pur e alcohol) Depression Answer Date Recorded Patient Health Questionnaire-9 Score 0 11/15/2024 Patient Health Questionnaire-9 Score 0 11/15/2024 Last PHQ-9: Questionnaire Data Not on file 0 11/15/2024 Housing Stability Answer Date Recorded What is your housing situation today? I have yong seaman 08/02/[address] you li [...] the past 12 months, has t he [employer], oil or water company threatened to shut off services in your home? No 08/02/2023 Depression Answer Date Recorded Patient Health Questionnaire-2 Score 0 11/15/2024 Comments No Sex and Gender Information Value Date Recorded Sex Assigned at Female 03/08/2022 10:15 AM EDT Legal Sex Female 10:15 AM EDT Gender Identity Female 03/08/2022 10:15 AM EDT Sexual Orientation Straight 03/08/2022 10 :15 AM EDT Last Filed Vital Signs Vital Sign Reading [...] Mass Index 23.86 11/15/2024 10:43 AM EDT Plan of Treatment Health Maintenance Due Date Last Done Comments CT Colonography 1968 FIT DNA/Cologuard 1968 FIT 1968 FOBT 1968 HIV Screening 1970 Sigmoidoscopy 1968 Diabetes: Foot Exam 1978 Eye Exam 1978 Hepatitis C Screening 1986 Hepatitis B Vaccines (1 of 3 - 19+ 3-dose series) 10/06/1987 Pneumococcal Vaccine: 50+ Years (2 of 2 - PCV) 08/30/2002 08/30/2001 Diabetes: Urine Protein Screening 09/21/2023 09/20/2022, 07/03/2022, 05/07/2022, Additional history exists Lipid Panel 09/21/2023 09/20/2022, 06/10, 05/07/2022, Additional history exists COVID-19 Vaccine ( season) 2024 04/28/2022, 05/28/2021, 05/14/2021, Additional history exists Colonoscopy 05/01/2024 05/01/2019 Colorectal Cancer Screening 05/01/2024 DTaP/Tdap/Td Vaccines (2 - Td or Tdap) 05/16/2024 05/16/2014, 12/29/2001, 02/27/1996 SDOH Screening 08/01/2024 08/02/2023 Influenza Vaccine (#1) 2025 , 02/22/2023, 05/06/2022, Additional history exists Diabetes: Hemoglobin A1C 02/15/2025 025, 02/02/2024, 11/01/2023, Additional history exists Mammogram 03/20/2025 03/20/2024, 02/07, 02/19/2022, Additional history exists Alcohol/Substance Use Screening 11/15/2025 11/15/2024 Depression Screening 11/15/2025 11/15/2024, 11/16/19 Disability Screening 11/15/2025 11/15/2024 Tobacco Screening 11/15/2025 11/15/2024 Pap Smear 04/27/2026 04/27/2023, 02/27/2021 Cervical Cancer Screening 04/27/2028 HPV/Cotest 04/27/2028 04/27/2023, 02/07, 03/03/2018 RSV Patients and Patients Aged 60 years or older (1 - 1-dose 75+ series) 10/06/2043 Zoster Vaccines Completed 02/22/2023, 12/21/2022 HIB Vaccines [...] patient's age to complete this topic Meningococcal Vaccine Aged Out No jeremie adama eligible based on patient's age to complete this topic RSV under 20 months Aged Out No longe r eligible based on patient's age to complete this topic Rotavirus Vaccines Aged Out No longer eligible based on patient's age to complete this topic Procedures Procedure Name Priority Date/Time Associated Diagnosis Comments US EXTREMITY NON-VASCULAR RIGHT LIMITED Routine 11/15/2024 2:54 PM EDT POCT GLYCATED HEMOGLOBIN, TOTAL Routine 11/15/2024 11:00 AM EDT Type 2 diabetes mellitus without complication, without long-term current use of insulin ([facility]) POCT GLUCOSE Routine 11/15/2024 10:50 AM EDT Type 2 diabetes mellitus without complication, without long-term current use of insulin (CMS/HCC) BI MAMMOGRAM SCREENING TOMOSYNTHESIS BILATERAL Routine 03/20/2024 2:35 PM EST HPV MRNA E6/E7 REFLEX TO HPV 16, 18/45 Routine 04/27/2023 10:46 AM EST PAP SMEAR Routine 04/27/2023 10:46 AM EST Cervical cancer screening LIPID PANEL, STANDARD Routine 09/20/2022 6:24 AM EDT ALBUMIN, RANDOM URINE W/CREATININE Routine 09/20/2022 6:23 AM EDT HM COLONOSCOPY Routine 05/01/2019 from Last 3 Months or Most Recently Relevant to Health Maintenance Results * US EXTREMITY NON-VASCULAR RIGHT LIMITED (11/15/2024 2:54 PM EDT) Anatomical Region Laterality Modality Ultrasound 11/15/2024 2:54 PM EDT Narrative 11/15/2024 3:32 PM EDT [place] [id number] Ultrasound Report Signed Patient: Katerina Clifton MR#: [id number] : 1970 Acct:[id number] Age/Sex: 54 / F ADM Date: 11/15/24 Loc: HO.US Attending Dr: Olman Sanchez MD Ordering Physician: Olman Sanchez MD Date of Service: 11/15/24 Procedure(s): US Extremity Nonvas Limited RT Accession Number(s): [id number] cc: Olman Sanchez MD EXAMINATION: US EXTREMITY, NONVASCULAR CLINICAL INFORMATION: Palpable mass popliteal fossa,? Baptiste's cyst. COMPARISON: None available. TECHNIQUE: Grayscale and color Doppler ultrasound imaging of the right popliteal fossa was performed in the region of palpable lump. FINDINGS: There is a Baptiste's cyst the medial right popliteal fossa, measuring 5.4 x 1.8 x 4.2 cm. Incidental note made of a joint effusion within the right knee joint. US/US Extremity Nonvas Limited RT IMPRESSION: 1. Baptiste's cyst medial right popliteal fossa. 2. Right knee joint effusion. Electronically signed by: El Olmstead MD 11/15/2024 03:29 PM EDT RP Dictated By: El Olmstead MD Signed By: <Electronically signed by El Olmstead MD in OV> 11/15/24 1529 DD/ 1454 TD/TT: 11/15/24 1457 Scraper Burrer: Procedure Note Donotuseinterpreter, Image - 11/15/2024 [place] [address] Ultrasound Report Signed Patient: Katerina Clifton JMR#: [id number] 88 : 1970Acct:[id number] Age/Sex: 54 / FADM Date: 11/15/24 Loc: HO.US Attending Dr: Olman Sanchez MD Ordering Physician: Olman Sanchez MD Date of Service: 11/15/24 Procedure(s): US Extremity Nonvas Limited RT Accession Number(s): [id number] cc: Olman Sanchez MD EXAMINATION: US EXTREMITY, NONVASCULAR CLINICAL INFORMATION: Palpable mass popliteal fossa,? Baptiste's cyst. COMPARISON: None available. TECHNIQUE: Grayscale and color Doppler ultrasound imaging of the right popliteal fossa was performed in the region of palpable lump. FINDINGS: There is a Baptiste's cyst the medial right popliteal fossa, measuring 5.4 x 1.8 x 4.2 cm. Incidental note made of a joint effusion within the right knee joint. US/US Extremity Nonvas Limited RT IMPRESSION: 1. Baptiste's cyst medial right popliteal fossa. 2. Right knee joint effusion. Electronically signed by: El Olmstead MD 11/15/2024 03:29 PM EDT Dictated By: El Olmstead MD Signed By: <Electronically signed by El Olmstead MD in OV> 11/15/24 1529 DD/ 1454 TD/TT: 11/15/24 1457 Scraper Burrer: us Olman Lock MD IMG US PROCEDURES Tony grace Result - Final * (ABNORMAL) POCT HGB A1C (11/15/2024 11:00 AM EDT) Hemoglobin A1C 8.7(A) 4.0 - 5.7 % QC Media Lot # [id number] Lot# Expiration Date ,027 Blood 11/15/2024 11:0 0 AM EDT us Olman Lock MD POINT OF CARE TEST EN TER/EDIT ORDERABLES Final Result * POCT Glucose (11/15/2024 10:50 AM EDT) Glucose Blood, POC 155 60 - 200 mg/dL QC Media Lot # [id number] Lot# Expiration Date ,223 Blood Capillary blood specimen / Unknown 11/15/2024 10:50 AM EDT us Olman Lock MD POINT OF CARE TEST EN TER/EDIT ORDERABLES Final Result * BI Mammogram Screening Tomosynthesis Bilateral (03/20/2024 2:35 PM EST) Anatomical Region Laterality Modality Breast Bilateral Mammography 03/20/2024 2:35 PM EST Narrative 03/28/2024 4:01 PM EST [facility] [address] [place] [address] Mammography Report Signed Patient: Katerina Clifton MR#: [id number] 86 : 1970 Acct:[id number] Age/Sex: 53 / F ADM Date: 03/20/24 Loc: HO.MAMMO Attending Dr: Olman Sanchez MD Ordering Physician: Olman Sanchez MD Resu lts: 1Negative Date of Service: 03/20/24 Follow Up: 1 Year From Orig inal Mammogram Procedure(s): MM tomosynthesis screening BI Accession Number(s): [id number] cc: Olman Sanchez MD EXAMINATION: MM SCREENING DIGITAL BREAST TOMOSYNTHESIS, BILATERAL CLINICAL INFORMATION: Screening. Asymptomatic. COMPARISON: Mammography: Comparison is made with available priors TECHNIQUE: Digital breast mammography with tomosynthesis is performed in both the craniocaudal and mediolateral oblique views along with computer-aided detection (CAD). FINDINGS: The breasts are heterogeneously dense, which may obscure small masses (ACR BI-RADS breast composition Category c). There are no significant masses, abnormal calcifications, or other abnormalities. MM/MM tomosynthesis screening BI IMPRESSION: No mammographic evidence of malignancy. ASSESSMENT: BI-RADS BI-RADS 1 - Negative RECOMMENDATION: Routine annual mammography screening. 1 year F/U This examination should not preclude the clinical evaluation of a suspicious palpable abnormality. This patient's information was entered into a reminder system with a target due date for their next mammogram. Electronically signed by: Lynette Lopez DO 03/28/2024 03:58 PM EST Dictated By: Lynette Lopez DO Signed By: <Electronically signed by Lynette Lopez DO in OV> 03/28/24 1558 DD/ 1435 TD/TT: 03/20/24 1449 Scraper Burrer: Procedure Note Donotuseinterpreter, Image - 03/28/2024 [facility] [address] [place] [address] [place] [address] Mammography Report Signed Patient: Katerina Clifton JMR#: [id number] [birth year] : 1970Acct:[id number] Age/Sex: 53 / FADM Date: 03/20/24 Loc: HO.MAMMO Attending Dr: Olman Sanchez MD Ordering Physician: Olman Sanchez MDResu lts: 1Negative Date of Service: 03/20/24Follow Up: 1 Year From Orig inal Mammogram Procedure(s): MM tomosynthesis screening BI Accession Number(s): [id number] cc: Olman Sanchez MD EXAMINATION: MM SCREENING DIGITAL BREAST TOMOSYNTHESIS, BILATERAL CLINICAL INFORMATION: Screening. Asymptomatic. COMPARISON: Mammography: Comparison is made with available priors TECHNIQUE: Digital breast mammography with tomosynthesis is performed in both the craniocaudal and mediolateral oblique views along with computer-aided detection (CAD). FINDINGS: The breasts are heterogeneously dense, which may obscure small masses (ACR BI-RADS breast composition Category c). There are no significant masses, abnormal calcifications, or other abnormalities. MM/MM tomosynthesis screening BI IMPRESSION: No mammographic evidence of malignancy. ASSESSMENT: BI-RADS BI-RADS 1 - Negative RECOMMENDATION: Routine annual mammography screening. 1 year F/U This examination should not preclude the clinical evaluation of a suspicious palpable abnormality. This patient's information was entered into a reminder system with a target due date for their next mammogram. Electronically signed by: Lynette Lopez DO 03/28/2024 03:58 PM EST Dictated By: Lynette oLpez DO Signed By: <Electronically signed by Lynette Lopez DO in OV> 03/28/24 1558 DD/ 1435 TD/TT: 03/20/24 1449 Scraper Burrer: Olman Lock MD IMG BI PROCEDURES Fin al Result * HPV mRNA E6/E7 w/Reflex to HPV Genotypes 16, 18/45 (04/27/2023 10:46 AM EST) HPV nRNA E6/E7 Not Detected Not Detected [facility] Comment:Methodology: Transcr iption-Mediated AmplificationThis assay detects E6/E7 viral messenger RNA (mRNA) from 14high-risk HPV types (16,18,31,33,35,39,45,51,52,56,58,59,66,68).Cervical sources are required for HPV testing.If a vaginal source from a patient who has had atotal hysterectomy with removal of cervix wassubmitted, please contact the testing laboratoryfor alternative testing options.For additional information, please refer tohttp://[email or web address]/faq/BYI696n9(This link if provided for information/educational purposes only.)THIS TEST WAS PERFORMED AT:[facility] [employer] [place] [phone] TARIQ MD HPV mRNA E6/E7 [facility] HPV 16 RNA [facility] HPV 18/45 RNA [facility] 04/27/2023 10:4 6 AM EST 04/28/2023 8:20 AM EST Sarath Salgado [facility] CYTOLOGY ORDERABLES F inal Result [facility] [address] [place] [phone] * Pap Smear (04/27/2023 10:46 AM EST) Swab Cervix uteri structure / Unknown 04/27/2023 10:46 AM EST 04/28/2023 8:20 AM EST Narrative [facility] - 05/05/2023 1:48 PM EST ----- ------- Name: Katerina Clifton Age/Sex: 52/F : 1970 Unit#: [id number] Attend Dr: Re04/27/23 Status: PRE REF Location: [facility] Disch: ----- ------- SPEC : [id number] RECD: 04/28/23 STATUS: KHALIF BONILLALonny NUM: [id number] PHILIPP: 04/27/23-[address] [facility] [address]: SARATH SALGADO [facility] ENTERED: 04/28/23 SP TYPE: Pap Smr OT DR: ORDERED: Pap Smear Interpretation Satisfactory for evaluation. Negative for intraepithelial lesion or malignancy. HPV mRNA E6/E7: NOT DETECTED This assay detects E6/E7 viral messenger RNA (mRNA) from 14 high-risk HPV types (16, 18, 31, 33, 35, 39, 45, 51, 52, 56, 58, 59, 66, 68) HPV testing performed by [facility], [place], [place]. See reference laboratory portion of the EMR for entire report. Clinical Information LMP: Unknown date Previous PAP test: Unknown date/findings Material Received ThinPrep-Cervical ----- ------- Signed (signature on file) BECKA Ro (ASCP) 05/05/23 1348 ----- ------- END OF REPORT Sarath Salgado [facility] CYTOLOGY ORDERABLES F inal Result Performing Organization Address [facility] Co de Phone Number [facility] [address] [place], [place] [phone] * Lipid Panel, Standard (09/20/2022 6:24 AM EDT) Triglycerides 205 mg/dL [facility] Comment:Desirable Triglyceri de: less than 150 mg/dLBorderline High Triglyceride 150-199 mg/dLHigh Triglyceride: 200-499 mg/dLVery High Triglyceride: greater than or equal to 5OO mg/dL Cholesterol 176 mg/dL [facility] Comment:Desirable Cholestero l: less than 200 mg/dLBorderline High Cholesterol: 200-239 mg/dLHigh Cholesterol: greater than 239 mg/dL LDL Cholesterol Calculated 96 mg/dl [facility] Comment:Desirable LDL: less than 100 mg/dLNear Optimal/Above Optimal LDL: 110- 129 mg/dLBorderline High LDL: 130-159 mg/dLHigh LDL: 160-189 mg/dLVery High LDL: greater than or equal to 190 mg/dL HDL Cholesterol 39 mg/dL [facility] Comment:Desirable HDL: great er than 40 mg/dL Note: This HDL assay may give artificially low results in patients with liver disease. 09/20/2022 6:24 AM EDT 09/20/2022 6:24 AM EDT [facility] External Provider LAB BLO OD ORDERABLES Final Result Performing Organization Address City/[facility] Co de Phone Number [facility] [address] [place] [address] [phone] * Albumin, Random Urine W/Creatinine (09/20/2022 6:23 AM EDT) Creatinine, Urine 116.54 mg/dL [facility] Microalbumin Urine 8.0 mg/L [facility] Microalbum Creatinine Ratio Ur 6.8 ug/mg cr [facility] Comment:Albumin/Creatinine R atio Reference Ranges: Normal: < 30 ug/mg creatinine Microalbuminuria: 30 - 300 ug/mg creatinineClinical Albuminuria: > 300 ug/mg creatinine 09/20/2022 6:23 AM EDT 09/20/2022 7:08 AM EDT [facility] External Provider LAB URI NE ORDERABLES Final Result [facility] [address] [place] [address] [phone] * Hm Colonoscopy (05/01/2019) Colonoscopy Normal Normal 05/01/2019 Narrative Rowan Pandya - 05/01/2019 2:59 PM EST Recommended 5 year follow up Historical Provider HEALTH MAINTENANCE Edited Result - Final from Last 3 Months or Most Recently Relevant to Health Maintenance [place] [address] [place] [address] Care Teams Noodle Press Operator Relationship Specialty Start Date End Date Olman Holguin MD [address] [place] [phone] PCP - General Internal Medicine 12/11/13
--- OUTSIDE RECORDS SUMMARY | 2024-12-13 12:18 | XMS_ITS | Clinical Summary ---
Author Organization [address] [place] [address] [place] [phone] Phone Care Team Providers Care Professor Of Art Name Role Phone Olman Sanchez MD Primary [...] 3:00 PM EDT Office Visit Orthopedic Surgery [address] [phone] Radha Barton PA Trigger middle finger of left hand (Primary Dx) from Last 3 Months Surgical History Surgery Date Site/Laterality Comments HAND SURGERY Right SECTION Medical History Medical History Date Comments DM (diabetes mellitus) ([facility] V24, [facility] V28 ) Asthma Social History Tobacco Use [...] Influencers of Health Screening 01/04/2024 COVID-19 Vaccine (2023- season) 2024 04/28/2022, 05/28/2021, 05/14/2021, Additional history exists Depression Screening 05/09/2024 DTaP,Tdap,and Td Vaccines (4 - Td or Tdap) 05/16/2024 05/16/2014, 12/29/2001, 02/27/1996 Diabetes: Annual Urine Albumin-Creatinine Ratio (uACR) 09/12/2024 Diabetes: Blood Sugar Control Test (HGBA1C) 09/12/2024 02/02/2024 Influenza Vaccine (#1) 2025 , 02/22/2023, 05/06/2022, Additional history exists Cervical Cancer [...] Procedure Name Priority Date/Time Associated Diagnosis Comments CA INJECTION SINGLE TENDON SHEATH OR LIGAMENT APONEUROSIS Routine 10/15/2024 3:00 PM EDT Trigger middle finger of left hand from Last 3 Months Results * CA INJECTION SINGLE TENDON SHEATH OR LIGAMENT APONEUROSIS (10/15/2024 3:00 PM EDT) Narrative Radha Barton PA - 10/15/2024 3:00 PM EDT SHERLYN Garcia 10/15/2024 3:07 PM Hand / UE Inj/Asp: L long A1 for trigger finger Indications: pain Details: [...] Final Result from Last 3 Months Insurance [facility] Care Teams Professor Of Art Relationship Specialty Start Date End Date Olman Sanchez MD [address] [place] [address] [place] [phone] PCP - General 10/07/13
== END 2024-12-13 12:30 | disposition home or self-care (01) ==
LOC: HO.HOS 11:46
PROVIDERS: PCP Internal Medicine; Visit Provider Physician Assistant
DX: M17.0 Bilateral primary osteoarthritis of knee (principal)
CPT/HCPCS: 99203

== ENCOUNTER → 2024-12-13 11:50 | Outpatient (BNV) | payer OTHER, SELFPAY | PROVIDERS: PCP Internal Medicine; Visit Provider Radiology Diagnostic Radiology | DX: M25.562 Pain in left knee (principal); M25.561 Pain in right knee | CPT/HCPCS: 73562 ==

== ENCOUNTER 2025-01-01 12:32 | Outpatient (AMB) | payer OTHER, SELFPAY ==
--- NOTE | 2025-01-01 12:48 | A.OFFVIS_ITS ---
Vital Signs 01/01/25 12:54 Height 5 ft 5 in Weight 145 lb BMI 24.1 Intake Visit Reasons: INJ - Right knee cortisone injection (40) Intake Note: Katerina is a54 year old female who presents today for a cortisone injection for her right knee (40). Patient reports that she is having imense pain in her right knee. main concern today is if the fluid in her knee will interact with the injection. Allergies aspirin (ASPIRIN) Allergy (Severe, Verified 01/01/25 12:52) REDNESS/SWELLING, facial swelling SEAFOOD Allergy (Severe, Uncoded 07/18/23 14:30) REDNESS/SWELLING HPI HPI INJ - Right knee cortisone injection (40): Details: Ms. Clifton is a 54-year-old female who presents to the office today with right knee osteoarthritis. At her last appointment on 12/13/2024 we discussed the utilization of cortisone injection. Patient was interested at that time but was not having symptoms as she has been on vacation. She returned back to work on 12/24/2024 and has noticed a drastic increase in pain and reports associated swelling. 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 No ecchymosis, erythema, or joint effusion. No tenderness to palpation along the medial or lateral joint lines. Full knee extension and flexion. Palpable moderate sized Baptiste's cyst in the popliteal fossa. NVI. Office Procedures AMB Joint Injection/Aspiration Joint Injection/Aspiration Primary Site: right knee Prep: site was prepped using aseptic technique, ethochloride spray was applied and injection warnings given Injected: with 1 mL of (Dexa), with 3 mL of, 0.25% bupivacaine, in the joint and other (And 3 mL of 2% plain lidocaine) Approach Used: anterolateral Procedure: The patient tolerated the procedure well, but had some pain with the injection and there was some relief with the local anesthesia Coding - Large joint Procedure code (CPT) selection complete Assessment & Plan Assessment & Plan (1) Osteoarthritis of knees, bilateral: Code(s): M17.0 - Bilateral primary osteoarthritis of knee Category: Medical Plan The patient was offered a cortisone injection in the right knee. The patient was explained the risks, benefits, and alternatives to receiving this injection. After receiving consent for the injection, the patient had the procedure done while in the office today. The patient tolerated the procedure well with no complications. In regards to the patient's Baptiste cyst, I have advised that she should wait to see if the injection offers relief. Often times once the arthritic flare-up is managed the Baptiste cyst will resolve on its own. She understands and states in the past that the Baptiste cyst has waxed and waned based off of her knee pain. Should the Baptiste's cyst continue to be of concern she will contact our office and I will assist the patient and arranging for Interventional Radiology to drain this. Should the patient continue to have no relief after the cortisone injection in the knee the next step would be to petition the insurance company for coverage of gel injections. Follow-up will be PRN, or sooner if needed Coding Level of Care Code Est Pt Level 3 (06396) Diagnoses Osteoarthritis of knees, bilateral M17.0 CPT Codes Coding - Large joint: 91462 - Large joint ([id number])
[2025-01-01 12:54] VITALS: BMI 24.1
--- OUTSIDE RECORDS SUMMARY | 2025-01-01 13:18 | XMS_ITS | Encounter Summary ---
Author Organization [employer] Address [address] [place] [address] [place] [address] Care Team Providers Care Colorman Name Role Phone Olman Holguin MD Primary Care Provide r Reason for Visit * Reason Comments Med Refill Encounter Details Date Type Department Care Team ([facility] st Contact Info) Description 04/06/2024 Refill [facility] [address] [place], [place] [phone] Olman Holguin MD [address] [place], [place] [phone] Type 2 diabetes mellitus without complication, without long-term current use of insulin ([facility]) Social History Tobacco Use Types Packs/Day Years Used Date Smoking Tobacco: Never Passive Smoke Exposure: Never Smokeless Tobacco: Never Alcohol Use Standard Drinks/Week Comments Not Currently 0 (1 standard drink = 0.6 oz pur e alcohol) Depression Answer Date Recorded Patient Health Questionnaire-9 Score 5 08/02/2023 Patient Health Questionnaire-9 Score 5 08/02/2023 Last PHQ-9: Questionnaire Data Not on file 0 08/02/2023 Housing Stability Answer Date Recorded What is [...] Answer Date Recorded Patient Health Questionnaire-2 Score 1 08/02/2023 Comments No Sex and Gender Information Value Date Recorded Sex Assigned at Female 03/08/2022 10:15 AM EDT Legal Sex Female 10:15 AM EDT Gender Identity Female 03/08/2022 10:15 AM EDT Sexual Orientation Straight 03/08/2022 10 :15 AM EDT documented as of this encounter Plan of Treatment Not on file documented as of this encounter Visit Diagnoses Diagnosis Type 2 diabetes mellitus without complication, without long-term current use of insulin ([facility]) documented in this encounter Additional Health Concerns Assessment Noted Time PHQ-9 Depression Total Score: 5 08/02/19 24 10:02 AM EDT documented as of this encounter Care Teams Colorman Relationship Specialty Start Date End Date Olman Holguin MD [address] [place] [address] PCP - General Internal Medicine 12/11/13 documented as of this encounter
--- OUTSIDE RECORDS SUMMARY | 2025-01-01 13:18 | XMS_ITS | Encounter Summary ---
Author Organization [employer] Address [address] [place] [phone] Care Team Providers Care Mental Health Nurse Name Role Phone Olman Holguin MD Primary Care Provide r Encounter Details Date Type Department Care Team ([facility] st Contact Info) Description 09/15/2022 Abstract [facility] [address] [place], [place] [phone] Olman Holguin MD [address] [place] [address] Social History Tobacco Use Types Packs/Day Years Used Date Smoking Tobacco: Never Passive Smoke Exposure: Never Smokeless Tobacco: Never Alcohol Use Standard Drinks/Week Comments Not Currently 0 (1 standard drink = 0.6 oz pur e alcohol) Depression Answer Date Recorded Patient Health Questionnaire-2 Score 0 05/06/2022 Comments Unknown Sex and Gender Information Value Date Recorded Sex Assigned at Female 03/08/2022 10:15 AM EDT Legal Sex Female 10:15 AM EDT Gender Identity Female 03/08/2022 10:15 AM EDT Sexual Orientation Straight 03/08/2022 10 :15 AM EDT COVID-19 Exposure Response Date Recorded In the last 10 days, have yo u been in contact with someone who was confirmed or suspected to have Coronavirus/COVID-19? No / Unsure 09/09/2022 3:11 PM EDT documented as of this encounter Plan of Treatment Not on file documented as of this encounter Procedures Procedure Name Priority Date/Time Associated Diagnosis Comments HM COLONOSCOPY Routine 05/01/2019 documented in this encounter Results * Hm Colonoscopy (05/01/2019) Colonoscopy Normal Normal 05/01/2019 Rowan Baca - 05/01/2019 2:59 PM EST Recommended 5 year follow up us Historical Provider [facility] Edited Result - Final documented in this encounter Visit Diagnoses Not on filedocumented in this encounter Care Teams Mental Health Nurse Relationship Specialty Start Date End Date Olman Holguin MD [address] [place] [phone] PCP - General Internal Medicine 12/11/13 documented as of this encounter
--- OUTSIDE RECORDS SUMMARY | 2025-01-01 13:18 | XMS_ITS | Clinical Summary ---
Author Organization [employer] Address [address] [place] [address] 7 [place] [address] Care Team Providers Care Ux Design Manager Name Role Phone Olman Holguin MD Primary Care Provide r Allergies Active Allergy Reactions Criticality Noted Date Comments Aspirin Rash Low 05/16/2014 Nsaids Swelling Medium Other reaction(s): unspecified Shellfish Allergy 03/24/2023 Medications gabapentin (Neurontin) 100 MG capsule take 1 capsule by oral route at bedtime 1 Active Azelastine HCl 137 MCG/SPRAY solution ADMINISTER 1 SPRAY INTO EACH NOSTRIL 2 TIMES DAILY. USE IN EACH NOSTRIL DIRECTED 30 mL 1 3 Active pyridoxine (Vitamin B-6) 100 MG tablet Take 50 mg by mouth. 100 tablet 2 3 Active glucose blood (FREESTYLE LITE) test stripIndicatio ns:Type 2 diabetes mellitus without complication, without long-term current use of insulin ([facility]) 1 each by Other route every 12 (twelve) hours. 100 each 11 3 Active triamcinolone (Kenalog) 0.1 % creamIndicatio ns:Rash Apply topically if needed in the morning and at bedtime (pain and swelling). 45 g 2 4 Active glipiZIDE XL (Glucotrol XL) 5 MG 24 hr tablet TAKE 1 TABLET BY MOUTH EVERY DAY 90 tablet 1 5 Active atorvastatin (Lipitor) 80 MG tablet Take 1 tablet (80 mg) by mouth in the morning. 90 tablet 1 5 Active tiZANidine (Zanaflex) 2 MG tabletIndicati ons:Low back pain radiating to right leg TAKE 1 TABLET BY MOUTH EVERY 8 HOURS IF NEEDED FOR MUSCLE SPASMS 30 tablet 5 Active Dulaglutide (Trulicity) 4.5 MG/0.5ML solution auto-injectorI ndications:Typ e 2 diabetes mellitus without complication, without long-term current use of insulin (CMS/HCC) Inject 4.5 mg under the skin 1 (one) time per week. INJECT ONE PEN (= 4.5MG) SUBCUTANEOUSLY ONCE A WEEK DIRECTED 2 mL 1 5 Active lisinopril 2.5 MG tabletIndicati ons:Type 2 diabetes mellitus without complication, without long-term current use of insulin (CMS/HCC) Take 1 tablet (2.5 mg) by mouth in the morning. 90 tablet 5 Active loratadine (Claritin) 10 MG tablet TAKE 1 TABLET (10 MG) BY MOUTH DAILY NEEDED FOR ALLERGIES 90 tablet 5 Active metFORMIN (Glucophage) 1000 MG tabletIndicati ons:Type 2 diabetes mellitus without complication, without long-term current use of insulin (CMS/HCC) TAKE 1 TABLET BY MOUTH TWICE A DAY WITH BREAKFAST AND DINNER 180 tablet 5 Active Active Problems Problem Noted Date Diagnosed Date [...] dermatitis Plan: triamcinolone cream BID Referral to [facility] Adult derm Chronic right shoulder pain [...] indicative of this Will refer to Dr. felzi In the past benefit from a steroid [...] for a f/u Pt was diagnosed at [facility] with Kidney stones on both kidneys. Last seen by Dr. Remington Reeves 04/06/2022 , Recommended to undergo Right ESWL, She had it done 04/14/2022 [facility] health care 05/06/2022 Assessment & Plan (11/15/2024 10:48 AM EDT): Mammogram: 03/20/2024 NL Pap Smear: 04/27/2023 Negative Colonoscopy: 05/01/2019 showed hemorrhoids, 5 yr f/u recommended due to poor prep Dr Nunze Will refer back Assessment & Plan (08/02/2023 [...] last done on: 09/[address] Bloom (public works manager) Microalbumin checked on: 09/20/2022 was: 8 [...] last done on: 09/[address] Bloom (public works manager) Microalbumin checked on: 06/28/2019 was: 7 Pt [...] last done on: 09/[address] Bloom (public works manager) Microalbumin checked on: 06/28/2019 was: 7 Pt [...] last done on: 09/[address] Bloom (public works manager) Microalbumin checked on: 06/28/2019 was: 7 Pt [...] is the only formulation avail;able, sent to [facility], pt to notify Dr Bravo [...] last done on: 09/[address] Bloom (public works manager) Microalbumin checked on: 06/28/2019 was: 7 Pt [...] last done on: 09/[address] Bloom (public works manager) Microalbumin checked on: 06/28/2019 was: 7 Pt [...] last done on: 09/[address] Bloom (public works manager) Microalbumin checked on: 06/28/2019 was: 7 Pt [...] to be under the care of the [facility] Initially seen her on 08/08/2014 with c/o [...] negative for dissection. Pt was referred to [facility] for evaluation She was started on Pamelor [...] Department Care Team Description 11/23/2024 Results Follow-Up [facility] [address] [place] [address] Olman Holguin MD US EXTREMITY NON-VASCULAR RIGHT LIMITED 11/15/2024 10:30 AM EDT Office Visit [facility] [address] [place] [address] Olman Holguin MD Mixed hyperlipidemia (Primary Dx); Type 2 diabetes mellitus without complication, without long-term current use of insulin ([facility]); Rash; Preventative health care; Mild intermittent asthma without complication; Chronic pain of right knee; Posterior right knee pain 11/15/[address] [facility] [address] [place] [address] Olman Holguin MD 11/15/2024 Travel 11/14/[address] [facility] [address] [place] [address] Olman Holguin MD chart prep from Last [...] 11/15/2025 11/15/2024 Depression Screening 11/15/2025 11/15/2024, 11/16/19 25 Disability Screening 11/15/2025 11/15/2024 Tobacco Screening 11/15/2025 [...] Procedure Name Priority Date/Time Associated Diagnosis Comments XR KNEE 3 VIEWS LEFT Routine 12/13/2024 5:06 PM EDT XR KNEE 3 VIEWS RIGHT Routine 12/13/2024 5:04 PM EDT US EXTREMITY NON-VASCULAR RIGHT LIMITED Routine 11/15/2024 2:54 PM EDT POCT GLYCATED HEMOGLOBIN, TOTAL Routine 11/15/2024 11:00 AM EDT Type 2 diabetes mellitus without complication, without long-term current use of insulin ([facility]) POCT GLUCOSE Routine 11/15/2024 10:50 AM EDT Type 2 diabetes mellitus without complication, without long-term current use of insulin ([facility]) BI MAMMOGRAM SCREENING TOMOSYNTHESIS BILATERAL Routine 03/20/2024 [...] Recently Relevant to Health Maintenance Results * XR Knee 3 Views Left (12/13/2024 5:06 PM EDT) Anatomical Region Laterality Modality Lower Extremities, Knee Left Radiogra phic Imaging 12/13/2024 5:06 PM EDT Narrative 12/13/2024 5:07 PM EDT [facility] [address] [place] [address] XRay Report Signed Patient: Katerina Clifton MR#: [id number] 88 : 1970 Acct:[id number] Age/Sex: 54 / F ADM Date: 12/13/24 Loc: [facility] Attending Dr: Priscilla Negron PA-C Ordering Physician: Priscilla Negron PA-C Date of Service: 12/13/24 Procedure(s): XR knee LT 3V Accession Number(s): [id number] cc: Olman Sanchez MD; Priscilla Negron PA-C CLINICAL HISTORY: M25.569 - Pain in unspecified knee 3 view left knee Comparison: 12/13/2024 11:50 AM EDT: DX: XR KNEE RT 3V Findings: No fractures or dislocations. No significant arthritic change or erosions. No joint effusion. No radiopaque foreign body. IMPRESSION: 1. No acute findings. This document has been electronically signed by: Thelma Phillip MD on 12/13/2024 17:06:16 Dictated By: Thelma Phillip MD Signed By: <Electronically signed by Thelma Phillip MD in OV> 12/13/241706 DD/ 05 TD/TT: 12/13/241705 [employer] Le[employer] Pumper: Procedure Note Donotuseinterpreter, Image - 12/13/2024 [facility] [address] [place] [address] Drive [address] [place] [address] XRay Report Signed Patient: Katerina Clifton JMR#: [id number] 88 : 1970Acct:[id number] Age/Sex: 54 / FADM Date: 12/13/24 Loc: [facility] Attending Dr: Priscilla Negron PA-C Ordering Physician: Priscilla Negron PA-C Date of Service: 12/13/24 Procedure(s): XR knee LT 3V Accession Number(s): [id number] cc: Olman Sanchez MD; Priscilla Negron PA-C CLINICAL HISTORY: M25.569 - Pain in unspecified knee 3 view left knee Comparison: 12/13/2024 11:50 AM EDT: DX: XR KNEE RT 3V Findings: No fractures or dislocations. No significant arthritic change or erosions. No joint effusion. No radiopaque foreign body. IMPRESSION: 1. No acute findings. This document has been electronically signed by: Thelma Phillip MD on 12/13/2024 17:06:16 Dictated By: Thelma Phillip MD Signed By: <Electronically signed by Thelma Phillip MD in OV> 12/13/241706 DD/ 05 TD/TT: 12/13/241705 [employer] Lease Pumper: [facility] External Provider IMG XR PROCEDURES Final Result * XR Knee 3 Views Right (12/13/2024 5:04 PM EDT) Anatomical Region Laterality Modality Lower Extremities, Knee Right Radiogra [facility] Imaging 12/13/2024 5:04 PM EDT Narrative 12/13/2024 5:04 PM EDT [facility] [address] [place] [address] XRay Report Signed Patient: Katerina Clifton MR#: [id number] 88 : 1970 Acct:[id number] Age/Sex: 54 / F ADM Date: 12/13/24 Loc: [facility] Attending Dr: Priscilla Negron PA-C Ordering Physician: Priscilla Negron PA-C Date of Service: 12/13/24 Procedure(s): XR knee RT 3V Accession Number(s): [id number] cc: Olman Sanchez MD; Priscilla Negron PA-C CLINICAL HISTORY: M25.569 - Pain in unspecified knee 3 view right knee Comparison: DX - XR KNEE LT 3V - 12/13/24 11:50 EDT Findings: No fractures or dislocations. No significant arthritic change or erosions. No joint effusion. No radiopaque foreign body. IMPRESSION: 1. No acute findings. This document has been electronically signed by: Thelma Phillip MD on 12/13/2024 17:04:04 Dictated By: Thelma Phillip MD Signed By: <Electronically signed by Thelma Phillip MD in OV> 12/13/241703 DD/ 03 TD/TT: 12/13/241703 [employer] Lease Pumper: Procedure Note Donotuseinterpreter, Image - 12/13/2024 [facility] [address] [place] [address] XRay Report Signed Patient: Katerina Clifton JMR#: [id number] 88 : 1970Acct:[id number] Age/Sex: 54 / FADM Date: 12/13/24 Loc: HO.HOSX Attending Dr: Priscilla Negron PA-C Ordering Physician: Priscilla Negron PA-C Date of Service: 12/13/24 Procedure(s): XR knee RT 3V Accession Number(s): [id number] cc: Olman Sanchez MD; Priscilla Negron PA-C CLINICAL HISTORY: M25.569 - Pain in unspecified knee 3 view right knee Comparison: DX - XR KNEE LT 3V - 12/13/24 11:50 EDT Findings: No fractures or dislocations. No significant arthritic change or erosions. No joint effusion. No radiopaque foreign body. IMPRESSION: 1. No acute findings. This document has been electronically signed by: Thelma Phillip MD on 12/13/2024 17:04:04 Dictated By: Thelma Phillip MD Signed By: <Electronically signed by Thelma Phillip MD in OV> 12/13/241703 DD/ 03 TD/TT: 12/13/241703 [employer]ase Pumper: us [facility] External Provider IMG XR PROCEDURES Final Result * US EXTREMITY NON-VASCULAR RIGHT LIMITED (11/15/2024 2:54 PM EDT) Anatomical Region Laterality Modality Ultrasound 11/15/2024 2:54 PM EDT Narrative 11/15/2024 3:32 PM EDT [address] [address] Ultrasound Report Signed Patient: Katerina Clifton MR#: [id number] 88 : 1970 Acct:[id number] Age/Sex: 54 / F ADM Date: 11/15/24 Loc: HO.US Attending Dr: Olman Sanchez MD Ordering Physician: Olman Sanchez MD Date of Service: 11/15/24 Procedure(s): US Extremity Nonvas Limited RT Accession Number(s): [id number] cc: Olman Sanhcez MD EXAMINATION: US EXTREMITY, NONVASCULAR CLINICAL INFORMATION: [...] Olmstead MD in OV> 11/15/24 1529 DD/ 53 TD/TT: 11/15/241456 [employer] Lease Pumper: Procedure Note Donotsteveninterpreter, Image - 11/15/2024 [place] [address] Ultrasound Report Signed Patient: Katerina Clifton JMR#: [id number] 88 : 1970Acct:[id number] Age/Sex: 54 / FADM Date: 11/15/24 Loc: HO.US Attending Dr: Olman Sanchez MD Ordering Physician: Olman Sanchez MD Date of Service: 11/15/24 Procedure(s): US Extremity Nonvas Limited RT Accession Number(s): [id number] cc: Olman Sanchez MD EXAMINATION: US EXTREMITY, [...] Olmstead MD in OV> 11/15/24 1529 DD/ 53 TD/TT: 11/15/241456 [employer] Pumper: us Olman Lock MD IMG US PROCEDURES Tony grace Result - Final * (ABNORMAL) POCT HGB A1C (11/15/2024 11:00 AM EDT) Hemoglobin A1C 8.7(A) 4.0 - 5.7 % [employer] Lot # [id number] Lot# Expiration Date ,027 Blood 11/15/2024 11:0 0 AM EDT Olman Lock MD POINT OF CARE TEST EN TER/EDIT ORDERABLES Final Result * POCT Glucose (11/15/2024 10:50 AM EDT) Glucose Blood, POC 155 60 - 200 mg/dL [employer] Lot # [id number] Lot# Expiration Date , Blood Capillary blood specimen / Unknown 11/15/2024 10:50 AM EDT Olman Lock MD POINT OF CARE TEST EN TER/EDIT ORDERABLES Final Result * BI Mammogram Screening Tomosynthesis Bilateral (03/20/2024 2:35 PM EST) Anatomical Region Laterality Modality Breast Bilateral Mammography 03/20/2024 2:35 PM EST Narrative 03/28/2024 4:01 PM EST [facility] [address] [place] [address] Mammography Report Signed Patient: Katerina Clifton MR#: [id number] 88 : 1970 Acct:[id number] Age/Sex: 53 / F ADM Date: 03/20/24 Loc: BRIONNA Attending Dr: Olman Sanchez MD Ordering Physician: Olman Sanchez MD Resu lts: 1Negative Date of Service: 03/20/24 Follow Up: 1 Year From Orig inal Mammogram Procedure(s): MM tomosynthesis screening BI Accession Number(s): [id number] cc: Olman Sanchez MD EXAMINATION: MM SCREENING [...] by: Lynette Lopez DO 03/28/2024 03:58 PM [facility] Dictated By: Lynette Lopez DO Signed By: <Electronically signed by Lynette Lopez DO in OV> 03/28/24 1558 DD/ 1435 TD/TT: 03/20/24 1449 [employer] Pumper: Procedure Note Donotuseinterpreter, Image - 03/28/20[facility] [address] [place] [address] Mammography Report Signed Patient: Katerina Clifton JMR#: [id number] 88 : 1970Acct:[id number] Age/Sex: 53 / FADM Date: 03/20/24 Loc: HODorianMAMMO Attending Dr: Olman Sanchez MD Ordering Physician: Olman Sanchez MDResu lts: 1Negative Date of Service: 03/20/24Follow Up: 1 Year From Orig inal Mammogram Procedure(s): MM tomosynthesis screening BI Accession Number(s): [id number] cc: Olman Sanchez MD EXAMINATION: MM SCREENING [...] 03/28/24 1558 DD/ 1435 TD/TT: 03/20/24 1449 [employer]ase Pumper: Olman Lock MD IMG BI PROCEDURES Fin al Result * HPV mRNA E6/E7 w/Reflex to HPV Genotypes 16, 18/45 (04/27/2023 10:46 AM EST) HPV nRNA E6/E7 Not Detected Not Detected [facility] Comment:Methodology: Transcr iption-Mediated AmplificationThis assay detects E6/E7 viral messenger RNA (mRNA) from 14high-risk HPV types (16,18,31,33,35,39,45,51,52,56,58,59,66,68).Cervical sources are required for HPV testing.If a vaginal source from a patient who has had atotal hysterectomy with removal of cervix wassubmitted, please contact the testing laboratoryfor alternative testing options.For additional information, please refer tohttp://education.Artimi/faq/ZCO153t4(This link if provided for information/educational purposes only.)THIS TEST WAS PERFORMED AT:[facility] [place] [phone] TARIQ MD HPV mRNA E6/E7 [facility] HPV 16 RNA [facility] HPV 18/45 RNA TNP [facility] 04/27/2023 10:4 6 AM EST 04/28/2023 8:20 AM EST Sarath Salgado CNM LAB CYTOLOGY ORDERABLES F inal Result [facility] [address] [place] [phone] * Pap Smear (04/27/2023 10:46 AM EST) Swab Cervix uteri structure / Unknown 04/27/2023 10:46 AM EST 04/28/2023 8:20 AM EST Narrative [facility] - 05/05/2023 1:48 PM EST ----- ------- Name: Katerina Clifton Age/Sex: 52/F : 1970 Unit#: [id number] Attend Dr: Re04/27/23 Status: PRE REF Location: [facility] Disch: ----- ------- SPEC : [id number] RECD: 04/28/23 STATUS: KHALIF FRANCO NUM: [id number] PHILIPP: 04/27/23-1046 [facility] DR: SARATH SALGADO CNM ENTERED: 04/28/23 SP TYPE: Pap Smr OTHR DR: ORDERED: Pap Smear Interpretation Satisfactory for evaluation. Negative for intraepithelial lesion or malignancy. HPV mRNA E6/E7: NOT DETECTED This assay detects E6/E7 viral messenger RNA (mRNA) from 14 high-risk HPV types (16, 18, 31, 33, 35, 39, 45, 51, 52, 56, 58, 59, 66, 68) HPV testing performed by [employer], [place], [place]. See reference laboratory portion of the EMR for entire report. Clinical Information LMP: Unknown date Previous PAP test: Unknown date/findings Material Received ThinPrep-Cervical ----- ------- Signed (signature on file) BECKA Ro (ASCP) 05/05/23 1348 ----- ------- END OF REPORT us Sarath BLAKE LAB CYTOLOGY ORDERABLES F inal Result [facility] [address] [place] [phone] [phone] * Lipid Panel, Standard (09/20/2022 6:24 AM EDT) Triglycerides 205 mg/dL [facility] Comment:Desirable Triglyceri de: less than 150 mg/dLBorderline High Triglyceride 150-199 mg/dLHigh Triglyceride: 200-499 mg/dLVery High Triglyceride: greater than or equal to 5OO mg/dL Cholesterol 176 mg/dL [facility] Comment:Desirable Cholestero l: less than 200 mg/dLBorderline High Cholesterol: 200-239 mg/dLHigh Cholesterol: greater than 239 mg/dL LDL Cholesterol Calculated 96 mg/dl [facility] Comment:Desirable LDL: less than 100 mg/dLNear Optimal/Above Optimal LDL: 110- 129 mg/dLBorderline High LDL: 130-159 mg/dLHigh LDL: 160-189 mg/dLVery High LDL: greater than or equal to 190 mg/dL HDL Cholesterol 39 mg/dL [facility] Comment:Desirable HDL: great er than 40 mg/dL Note: This HDL assay may give artificially low results in patients with liver disease. 09/20/2022 6:24 AM EDT 09/20/2022 6:24 AM EDT [facility] External Provider LAB BLO OD ORDERABLES Final Result Performing Organization Address City/[facility] Co de Phone Number [facility] [address] [place] [phone] * Albumin, Random Urine W/Creatinine (09/20/2022 6:23 AM EDT) Creatinine, Urine 116.54 mg/dL [facility] Microalbumin Urine 8.0 mg/L [facility] Microalbum Creatinine Ratio Ur 6.8 ug/mg cr [facility] Comment:Albumin/Creatinine R atio Reference Ranges: Normal: < 30 ug/mg creatinine Microalbuminuria: 30 - 300 ug/mg creatinineClinical Albuminuria: > 300 ug/mg creatinine 09/20/2022 6:23 AM EDT 09/20/2022 7:08 AM EDT [facility] External Provider LAB URI NE ORDERABLES Final Result Performing Organization Address City/[facility]/ZIP Co de Phone Number [facility] [address] [place] [phone] * Colonoscopy (05/01/2019) Colonoscopy Normal Normal 05/01/2019 Rowan Baca - 05/01/2019 2:59 PM EST Recommended 5 year follow up us Historical Provider HEALTH MAINTENANCE Edited Result - Final from Last 3 Months or Most Recently Relevant to Health Maintenance Insurance , [address] [place] [phone] Care Teams Ux Design Manager Relationship Specialty Start Date End Date Olman Holguin MD [address] [place] [phone] PCP - General Internal Medicine 12/11/13
--- OUTSIDE RECORDS SUMMARY | 2025-01-01 13:18 | XMS_ITS | Encounter Summary ---
Author Organization [employer] Address [address] [place] [address] [place] [address] Care Team Providers Care Thread Cutter Tender Name Role Phone Olman Holguin MD Primary Care Provide r Reason for Visit * Reason Onset Date Comments Med Refill 12/28/2023 Encounter Details Date Type Department Care Team ([facility] st Contact Info) Description 12/28/2023 Refill [facility] [address] [place], [place] [phone] Olman Holguin MD [address] [place] [address] Type 2 diabetes mellitus without complication, without long-term current use of insulin ([facility]) Social History Tobacco Use Types Packs/Day Years [...] complication, without long-term current use of insulin ([facility]) documented in this encounter Additional Health Concerns Assessment Noted Time PHQ-9 Depression Total Score: 5 08/02/19 24 10:02 AM EDT documented as of this encounter Care Teams Thread Cutter Tender Relationship Specialty Start Date End Date Olman Holguin MD [address] [place] [address] PCP - General Internal Medicine 12/11/13 documented as of this encounter
--- OUTSIDE RECORDS SUMMARY | 2025-01-01 13:18 | XMS_ITS | Encounter Summary ---
Author Organization [employer] Address [address] [facility] 7 [place] [address] Care Team Providers Care Arrt Technologist Name Role Phone Olman Holguin MD Primary Care Provide r Reason for Visit * Reason Comments Med Change Request Encounter Details Date Type Department Care Team ([facility] st Contact Info) Description 08/12/2024 Refill [facility] [address] [place], [place] [phone] Mich Combs MD [address] [place] [address] Pruritus Social History Tobacco Use Types Packs/Day Years [...] as of this encounter Visit Diagnoses Diagnosis Pruritus Unspecified pruritic disorder documented in this encounter Additional Health Concerns Assessment Noted Time PHQ-9 Depression Total Score: 5 08/02/19 24 10:02 AM EDT documented as of this encounter Care Teams Arrt Technologist Relationship Specialty Start Date End Date Olman Holguin MD [address] [place] [address] PCP - General Internal Medicine 12/11/13 documented as of this encounter
--- OUTSIDE RECORDS SUMMARY | 2025-01-01 13:18 | XMS_ITS | Clinical Summary ---
Author Organization [address] [place] [address] [place] [phone] Phone Care Team Providers Care Skein Drier Name Role Phone Olman Sanchez MD Primary [...] 3:00 PM EDT Office Visit Orthopedic Surgery [address] [phone] Radha Barton PA Trigger middle finger of left hand (Primary Dx) from Last 3 Months Surgical History Surgery Date Site/Laterality Comments HAND SURGERY Right SECTION Medical History Medical History Date Comments DM (diabetes mellitus) ([facility] V24, [facility] V28 ) Asthma Social History Tobacco Use [...] Procedure Name Priority Date/Time Associated Diagnosis Comments [place] INJECTION SINGLE TENDON SHEATH OR LIGAMENT APONEUROSIS Routine 10/15/2024 3:00 PM EDT Trigger middle finger of left hand from Last 3 Months Results * [place] INJECTION SINGLE TENDON SHEATH OR LIGAMENT APONEUROSIS [...] Final Result from Last 3 Months Insurance [facility] Care Teams Skein Drier Relationship Specialty Start Date End Date Olman Sanchez MD [address] [place] [address] [place] [phone] PCP - General 10/07/13
== END 2025-01-01 13:17 | disposition home or self-care (01) ==
LOC: HO.HOS 12:32
PROVIDERS: PCP Internal Medicine; Visit Provider Physician Assistant
DX: M17.0 Bilateral primary osteoarthritis of knee (principal)
CPT/HCPCS: 20610; 99213

== ENCOUNTER → 2025-01-01 12:32 | Outpatient (BNVA) | payer OTHER, SELFPAY | PROVIDERS: PCP Internal Medicine; Visit Provider Physician Assistant | DX: M17.0 Bilateral primary osteoarthritis of knee (principal) | CPT/HCPCS: 20610; J0665; J1100; J2003 ==

== ENCOUNTER 2025-02-08 10:39 | Outpatient (REF) | payer OTHER, SELFPAY ==
--- NOTE | ~2025-02-08 | US_ITS ---
PROCEDURE: ULTRASOUND GUIDANCE FOR DRAINAGE OF BAPTISTE'S CYST. CLINICAL INFORMATION: Moderate size Baptiste's cyst. COMPARISON: Previous drainage 11/15/2024.. TECHNIQUE: After explaining ultrasound-guided Baptiste cyst drainage procedure, benefits and risk, a written consent was obtained. Patient was placed prone and pulmonary ultrasound imaging was performed to right posterior knee. An optimal site was selected and marked on the skin. The marked site was cleaned and draped with 2% chlorhexidine solution. 1% Xylocaine was inserted at marked site. Through a small skin incision a 18-gauge needle was inserted under sterile ultrasound guidance into the Baptiste's cyst. After observing fluid return the kidney needle was connected to vacuum bottle via connecting cannula. Approximately 20 mL of fluid was drained. Postprocedure repeat ultrasound imaging revealed no fluid remaining. Sterile dressing applied post procedure. Patient tolerated procedure extremely well. FINDINGS: On preliminary ultrasound imaging there is 5.6 x 1.3 x 1.5 cm Baptiste's cyst. Approximately 20 mL of fluid was drained from the Baptiste's cyst. None of this fluid was sent to lab. US/US drain soft tissue w imaging IMPRESSION: Successful ultrasound-guided therapeutic aspiration of Baptiste's cyst without immediate complications. Electronically signed by: Joss Simmons MD 02/14/2025 04:48 PM EDT
--- OUTSIDE RECORDS SUMMARY | 2025-02-08 11:36 | XMS_ITS | Clinical Summary ---
Author Organization [employer] Address [address] [place] [address] 7 [place] [address] Care Team Providers Care Cost Accounting Analyst Name Role Phone Olman Holguin MD Primary Care Provide r Allergies Active Allergy Reactions Criticality Noted Date Comments Aspirin Rash Low 05/16/2014 Nsaids Swelling Medium Other reaction(s): unspecified Shellfish Allergy 03/24/2023 Medications gabapentin (Neurontin) 100 MG capsule take 1 capsule by oral route at bedtime 02/28/20 21 Active Azelastine HCl 137 MCG/SPRAY solution ADMINISTER 1 SPRAY INTO EACH NOSTRIL 2 TIMES DAILY. USE IN EACH NOSTRIL DIRECTED 30 mL 1 10/06/19 23 Active pyridoxine (Vitamin B-6) 100 MG tablet Take 50 mg by mouth. 100 tablet 2 01/19/20 23 Active glucose blood (FREESTYLE LITE) test stripIndicati ons:Type 2 diabetes mellitus without complication, without long-term current use of insulin (HCC) 1 each by Other route every 12 (twelve) hours. 100 each 11 03/24/20 23 Active triamcinolone (Kenalog) 0.1 % creamIndicati ons:Rash Apply topically if needed in the morning and at bedtime (pain and swelling). 45 g 2 02/02/20 24 Active atorvastatin (Lipitor) 80 MG tablet Take 1 tablet (80 mg) by mouth in the morning. 90 tablet 1 09/07/19 25 Active tiZANidine (Zanaflex) 2 MG tabletIndicat ions:Low back pain radiating to right leg TAKE 1 TABLET BY MOUTH EVERY 8 HOURS IF NEEDED FOR MUSCLE SPASMS 30 tablet 09/07/19 25 Active Dulaglutide (Trulicity) 4.5 MG/0.5ML solution auto-injector Indications:T ype 2 diabetes mellitus without complication, without long-term current use of insulin ([facility]) Inject 4.5 mg under the skin 1 (one) time per week. INJECT ONE PEN (= 4.5MG) SUBCUTANEOUSLY ONCE A WEEK DIRECTED 2 mL 1 11/16/19 25 Active metFORMIN (Glucophage) 1000 MG tabletIndicat ions:Type 2 diabetes mellitus without complication, without long-term current use of insulin (HCC) TAKE 1 TABLET BY MOUTH TWICE A DAY WITH BREAKFAST AND DINNER 180 tablet 11/16/19 25 Active loratadine (Claritin) 10 MG tablet TAKE 1 TABLET (10 MG) BY MOUTH DAILY NEEDED FOR ALLERGIES 90 tablet 02/06/20 25 Active glipiZIDE XL (Glucotrol XL) 5 MG 24 hr tablet TAKE 1 TABLET BY MOUTH EVERY DAY 90 tablet 1 02/06/20 25 Active lisinopril 2.5 MG tabletIndicat ions:Type 2 diabetes mellitus without complication, without long-term current use of insulin ([facility]) TAKE 1 TABLET BY MOUTH IN THE MORNING 90 tablet 02/06/20 25 Active glipiZIDE XL (Glucotrol XL) 5 MG 24 hr tablet TAKE 1 TABLET BY MOUTH EVERY DAY 90 tablet 1 05/22/19 25 2024 Discontinued lisinopril 2.5 MG tabletIndicat ions:Type 2 diabetes mellitus without complication, without long-term current use of insulin ([facility]) Take 1 tablet (2.5 mg) by mouth in the morning. 90 tablet 11/16/19 25 2024 Discontinued loratadine (Claritin) 10 MG tablet TAKE 1 TABLET (10 MG) BY MOUTH DAILY NEEDED FOR ALLERGIES 90 tablet 11/16/19 25 2024 Discontinued Active Problems Problem Noted Date Diagnosed Date [...] triamcinolone cream BID Referral to [facility] Adult derm Chronic right shoulder pain [...] Previous visit pt was sent for PT brandi, pt tells me she completed it Etiology. [...] indicative of this Will refer to Dr. fleiz In the past benefit from a steroid [...] for a f/u Pt was diagnosed at [facility] with Kidney stones on both kidneys. Last seen by Dr. Remington Reeves 04/06/2022 , Recommended to undergo Right ESWL, She had it done 04/14/2022 [facility] health care 05/06/2022 Assessment & Plan (11/15/2024 [...] last done on: 09/[address] Bloom (metalworker) Microalbumin checked on: 09/20/2022 was: 8 Pt [...] last done on: 09/[address] 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 Initially seen her on 08/08/2014 with c/o [...] Encounters Date Type Department Care Team Description 02/02/2025 Refill [facility] [place] [address] Paola Nuñez MD 02/02/2025 Refill [facility] [place] [address] Olman Holguin MD Type 2 diabetes mellitus without complication, without long-term current use of insulin (CMS/HCC) 01/02/2025 Telephone [facility] [place] [address] Olman Holguin MD February Recall 11/23/2024 Results Follow-Up [facility] [place] [address] Olman Holguin MD US EXTREMITY NON-VASCULAR RIGHT LIMITED 11/15/2024 10:30 AM EDT Office Visit [facility] [place] [address] Olman Holguin MD Mixed hyperlipidemia (Primary Dx); Type 2 diabetes mellitus without complication, without long-term current use of insulin (CMS/HCC); Rash; Preventative health care; Mild intermittent asthma without complication; Chronic pain of right knee; Posterior right knee pain 11/15/2024 Orders Only [facility] [place] [address] Olman Holguin MD 11/15/2024 Travel 11/14/2024 Telephone [facility] [place] [address] Olman Holguin MD chart prep from Last [...] 09/21/2023 09/20/2022, 06/10, 05/07/2022, Additional history exists Colonoscopy 05/01/2024 05/01/2019 Colorectal Cancer Screening 05/01/2024 DTaP/Tdap/Td Vaccines (2 - Td or Tdap) 05/16/2024 05/16/2014, 12/29/2001, 02/27/1996 SDOH Screening 08/01/2024 08/02/2023 COVID-19 Vaccine ( season) 2025 04/28/2022, 05/28/2021, 05/14/2021, Additional history exists Influenza Vaccine (#1) 2025 , 02/22/2023, 05/06/2022, [...] complication, without long-term current use of insulin ([facility]) POCT GLUCOSE Routine 11/15/2024 10:50 AM EDT Type 2 diabetes mellitus without complication, without long-term current use of insulin ([facility]) BI MAMMOGRAM SCREENING TOMOSYNTHESIS BILATERAL Routine 03/20/2024 [...] Laterality Modality Lower Extremities, Knee Left [facility] 12/13/2024 5:06 PM EDT Narrative 12/13/2024 5:07 PM EDT [facility] [address] [place] [address] Drive [address] [place] [address] XRay Report Signed Patient: Katerina Clifton MR#: [id number] 88 : 1970 Acct:[id number] Age/Sex: 54 / F ADM Date: 12/13/24 Loc: HO.HOSX Attending Dr: Priscilla Negron PA-C Ordering Physician: Priscilla Negron PA-C Date of Service: 12/13/24 Procedure(s): XR knee LT 3V Accession Number(s): [id number] cc: Olman Sanchez MD; Priscilla Negron PA-C [...] in OV> 12/13/241706 DD/ 05 TD/TT: 12/13/241705 Director Of Assessment: Procedure Note Donotuseinterpreter, Image - 12/13/2024 [facility] [address] [place] [address] Drive [address] [place] [address] XRay Report Signed Patient: Katerina Clifton JMR#: [id number] 88 : 1970Acct:[id number] Age/Sex: 54 / FADM Date: 12/13/24 Loc: HO.HOSX Attending Dr: Priscilla Negron PA-C Ordering Physician: Priscilla Negron PA-C Date of Service: 12/13/24 Procedure(s): XR knee LT 3V Accession Number(s): [id number] cc: Olman Sanchez MD; Priscilla Negron PA-C [...] in OV> 12/13/241706 DD/ 05 TD/TT: 12/13/241705 Director Of Assessment: [facility] External Provider IMG XR PROCEDURES Final Result * XR Knee 3 Views Right (12/13/2024 5:04 PM EDT) Anatomical Region Laterality Modality Lower Extremities, Knee Right Radiogra phic Imaging 12/13/2024 5:04 PM EDT Narrative 12/13/2024 5:04 PM EDT [facility] [address] [place] [address] Drive [address] [place] [address] XRay Report Signed Patient: Katerina Clifton MR#: [id number] 88 : 1970 Acct:[id number] Age/Sex: 54 / F ADM Date: 12/13/24 Loc: SHIVANI Attending Dr: Priscilla Negron PA-C Ordering Physician: Priscilla Negron PA-C Date of Service: 12/13/24 Procedure(s): XR knee RT 3V Accession Number(s): [id number] cc: Olman Sanchez MD; Priscilla Negron PA-C [...] in OV> 12/13/241703 DD/ 03 TD/TT: 12/13/241703 Director Of Assessment: Procedure Note Donotuseinterpreter, Image - 12/13/2024 [facility] [address] [place] [address] XRay Report Signed Patient: Katerina Clifton JMR#: [id number] 88 : 1970Acct:[id number] Age/Sex: 54 / FADM Date: 12/13/24 Loc: HO.HOSX Attending Dr: Priscilla Negron PA-C Ordering Physician: Priscilla Negron PA-C Date of Service: 12/13/24 Procedure(s): XR knee RT 3V Accession Number(s): [id number] cc: Olman Sanchez MD; Priscilla Negron PA-C [...] in OV> 12/13/241703 DD/ 03 TD/TT: 12/13/241703 Director Of Assessment: [facility] External Provider IMG XR PROCEDURES Final Result * US EXTREMITY NON-VASCULAR RIGHT LIMITED (11/15/2024 2:54 PM EDT) Anatomical Region Laterality Modality Ultrasound 11/15/2024 2:54 PM EDT Narrative 11/15/2024 3:32 PM EDT [address] [address] Ultrasound Report Signed Patient: Katerina Clifton MR#: [id number] 88 : 1970 Acct:[id number] Age/Sex: 54 / F ADM Date: 11/15/24 Loc: HO.US Attending Dr: Olman Sanchez MD Ordering Physician: Olman Sanchez MD Date of Service: 11/15/24 Procedure(s): US Extremity Nonvas Limited RT Accession Number(s): [id number] cc: Olman Sanchez MD EXAMINATION: US EXTREMITY, [...] 11/15/24 1529 DD/ 1454 TD/TT: 11/15/24 1457 Director Of Assessment: Procedure Note Donotuseinterpreter, Image - 11/15/2024 [place] [address] Ultrasound Report Signed Patient: Katerina Clifton JMR#: [id number] 88 : 1970Acct:[id number] Age/Sex: 54 / FADM Date: 11/15/24 Loc: HO.US Attending Dr: Olman Sanchez MD Ordering Physician: Olman Sanchez MD Date of Service: 11/15/24 Procedure(s): US Extremity Nonvas Limited RT Accession Number(s): [id number] cc: Olman Sanchez MD EXAMINATION: US EXTREMITY, [...] 11/15/24 1529 DD/ 1454 TD/TT: 11/15/24 1457 Director Of Assessment: us Olman Lock MD IMG US PROCEDURES Tony grace Result - Final * (ABNORMAL) POCT HGB A1C (11/15/2024 11:00 AM EDT) Hemoglobin A1C 8.7(A) 4.0 - 5.7 % QC Media Lot # [id number] Lot# Expiration Date , Blood 11/15/2024 11:0 0 AM EDT us Olman Lock MD POINT OF CARE TEST EN TER/EDIT ORDERABLES Final Result * POCT Glucose (11/15/2024 10:50 AM EDT) Glucose Blood, POC 155 60 - 200 mg/dL QC Media Lot # [id number] Lot# Expiration Date ,025 Blood Capillary blood specimen / Unknown 11/15/2024 10:50 AM EDT us Olman Lock MD POINT OF CARE TEST EN TER/EDIT ORDERABLES Final Result * BI Mammogram Screening Tomosynthesis Bilateral (03/20/2024 2:35 PM EST) Anatomical Region Laterality Modality Breast Bilateral Mammography 03/20/2024 2:35 PM EST Narrative 03/28/2024 4:01 PM EST [facility] [address] [place] [address] [place] [address] Mammography Report Signed Patient: Katerina Clifton MR#: [id number] 88 : 1970 Acct:[id number] Age/Sex: 53 / F ADM Date: 03/20/24 Loc: HO.MAMMO Attending Dr: Olman Sanchez MD Ordering Physician: Olman Sanchez MD Resu lts: 1Negative Date of Service: 03/20/24 Follow Up: 1 Year From Orig inal Mammogram Procedure(s): MM tomosynthesis screening BI Accession Number(s): [id number] cc: Olman Sanchez MD EXAMINATION: MM SCREENING [...] by Lynette Lopez DO in OV> 03/28/24 155 DD/ 1435 TD/TT: 03/20/24 1449 Director Of Assessment: Procedure Note Donotuseinterpreter, Image - 03/28/2024 [facility] [address] [place] [address] Mammography Report Signed Patient: Katerina Clifton JMR#: [id number] 88 : 1970Acct:[id number] Age/Sex: 53 / FADM Date: 03/20/24 Loc: HO.MAMMO Attending Dr: Olman Sanchez MD Ordering Physician: Olman Sanchez MDResu lts: 1Negative Date of Service: 03/20/24Follow Up: 1 Year From Orig inal Mammogram Procedure(s): MM tomosynthesis screening BI Accession Number(s): [id number] cc: Olman Sanchez MD EXAMINATION: MM SCREENING [...] 03/28/24 1558 DD/ 1435 TD/TT: 03/20/24 1449 Director Of Assessment: us Olman Lock MD IMG BI PROCEDURES Fin al Result * HPV mRNA E6/E7 w/Reflex to HPV Genotypes 16, 18/45 (04/27/2023 10:46 AM EST) HPV nRNA E6/E7 Not Detected Not Detected [facility] Comment:Methodology: Transcr iption-Mediated AmplificationThis assay detects E6/E7 viral messenger RNA (mRNA) from 14high-risk HPV types (16,18,31,33,35,39,45,51,52,56,58,59,66,68).Cervical sources are required for HPV testing.If a vaginal source from a patient who has had atotal hysterectomy with removal of cervix wassubmitted, please contact the testing laboratoryfor alternative testing options.For additional information, please refer tohttp://education.GoTable/faq/UAZ369x7(This link if provided for information/educational purposes only.)THIS TEST WAS PERFORMED AT:[facility] [place] [phone] TARIQ MD HPV mRNA E6/E7 [facility] HPV 16 RNA [facility] HPV 18/45 RNA [facility] 04/27/2023 10:4 6 AM EST 04/28/2023 8:20 AM EST us Sarath Salgado [facility] CYTOLOGY ORDERABLES F inal Result [facility] [address] [place] [phone] * Pap Smear (04/27/2023 10:46 AM EST) Swab Cervix uteri structure / Unknown 04/27/2023 10:46 AM EST 04/28/2023 8:20 AM EST Narrative [facility] - 05/05/2023 1:48 PM EST ----- ------- Name: Katerina Clifton Age/Sex: 52/F : 1970 Unit#: [id number] Attend Dr: Re04/27/23 Status: PRE REF Location: [facility] Disch: ----- ------- SPEC : [id number] RECD: 04/28/23 STATUS: KHALIF FRANCO NUM: [id number] PHILIPP: 04/27/23-[address] [facility] [address]: SARATH SALGADO [facility] ENTERED: 04/28/23 SP TYPE: Pap Smr OT DR: ORDERED: Pap Smear Interpretation Satisfactory for evaluation. Negative for intraepithelial lesion or malignancy. HPV mRNA E6/E7: NOT DETECTED This assay detects E6/E7 viral messenger RNA (mRNA) from 14 high-risk HPV types (16, 18, 31, 33, 35, 39, 45, 51, 52, 56, 58, 59, 66, 68) HPV testing performed by [employer], [place], [place]. See reference laboratory portion of the EMR for entire report. Clinical Information LMP: Unknown date Previous PAP test: Unknown date/findings Material Received ThinPrep-Cervical ----- ------- Signed (signature on file) BECKA Ro (ASCP) 05/05/23 1348 ----- ------- END OF REPORT Sarath Salgado [facility] CYTOLOGY ORDERABLES F inal Result [facility] [address] [place] [phone] * Lipid Panel, Standard (09/20/2022 6:24 AM EDT) Triglycerides 205 mg/dL [facility] Comment:Desirable Triglyceri de: less than 150 mg/dLBorderline High Triglyceride 150-199 mg/dLHigh Triglyceride: 200-499 mg/dLVery High Triglyceride: greater than or equal to 5OO mg/dL Cholesterol 176 mg/dL [facility] Comment:Desirable Cholestero l: less than 200 mg/dLBorderline High Cholesterol: 200-239 mg/dLHigh Cholesterol: greater than 239 mg/dL LDL Cholesterol Calculated 96 mg/dl [facility] Comment:Desirable LDL: less than 100 mg/dLNear Optimal/Above Optimal LDL: 110- 129 mg/dLBorderline High LDL: 130-159 mg/dLHigh LDL: 160-189 mg/dLVery High LDL: greater than or equal to 190 mg/dL HDL Cholesterol 39 mg/dL [facility] Comment:Desirable HDL: great er than 40 mg/dL Note: This HDL assay may give artificially low results in patients with liver disease. 09/20/2022 6:24 AM EDT 09/20/2022 6:24 AM EDT [facility] External Provider LAB BLO OD ORDERABLES Final Result Performing Organization Address [facility] Co de Phone Number [facility] [address] [place] [address] [phone] * Albumin, Random Urine W/Creatinine (09/20/2022 6:23 AM EDT) Creatinine, Urine 116.54 mg/dL [facility] Microalbumin Urine 8.0 mg/L [facility] Microalbum Creatinine Ratio Ur 6.8 ug/mg cr [facility] Comment:Albumin/Creatinine R atio Reference Ranges: Normal: < 30 ug/mg creatinine Microalbuminuria: 30 - 300 ug/mg creatinineClinical Albuminuria: > 300 ug/mg creatinine 09/20/2022 6:23 AM EDT 09/20/2022 7:08 AM EDT [facility] External Provider LAB URI NE ORDERABLES Final Result Performing Organization Address [facility] Co de Phone Number [facility] [address] [place] [address] [phone] * Hm Colonoscopy (05/01/2019) Colonoscopy Normal Normal 05/01/2019 Narrative Rowan Pandya - 05/01/2019 2:59 PM EST Recommended 5 year follow up Historical Provider HEALTH MAINTENANCE Edited Result - Final from Last 3 Months or Most Recently Relevant to Health Maintenance Insurance [facility] Care Teams Cost Accounting Analyst Relationship Specialty Start Date End Date Olman Holguin MD [address] [place] [phone] PCP - General Internal Medicine 12/11/13
--- OUTSIDE RECORDS SUMMARY | 2025-02-08 11:36 | XMS_ITS | Clinical Summary ---
Author Organization [facility] Address [address] [place] [phone] Phone Care Team Providers Care Medical Reviewer Name Role Phone Olman Sanchez MD Primary [...] mouth 3 (three) times a day. Active Surgical History Surgery Date Site/Laterality Comments HAND SURGERY Right SECTION Medical History Medical History Date Comments DM (diabetes mellitus) (CMS/HCC V24, CMS/[facility] V28 ) Asthma Social History [...] Last Done Comments Breast Cancer Screening 1970 Colorectal Cancer Screening: Colonoscopy 1970 Diabetes: Annual GFR (Glomerular Filtration Rate) 1968 Diabetes: Annual Foot Exam 1978 Diabetes: Annual Retina Eye Exam 1978 Hepatitis B Vaccines (1 of 3 - 19+ 3-dose series) 10/06/1987 Pneumococcal Vaccine: 50+ Years (2 of 2 - PCV) 08/30/2002 08/30/2001 HIV Screening 01/04/2024 Hepatitis C Screening 01/04/2024 Social Influencers of Health Screening 01/04/2024 Depression Screening 05/09/2024 DTaP,Tdap,and Td Vaccines (4 - Td or Tdap) 05/16/2024 05/16/2014, 12/29/2001, 02/27/1996 Diabetes: Annual Urine Albumin-Creatinine Ratio (uACR) 09/12/2024 Diabetes: Blood Sugar Control Test (HGBA1C) 09/12/2024 02/02/2024 COVID-19 Vaccine ( season) 2025 04/28/2022, 05/28/2021, 05/14/2021, Additional history exists Influenza Vaccine (#1) 2025 4, 02/22/2023, 05/06/2022, Additional history exists Cervical Cancer Screening: Pap Smear 04/27/2026 04/27/2023 Cholesterol Screening (Lipid Panel) 09/21/2027 09/20/2022 RSV Immunization Adult Patients (1 - 1-dose 75+ series) 10/06/2043 Zoster [...] on patient's age to complete this topic Insurance Care Teams Medical Reviewer Relationship Specialty Start Date End Date Olman Sanchez MD [address] [place] [address] [place] [phone] PCP - General 10/07/13
--- OUTSIDE RECORDS SUMMARY | 2025-02-08 11:36 | XMS_ITS | Encounter Summary ---
Author Organization [employer] Address [address] [place] [address] [address] [place] [address] Care Team Providers Care Torch Straightener Name Role Phone Olman Holguin MD Primary Care Provide r Reason for Visit * Reason Comments Med Refill Encounter Details Date Type Department Care Team ([facility] st Contact Info) Description 02/02/2025 Refill [facility] MEDICINE [address] [place], [place] [phone] Paola Nuñez MD [address] [place] [address] Social History Tobacco Use Types Packs/Day Years [...] documented as of this encounter Visit Diagnoses Not on filedocumented in this encounter Additional Health Concerns Assessment Noted Time PHQ-9 Depression Total Score: 0 11/16/19 25 10:40 AM EDT documented as of this encounter Care Teams Torch Straightener Relationship Specialty Start Date End Date Olman Holguin MD [address] [place] [phone] PCP - General Internal Medicine 12/11/13 documented as of this encounter
--- OUTSIDE RECORDS SUMMARY | 2025-02-08 11:36 | XMS_ITS | Encounter Summary ---
Author Organization [employer] Address [address] [place] [address] Care Team Providers Care Entry Operator Name Role Phone Olman Holguin MD Primary Care Provide r Reason for Visit * Reason Onset Date Comments Med Refill 12/28/2023 Encounter Details Date Type Department Care Team (Late st Contact Info) Description 12/28/2023 Refill [facility] [address] [place], [place] [phone] Olman Holguin MD [address] [place] [address] Type 2 diabetes mellitus without complication, without long-term current use of insulin ([facility]) Social History Tobacco Use Types Packs/Day Years [...] without long-term current use of insulin (HCC) documented in this encounter Additional Health Concerns Assessment Noted Time PHQ-9 Depression Total Score: 5 08/02/19 24 10:02 AM EDT documented as of this encounter Care Teams Entry Operator Relationship Specialty Start Date End Date Olman Holguin MD [address] [place] [address] PCP - General Internal Medicine 12/11/13 documented as of this encounter
--- OUTSIDE RECORDS SUMMARY | 2025-02-08 11:36 | XMS_ITS | Encounter Summary ---
Author Organization [employer] Address [address] [place] [address] [place] [address] Care Team Providers Care Wire Frame Maker Name Role Phone Olman Holguin MD Primary Care Provide r Reason for Visit * Reason Comments Med Refill Encounter Details Date Type Department Care Team ([facility] st Contact Info) Description 04/06/2024 Refill [facility] [address] [place], [place] [phone] Olman Holguin MD [address] [place], [place] [phone] Type 2 diabetes mellitus without complication, without long-term current use of insulin ([facility]) Social History Tobacco Use Types [...] documented as of this encounter Care Teams Wire Frame Maker Relationship Specialty Start Date End Date Olman Holguin MD [address] [place] [phone] PCP - General Internal Medicine 12/11/13 documented as of this encounter
--- OUTSIDE RECORDS SUMMARY | 2025-02-08 11:36 | XMS_ITS | Encounter Summary ---
Author Organization [employer] Address [address] [place] [phone] Care Team Providers Care Farm Products Shipper Name Role Phone Olman Holguin MD Primary Care Provide r Encounter Details Date Type Department Care Team ([facility] st Contact Info) Description 09/15/2022 Abstract [facility] [address] [place], [place] [phone] Olman Holguin MD [address] [place] [address] Social History Tobacco Use Types Packs/Day Years [...] 5 year follow up us Historical Provider [facility] Edited Result - Final documented in this encounter Visit Diagnoses Not on filedocumented in this encounter Care Teams Farm Products Shipper Relationship Specialty Start Date End Date Olman Holguin MD [address] [place] [phone] PCP - General Internal Medicine 12/11/13 documented as of this encounter
--- OUTSIDE RECORDS SUMMARY | 2025-02-08 11:36 | XMS_ITS | Encounter Summary ---
Author Organization [employer] Address [address] [facility] 7 [place] [address] Care Team Providers Care Fall Internship Name Role Phone Olman Holguin MD Primary Care Provide r Reason for Visit * Reason Comments Med Change Request Encounter Details Date Type Department Care Team ([facility] st Contact Info) Description 08/12/2024 Refill [facility] MEDICINE [address] [place], [place] [phone] Mich Combs MD [address] [place] [address] Pruritus Social History Tobacco Use Types Packs/Day [...] documented as of this encounter Care Teams Fall Internship Relationship Specialty Start Date End Date Olman Holguin MD [address] [place] [address] PCP - General Internal Medicine 12/11/13 documented as of this encounter
--- OUTSIDE RECORDS SUMMARY | 2025-02-08 11:36 | XMS_ITS | Encounter Summary ---
Author Organization [employer] Address [address] [place] [address] [place] [address] Care Team Providers Care Delivery Agent Name Role Phone Olman Holguin MD Primary Care Provide r Reason for Visit * Reason Comments Med Refill Encounter Details Date Type Department Care Team ([facility] st Contact Info) Description 02/02/2025 Refill [facility] MEDICINE [address] [place], [place] [phone] Olman Holguin MD [address] [place], [place] [phone] Type 2 diabetes mellitus without complication, without long-term current use of insulin ([facility]) Social History Tobacco Use Types Packs/Day Years [...] documented as of this encounter Care Teams Delivery Agent Relationship Specialty Start Date End Date Olman Holguin MD [address] [place] [phone] PCP - General Internal Medicine 12/11/13 documented as of this encounter
[2025-02-08] MEDS: Lidocaine HCl 1 % MPF 5 ML VIAL SUBCUT (11:52)
== END 2025-02-08 10:40 | disposition home or self-care (01) ==
LOC: HO.US 10:39
PROVIDERS: PCP Internal Medicine; Visit Provider Physician Assistant
DX: M71.21 Synovial cyst of popliteal space [Baker], right knee (principal)
CPT/HCPCS: 10030; J2003

== ENCOUNTER → 2025-02-08 10:41 | Outpatient (BNV) | payer OTHER, SELFPAY | PROVIDERS: PCP Internal Medicine; Visit Provider Radiology Diagnostic Radiology | DX: M71.21 Synovial cyst of popliteal space [Baker], right knee (principal) | CPT/HCPCS: 10030 ==

== ENCOUNTER 2025-04-25 13:17 | Outpatient (REF) | payer OTHER, SELFPAY ==
--- OUTSIDE RECORDS SUMMARY | 2025-04-25 17:22 | XMS_ITS | Clinical Summary ---
Author Organization [employer] Address [address] [place] [address] 7 [place] [address] Care Team Providers Care Pharmacy Scheduler Name Role Phone Olman Holguin MD Primary [...] and swelling). 45 g 2 024 Active atorvastatin (Lipitor) 80 MG tablet Take 1 tablet (80 mg) by mouth in the morning. 90 tablet 1 025 Active metFORMIN (Glucophage) 1000 MG tabletIndicat ions:Type 2 diabetes mellitus without complication, without long-term current use of insulin (HCC) TAKE 1 TABLET BY MOUTH TWICE A DAY WITH BREAKFAST AND DINNER 180 tablet 025 Active loratadine (Claritin) 10 MG tablet TAKE 1 TABLET (10 MG) BY MOUTH DAILY NEEDED FOR ALLERGIES 90 tablet 025 Active glipiZIDE XL (Glucotrol XL) 5 MG 24 hr tablet TAKE 1 TABLET BY MOUTH EVERY DAY 90 tablet 1 025 Active lisinopril 2.5 MG tabletIndicat ions:Type 2 diabetes mellitus without complication, without long-term current use of insulin (HCC) TAKE 1 TABLET BY MOUTH IN THE MORNING 90 tablet 025 Active tiZANidine (Zanaflex) 2 MG tabletIndicat ions:Low back pain radiating to right leg TAKE 1 TABLET BY MOUTH EVERY 8 HOURS IF NEEDED FOR MUSCLE SPASMS 30 tablet 025 Active Dulaglutide (Trulicity) 4.5 MG/0.5ML solution auto-injector Indications:T ype 2 diabetes mellitus without complication, without long-term current use of insulin (HCC) Inject 4.5 mg under the skin 1 (one) time per week. INJECT ONE PEN (= 4.5MG) SUBCUTANEOUSLY ONCE A WEEK DIRECTED 2 mL 1 025 Active tiZANidine (Zanaflex) 2 MG tabletIndicat ions:Low back pain radiating to right leg TAKE 1 TABLET BY MOUTH EVERY 8 HOURS IF NEEDED FOR MUSCLE SPASMS 30 tablet 025 2024 Discontinued Dulaglutide (Trulicity) 4.5 MG/0.5ML solution auto-injector Indications:T ype 2 diabetes mellitus without complication, without long-term current use of insulin (HCC) Inject 4.5 mg under the skin 1 [...] dermatitis Plan: triamcinolone cream BID Referral to [facility] Adult derm Chronic right shoulder pain [...] it Etiology. Exam seems suggestive of large bolaños's cyst Plan: Right Lower extremity US/ Doppler [...] for a f/u Pt was diagnosed [place] [facility] with Kidney stones on both kidneys. Last seen by Dr. Remington Reeves 04/06/2022 , Recommended to undergo Right ESWL, She had it done 04/14/2022 Preventative health care 05/06/2022 Assessment & Plan (11/15/2024 [...] last done on: 09/[address] Bloom (molding engineer) Microalbumin checked on: 09/20/2022 was: 8 Pt [...] last done on: 09/[address] Bloom (molding engineer) Microalbumin checked on: 06/28/2019 was: 7 Pt [...] last done on: 09/[address] Bloom (molding engineer) Microalbumin checked on: 06/28/2019 was: 7 Pt [...] last done on: 09/[address] Bloom (molding engineer) Microalbumin checked on: 06/28/2019 was: 7 Pt [...] is the only formulation avail;able, sent to [facility] Pharmacy, pt to notify Dr Bravo [...] last done on: 09/[address] Bloom (molding engineer) Microalbumin checked on: 06/28/2019 was: 7 Pt [...] last done on: 09/[address] Bloom (molding engineer) Microalbumin checked on: 06/28/2019 was: 7 Pt [...] last done on: 09/[address] Bloom (molding engineer) Microalbumin checked on: 06/28/2019 was: 7 Pt [...] Encounters Date Type Department Care Team Description 03/29/2025 Refill [facility] MEDICINE [address] [place] [address] Olman Holguin MD Type 2 diabetes mellitus without complication, without long-term current use of insulin ([facility]) 03/29/2025 Refill [facility] MEDICINE [address] [place] [address] Paola Nuñez MD Low back pain radiating to right leg; Type 2 diabetes mellitus without complication, without long-term current use of insulin ([facility]) 02/08/2025 Orders Only [facility] External Provider, [facility] 02/02/2025 Refill [facility] MEDICINE [address] [place] [address] Paola Nuñez MD 02/02/2025 Refill [facility] MEDICINE [address] [place] [address] Olman Holguin MD Type 2 diabetes mellitus without complication, without long-term current use of insulin ([facility]) from Last 3 Months Immunizations Immunization Administration [...] (2 of 2 - PCV) 08/30/2002 08/30/2001 RSV Patients and Patients Aged 60 years or older (1 - Risk 50-74 years 1-dose series) 2018 Diabetes: Urine Protein Screening 09/21/2023 09/20/2022, 07/03/2022, [...] Screening 04/27/2028 HPV/Cotest 04/27/2028 04/27/2023, 02/07, 03/03/2018 Zoster Vaccines Completed 02/22/2023, 12/21/2022 HIB Vaccines [...] on patient's age to complete this topic Goals Goal Patient Goal Type Associated Problems Recent Progress Patient-Stated? Author Help patients manage their type 2 diabetes Care Plan Help patients manage their type 2 diabetes No Alida Perales LPN Weekly blood pressure task Care Plan Weekly blood pressure task No Alida Perales LPN Help patients manage their type 2 diabetes Care Plan Help patients manage their type 2 diabetes No Alida Perales LPN Patient has chronic kidney disease Care Plan Patient has chronic kidney disease No Alida Perales LPN Weekly blood pressure task Care Plan Weekly blood pressure task No Alida Perales LPN Patient has chronic kidney disease Care Plan Patient has chronic kidney disease No Alida Perales LPN Procedures Procedure Name Priority Date/Time Associated Diagnosis Comments US DRAIN SOFT TISSUE W IMAGING Routine 02/08/2025 11:04 AM EDT POCT GLYCATED HEMOGLOBIN, TOTAL Routine 11/15/2024 11:00 AM EDT Type 2 diabetes mellitus without complication, without long-term current use of insulin ([facility]) BI MAMMOGRAM SCREENING TOMOSYNTHESIS BILATERAL Routine [...] Relevant to Health Maintenance Results * US DRAIN SOFT TISSUE W IMAGING (02/08/2025 11:04 AM EDT) Anatomical Region Laterality Modality Abdomen Ultrasound 02/08/2025 11:0 4 AM EDT Narrative 02/14/2025 4:51 PM EDT [place] [address] Ultrasound Report Signed Patient: Katerina Clifton MR#: [id number] 88 : 1970 Acct:[id number] Age/Sex: 54 / F ADM Date: 02/08/25 Loc: HO.US Attending Dr: Priscilla Negron PA-C Ordering Physician: Priscilla Negron PA-C Date of Service: 02/08/25 Procedure(s): US drain soft tissue w imaging Accession Number(s): [id number] cc: Olman Sanchez MD; Priscilla Negron PA-C Reason for Exam: M71.21 - Synovial cyst of popliteal space [Bolaños], right knee PROCEDURE: ULTRASOUND GUIDANCE FOR DRAINAGE OF BOLAÑOS'S CYST. CLINICAL INFORMATION: Moderate size Bolaños's cyst. COMPARISON: Previous drainage 11/15/2024.. TECHNIQUE: After explaining ultrasound-guided Bolaños cyst drainage procedure, benefits and risk, a written consent was obtained. Patient was placed prone and pulmonary ultrasound imaging was performed to right posterior knee. An optimal site was selected and marked on the skin. The marked site was cleaned and draped with 2% chlorhexidine solution. 1% Xylocaine was inserted at marked site. Through a small skin incision a 18-gauge needle was inserted under sterile ultrasound guidance into the Bolaños's cyst. After observing fluid return the kidney needle was connected to vacuum bottle via connecting cannula. Approximately 20 mL of fluid was drained. Postprocedure repeat ultrasound imaging revealed no fluid remaining. Sterile dressing applied post procedure. Patient tolerated procedure extremely well. FINDINGS: On preliminary ultrasound imaging there is 5.6 x 1.3 x 1.5 cm Bolaños's cyst. Approximately 20 mL of fluid was drained from the Bolaños's cyst. None of this fluid was sent to lab. US/US drain soft tissue w imaging IMPRESSION: Successful ultrasound-guided therapeutic aspiration of Bolaños's cyst without immediate complications. Electronically signed by: Joss Simmons MD 02/14/2025 04:48 PM EDT RP Dictated By: Joss Simmons MD Signed By: <Electronically signed by Joss Simmons MD in OV> 02/14/25 1648 DD/ 1104 TD/TT: 02/08/25 1122 Agricultural Technician: [facility] Procedure Note Donotuseinterpreter, Image - 02/14/[address] [address] Ultrasound Report Signed Patient: Katerina Clifton JMR#: [id number] 88 : 1970Acct:[id number] Age/Sex: 54 / FADM Date: 02/08/25 Loc: .US Attending Dr: Priscilla Negron PA-C Ordering Physician: Priscilla Negron PA-C Date of Service: 02/08/25 Procedure(s): US drain soft tissue w imaging Accession Number(s): [id number] cc: Olman Sanchez MD; Priscilla Negron PA-C Reason for Exam: M71.21 - Synovial cyst of popliteal space [Bolaños], rightknee PROCEDURE: ULTRASOUND GUIDANCE FOR DRAINAGE OF BOLAÑOS'S CYST. CLINICAL INFORMATION: Moderate size Bolaños's cyst. COMPARISON: Previous drainage 11/15/2024.. TECHNIQUE: After explaining ultrasound-guided Bolaños cyst drainage procedure, benefits and risk, a written consent was obtained. Patient was placed prone and pulmonary ultrasound imaging was performed to right posterior knee. An optimal site was selected and marked on the skin. The marked site was cleaned and draped with 2% chlorhexidine solution. 1% Xylocaine was inserted at marked site. Through a small skin incision a 18-gauge needle was inserted under sterile ultrasound guidance into the Bolaños's cyst. After observing fluid return the kidney needle was connected to vacuum bottle via connecting cannula. Approximately 20 mL of fluid was drained. Postprocedure repeat ultrasound imaging revealed no fluid remaining. Sterile dressing applied post procedure. Patient tolerated procedure extremely well. FINDINGS: On preliminary ultrasound imaging there is 5.6 x 1.3 x 1.5 cm Bolaños's cyst. Approximately 20 mL of fluid was drained from the Bolaños's cyst. None of this fluid was sent to lab. US/US drain soft tissue w imaging IMPRESSION: Successful ultrasound-guided therapeutic aspiration of Bolaños's cyst without immediate complications. Electronically signed by: Joss Simmons MD 02/14/2025 04:48 PM EDT Dictated By: Joss Simmons MD Signed By: <Electronically signed by Joss Simmons MD in OV> 02/14/25 1648 DD/ 1104 TD/TT: 02/08/25 1122 Agricultural Technician: [facility] External Provider IMG US PROCEDURES Final Result * (ABNORMAL) POCT HGB A1C (11/15/2024 11:00 AM EDT) Hemoglobin A1C 8.7(A) 4.0 - 5.7 % QC Media Lot # [id number] Lot# Expiration Date [id number] Blood 11/15/2024 11:0 0 AM EDT Olman Lock MD POINT OF CARE TEST EN TER/EDIT ORDERABLES Final Result * BI Mammogram Screening Tomosynthesis Bilateral (03/20/2024 2:35 PM EST) Anatomical Region Laterality Modality Breast Bilateral Mammography 03/20/2024 2:35 PM EST Narrative 03/28/2024 4:01 PM EST [facility] [address] [place] [address] Mammography Report Signed Patient: Katerina Clifton MR#: [id number] 88 : 1970 Acct:[id number] Age/Sex: 53 / F ADM Date: 03/20/24 Loc: HO.MAMMO Attending Dr: Olman Sanchez MD Ordering Physician: Olman Sanchez MD Resu lts: 1Negative Date of Service: 03/20/24 Follow Up: 1 Year From Orig ina Mammogram Procedure(s): MM tomosynthesis screening BI Accession Number(s): [id number] cc: Olman Sanchez MD EXAMINATION: MM SCREENING [...] Lynette Lopez DO 03/28/2024 03:58 PM EST RP Dictated By: Lynette Lopez DO Signed By: <Electronically signed by Lynette Lopez DO in OV> 03/28/24 1558 DD/ 1435 TD/TT: 03/20/24 1449 Agricultural Technician: Procedure Note Donotuseinterpreter, Image - 03/28/2024 [facility] [address] [place] [address] Mammography Report Signed Patient: Katerina Clifton JMR#: [id number] 88 : 1970Acct:[id number] Age/Sex: 53 / FADM Date: 03/20/24 Loc: HO.MAMMO Attending Dr: Olman Sanchez MD Ordering Physician: Olman Sanchez MDResu lts: 1Negative Date of Service: 03/20/24Follow Up: 1 Year From Orig inal Mammogram Procedure(s): MM tomosynthesis screening BI Accession Number(s): [id number] cc: Olman Sanchez MD EXAMINATION: MM SCREENING [...] Lynette Lopez DO 03/28/2024 03:58 PM EST RP Dictated By: Lynette Lopez DO Signed By: <Electronically signed by Lynette Lopez DO in OV> 03/28/24 1558 DD/ 1435 TD/TT: 03/20/24 1449 Agricultural Technician: us Olman Lock MD IMG BI PROCEDURES Fin al Result * HPV mRNA E6/E7 w/Reflex to HPV Genotypes 16, 18/45 (04/27/2023 10:46 AM EST) HPV nRNA E6/E7 Not Detected Not Detected [facility] Comment:Methodology: Transcr iption-Mediated AmplificationThis assay detects E6/E7 viral messenger RNA (mRNA) from 14high-risk HPV types (16,18,31,33,35,39,45,51,52,56,58,59,66,68).Cervical sources are required for HPV testing.If a vaginal source from a patient who has had atotal hysterectomy with removal of cervix wassubmitted, please contact the testing laboratoryfor alternative testing options.For additional information, please refer tohttp://education.Inxero/faq/BHS968g3(This link if provided for information/educational purposes only.)THIS TEST WAS PERFORMED AT:[employer] [place] [phone] TARIQ MD HPV mRNA E6/E7 [facility] HPV 16 RNA [facility] HPV 18/45 RNA [facility] 04/27/2023 10:4 6 AM EST 04/28/2023 8:20 AM EST us Sarath Salgado CNM LAB CYTOLOGY ORDERABLES F inal Result [facility] [address] [place] [phone] * Pap Smear (04/27/2023 10:46 AM EST) Swab Cervix uteri structure / Unknown 04/27/2023 10:46 AM EST 04/28/2023 8:20 AM EST [facility] - 05/05/2023 1:48 PM EST ----- ------- Name: Katerina Clifton Age/Sex: 52/F : 1970 Unit#: [id number] Attend Dr: Re04/27/23 Status: PRE [facility] Disch: ----- ------- SPEC : [id number] RECD: 04/28/23 STATUS: KHALIF JOAN NUM: [id number] PHILIPP: 04/27/23-1046 [facility] DR: SARATH SALGADO ENTERED: 04/28/23 SP TYPE: Pap Smr [facility] DR: ORDERED: Pap Smear Interpretation Satisfactory for evaluation. Negative for intraepithelial lesion or malignancy. HPV mRNA E6/E7: NOT DETECTED This assay detects E6/E7 viral messenger RNA (mRNA) from 14 high-risk HPV types (16, 18, 31, 33, 35, 39, 45, 51, 52, 56, 58, 59, 66, 68) HPV testing performed by [employer], [place], [place]. See reference laboratory portion of the EMR for entire report. Clinical Information LMP: Unknown date Previous PAP test: Unknown date/findings Material Received ThinPrep-Cervical ----- ------- Signed (signature on file) BECKA Ro ([facility]) 05/05/23 1348 ----- ------- END OF REPORT Sarath Salgado [facility] CYTOLOGY ORDERABLES F inal Result [facility] [address] [place] [phone] * Lipid Panel, Standard (09/20/2022 6:24 AM EDT) Triglycerides 205 mg/dL [facility] Comment:Desirable Triglyceri de: less than 150 mg/dLBorderline High Triglyceride 150-199 mg/dLHigh Triglyceride: 200-499 mg/dLVery High Triglyceride: greater than or equal to 5OO mg/dL Cholesterol 176 mg/dL [facility] Comment:Desirable Cholestero l: less than 200 mg/dLBorderline High Cholesterol: 200-239 mg/dLHigh Cholesterol: greater than 239 mg/dL LDL Cholesterol Calculated 96 mg/dl [facility] Comment:Desirable LDL: less than 100 mg/dLNear Optimal/Above Optimal LDL: 110- 129 mg/dLBorderline High LDL: 130-159 mg/dLHigh LDL: 160-189 mg/dLVery High LDL: greater than or equal to 190 mg/dL HDL Cholesterol 39 mg/dL [facility] Comment:Desirable HDL: great er than 40 mg/dL Note: This HDL assay may give artificially low results in patients with liver disease. 09/20/2022 6:24 AM EDT 09/20/2022 6:24 AM EDT [facility] External Provider LAB BLO OD ORDERABLES Final Result Performing Organization Address [facility] de Phone Number [facility] [address] [place] [address] [phone] * Albumin, Random Urine W/Creatinine (09/20/2022 6:23 AM EDT) Creatinine, Urine 116.54 mg/dL [facility] Microalbumin Urine 8.0 mg/L [facility] Microalbum Creatinine Ratio Ur 6.8 ug/mg cr [facility] Comment:Albumin/Creatinine R atio Reference Ranges: Normal: < 30 ug/mg creatinine Microalbuminuria: 30 - 300 ug/mg creatinineClinical Albuminuria: > 300 ug/mg creatinine 09/20/2022 6:23 AM EDT 09/20/2022 7:08 AM EDT [facility] External Provider LAB URI NE ORDERABLES Final Result Performing Organization Address [facility] de Phone Number [facility] [address] [place] [phone] * Hm Colonoscopy (05/01/2019) Colonoscopy Normal Normal 05/01/2019 Narrative Rowan Pandya - 05/01/2019 2:59 PM EST Recommended 5 year follow up Historical Provider HEALTH MAINTENANCE Edited Result - Final from Last 3 Months or Most Recently Relevant to Health Maintenance Additional Health Concerns Active Problems Noted Date Diagnosed Date Help patients manage their type 2 diabetes 03/29 Weekly blood pressure task 03/29/2025 Help patients manage their type 2 diabetes 03/29 Patient has chronic kidney disease 03/29/2025 Weekly blood pressure task 03/29/2025 Patient has chronic kidney disease 03/29/2025 Insurance , [address] [address] Care Teams Pharmacy Scheduler Relationship Specialty Start Date End Date Olman Holguin MD [address] [place] [phone] PCP - General Internal Medicine 12/11/13
--- OUTSIDE RECORDS SUMMARY | 2025-04-25 17:22 | XMS_ITS | Encounter Summary ---
Author Organization [employer] Address [address] [place] [address] Care Team Providers Care Food Science Technician Name Role Phone Olman Holguin MD Primary Care Provide r Encounter Details Date Type Department Care Team ([facility] st Contact Info) Description 09/15/2022 Abstract [facility] MEDICINE [address] [place], [place] [phone] Olman Holguin MD [address] [place] [address] Social History Tobacco Use Types Packs/Day Years [...] year follow up us Historical Provider [facility] Edited Result - Final documented in this encounter Visit Diagnoses Not on filedocumented in this encounter Care Teams Food Science Technician Relationship Specialty Start Date End Date Olman Holguin MD [address] [place] [phone] PCP - General Internal Medicine 12/11/13 documented as of this encounter
--- OUTSIDE RECORDS SUMMARY | 2025-04-25 17:22 | XMS_ITS | Encounter Summary ---
Author Organization [employer] Address [address] [place] [address] [place] [address] Care Team Providers Care Econometrician Name Role Phone Olman Holguin MD Primary Care Provide r Reason for Visit * Reason Comments Med Refill Encounter Details Date Type Department Care Team ([facility] st Contact Info) Description 04/06/2024 Refill [facility] [address] [place], [place] [phone] Olman Holguin MD [address] [place], [place] [phone] Type 2 diabetes mellitus without complication, without long-term current use of insulin ([facility]) Social History Tobacco Use Types Packs/Day Years [...] documented as of this encounter Care Teams Econometrician Relationship Specialty Start Date End Date Olman Holguin MD [address] [place] [phone] PCP - General Internal Medicine 12/11/13 documented as of this encounter
--- OUTSIDE RECORDS SUMMARY | 2025-04-25 17:22 | XMS_ITS | Clinical Summary ---
Author Organization [facility] Address [address] [place] [phone] Phone Care Team Providers Care Courseware Developer Name Role Phone Olman Sanchez MD Primary [...] Date Comments DM (diabetes mellitus) (CMS/HCC V24, CMS/[facility] V28 ) Asthma Social History Tobacco Use Types Packs/Day Years Used Date Smoking Tobacco: Never Assessed Comments Unknown Sex and Gender Information Value Date Recorded Sex Assigned at Not on file Legal Sex Female 11:06 AM EDT Gender Identity Not on file Sexual Orientation Not on file Last Filed Vital Signs Vital Sign Reading [...] of 2 - PCV) 08/30/2002 08/30/2001 RSV Immunization Adult Patients (1 - Risk 50-74 years 1-dose series) 2018 HIV Screening 01/04/2024 Hepatitis C Screening 01/04/2024 [...] to complete this topic Insurance Care Teams Courseware Developer Relationship Specialty Start Date End Date Olman Sanchez MD [address] [place] [address] [place] [phone] PCP - General 10/07/13
--- OUTSIDE RECORDS SUMMARY | 2025-04-25 17:22 | XMS_ITS | Encounter Summary ---
Author Organization [email or web address] Address [address] [facility] 7 [place] [address] Care Team Providers Care Youth Court Judge Name Role Phone Olman Holguin MD Primary Care Provide r Reason for Visit * Reason Comments Med Change Request Encounter Details Date Type Department Care Team ([facility] st Contact Info) Description 08/12/2024 Refill [facility] MEDICINE [address] [place], [place] [phone] Mich Combs MD [address] [place] [address] Pruritus Social History Tobacco Use Types Packs/Day [...] documented as of this encounter Care Teams Youth Court Judge Relationship Specialty Start Date End Date Olman Holguin MD [address] [place] [address] PCP - General Internal Medicine 12/11/13 documented as of this encounter
--- OUTSIDE RECORDS SUMMARY | 2025-04-25 17:23 | XMS_ITS | Encounter Summary ---
Author Organization [employer] Address [address] [place] [address] [place] [address] Care Team Providers Care Veterinary Practitioner Name Role Phone Olman Holguin MD Primary Care Provide r Reason for Visit * Reason Onset Date Comments Med Refill 12/28/2023 Encounter Details Date Type Department Care Team ([facility] st Contact Info) Description 12/28/2023 Refill [facility] MEDICINE [address] [place], [place] [phone] Olman Holguin MD [address] [place] [address] Type 2 diabetes mellitus without complication, without long-term current use of insulin ([facility]) Social History Tobacco Use Types [...] documented as of this encounter Care Teams Veterinary Practitioner Relationship Specialty Start Date End Date Olman Holguin MD [address] [place] [address] PCP - General Internal Medicine 12/11/13 documented as of this encounter
--- OUTSIDE RECORDS SUMMARY | 2025-04-25 17:23 | XMS_ITS | Encounter Summary ---
Author Organization [employer] Address [address] [place] [address] 7 [place] [address] Care Team Providers Care Permastone Applicator Name Role Phone Olman Holguin MD Primary Care Provide r Reason for Visit * Reason Comments Med Refill Encounter Details Date Type Department Care Team ([facility] st Contact Info) Description 02/02/2025 Refill [facility] MEDICINE [address] [place], [place] [phone] Paola Nuñez MD [address] [place] [address] Social History Tobacco Use Types Packs/Day Years [...] documented as of this encounter Care Teams Permastone Applicator Relationship Specialty Start Date End Date Olman Holguin MD [address] [place] [id number] PCP - General Internal Medicine 12/11/13 documented as of this encounter
== END 2025-04-25 13:18 | disposition home or self-care (01) ==
LOC: HO.MAMMO 13:17
PROVIDERS: Visit Provider Internal Medicine
DX: Z12.31 Encounter for screening mammogram for malignant neoplasm of breast (principal)
CPT/HCPCS: 77063; 77067

== ENCOUNTER → 2025-04-25 13:45 | Outpatient (BNV) | payer OTHER, SELFPAY | PROVIDERS: Visit Provider Internal Medicine | DX: Z12.31 Encounter for screening mammogram for malignant neoplasm of breast (principal) | CPT/HCPCS: 77063; 77067 ==